=== PATIENT | female | born 1950 | race Caucasian/White ===

== ENCOUNTER → 2024-11-06 | Outpatient (CLI) | payer MEDICARE, SELFPAY ==
[2024-11-06 13:06] LABS: Hematocrit 39.1 % (37-47); Hemoglobin 13.2 g/dL (12.0-15.0); Immature Granulocytes Count 0.030 X10^3/uL (0.0-0.0); Mean Corp Hgb Conc 33.8 g/dL (32-36); Mean Corpuscular Volume 93.5 fL (81-99); Mean Platelet Vol. 9.0 fl (6.2-12.0); NRBC Flagged by Analyzer 0 % (0-5); Platelet Count 241 K/mm3 (150-450); RBC Distribution Width CV 12.4 % (11.6-14.6); RBC Distribution Width SD 42.9 fl (35.1-43.9); Red Blood Count 4.18 M/mm3 (4.2-5.4); White Blood Count 7.5 K/mm3 (4.4-11.0)
--- NOTE | 2024-11-06 13:15 | CT_ITS ---
PROCEDURE: EXTREMITY LOWER WITHOUT CONTRA 11/06/2024 REASON FOR EXAM: KNEE PAIN TECHNIQUE: EXTREMITY LOWER WITHOUT CONTRA Coronal and Sagittal reconstruction series were provided. CONTRAST: None One or more dose reduction techniques were used (e.g., Automated exposure control, adjustment of the mA and/or kV according to patient size, use of iterative reconstruction technique). 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 There is subcortical cyst formation in the medial and lateral femoral condyle and medial tibial plateau. Marginal osteophytes are present at all articular surfaces. There is a moderate joint effusion. There is no acute fracture or dislocation. Muscular structures appear intact. There is no soft tissue mass or cyst. There is a 2.4 x 1.3 cm enlarged left inguinal lymph node, image 55/89. There is no visible atherosclerosis. Radiopaque sutures are noted in the rectum. CT/Extremity Lower without Contra IMPRESSION: There is moderate to severe tricompartment osteoarthritis, most severe in the m edial compartment. There is a 2.4 x 1.3 cm enlarged left inguinal lymph node, image 55/89. Reading Location: [facility]
[2024-11-06 13:24] LABS: Prothrombin Time (Protime)PT. 13.5 SECONDS (11.7-14.9)
[2024-11-06 13:25] LABS: Partial Thromboplast Time 25.9 Seconds (24.1-36.2)
[2024-11-06 13:59] LABS: AST(SGOT) 29 U/L (<=31); Alanine Aminotransfer ALT/SGPT 35 U/L (<=34); Albumin, Serum 4.4 g/dL (3.4-4.8); Alkaline Phosphatase 64 U/L (35-104); Bilirubin, Direct 0.12 mg/dL (0.00-0.30); Globulin 2.7 g/dL (2.2-4.2); Magnesium 2.1 mg/dL (1.5-2.2)
[2024-11-06 14:04] LABS: Anion Gap 10 (5-15); BUN 14 mg/dL (4-19); BUN/Creat Ratio 19.0 RATIO (10-20); Calcium,Total 9.9 mg/dL (7.6-11.0); Carbon Dioxide 26.2 mmol/L (21.0-32.0); Chloride 104 mmol/L (98-108); Glucose 98 mg/dL (70-99); Potassium 4.1 mmol/L (3.3-5.1)
== END | disposition home or self-care (01) ==
PROVIDERS: Anesthesiology; PCP Internal Medicine; Referring Provider Student in an Organized Health Care Education/Training Program; Visit Provider Student in an Organized Health Care Education/Training Program
DX: Z01.818 Encounter for other preprocedural examination (principal); M17.12 Unilateral primary osteoarthritis, left knee
CPT/HCPCS: 36415; 73700; 80048; 80076; 83735; 85025; 85610; 85730; 87081

== ENCOUNTER 2024-11-27 07:08 | Day surgery (SDC) | payer MEDICARE, SELFPAY ==
--- NOTE | 2024-11-23 14:19 | PAT.ANE_ITS ---
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 When Was Last Pacemaker Check QUESTION #4 FULL TEXT: You/Your Family Experience fever (hyperthermia) with Anesthesia Last Oral Intake Last Oral intake: Last Oral Intake NPO since Meds taken in AM with sips of water? Meds patient instructed to take am of surgery PONV PONV - environmental engineering manager: PONV - environmental engineering manager Female Yes 11/01/24 14:50 HX of Motion Sickness No 11/01/24 14:50 HX of N/V After Surgery No 11/01/24 14:50 Non-Smoker Yes 11/01/24 14:50 Duration of Surgery greater Yes 11/01/24 14:50 than 60 minutes Number of Risk Factors 3 11/01/24 14:50 PONV Score Moderate Risk 11/01/24 14:50 Respiratory Assessment Respiratory Assessment - environmental engineering manager: Respiratory Tract Infection Hx - environmental engineering manager Hx Respiratory Tract Infection No 11/01/24 14:50 STOP Sleep Apnea STOP Sleep Apnea - environmental engineering manager: STOP Sleep Apnea - environmental engineering manager Hx Hypertension Yes: CONTROLLED WITH MED 11/01/24 14:50 Hx Sleep Apnea No 11/01/24 14:50 CPAP BIPAP Do you snore loudly (louder No 11/01/24 14:50 than talking or can be heard Do you often feel tired/ Yes 11/01/24 14:50 fatigued/ sleepy during daytime? Has anyone observed you stop No 11/01/24 14:50 breathing during sleep? STOP Results Positive 11/01/24 14:50 QUESTION #5 FULL TEXT : Do you snore loudly (louder than talking or can be heard through closed doors)? 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 Specify any problems Hx of Preganancy in last 3 No 11/01/24 14:50 Months Nurse Filling Out Transfusion DSCHRIBER 11/01/24 14:50 & Questions: Date: 11/01/24 11/01/24 14:50 Time: 14:55 11/01/24 14:50 Patient unable to answer at this time (ie. confused, unrespo /Reproduction History /Reproductive History - environmental engineering manager: /Reproductive Hx- environmental engineering manager Hx Now No 11/01/24 14:50 Gestational Age (in weeks): EDC: Hx Hx Para Hx Section SAB No 11/01/24 14:50 PFSH Medical History (Updated 11/01/24 @ 15:05 by Megha Samuel) Wears glasses Cancer Depression Anxiety Alcohol use Arthritis Fatty liver Easy bruising Injury of back Back pain History of diverticulitis Former smoker Asthma History of pain when walking History of edema History of echocardiogram History of stress test Hypertension Home Medications ?Medication ?Instructions ?Recorded ?Last Taken ?Type albuterol sulfate 90 mcg/actuation 1 inh inhalation Q6 H PRN shortness 11/01/24 Unknown History breath activated powder inhaler of breath or wheezing ascorbic acid (vitamin C) 500 mg 500 mg PO QDAY Unknown History chewable tablet (C-500) bupropion HCl 150 mg 24 hr tablet, 150 mg PO DAILY Unknown History extended release fluticasone 100 mcg-salmeterol 50 1 inh inhalation BID 11/01/24 Unknown History mcg/dose blistr powdr for inhalation (Advair Diskus) fluticasone propionate 50 2 spray intranasal DAILY Unknown History mcg/actuation nasal spray,suspension folic acid 1 mg tablet 1 mg PO DAILY 11/01/24 Unkno wn History ipratropium 0.5 mg-albuterol 3 mg 3 ml inhalation 4X/D AY PRN 11/01/24 Unknown History (2.5 mg base)/3 mL nebulization shortness of breath or wheezing soln lisinopril 10 mg tablet 10 mg PO DAILY 11/01/24 Unkn own History mecobalamin (vitamin B12) 1,000 1,000 mcg PO DAILY Unknown History mcg chewable tablet multivitamin (One-A-Day Essential 1 tab PO DAILY 11/01 Unknown History tablet) pyridoxine (vitamin B6) 100 mg 100 mg PO DAILY 5 Unknown History tablet Allergy/AdvReac Type Severity Reaction Status Date / Time No Known Allergies Allergy Verified 11/01/24 14:41 Surgical History (Updated 11/01/24 @ 15:05 by Megha Samuel) History of esophagogastroduodenoscopy (EGD) Hx of colonoscopy Hx of right knee surgery Hx of umbilical hernia repair Hx of right cataract extraction Hx of left cataract extraction History of partial colectomy Hx of hysterectomy Hx of cholecystectomy Hx of appendectomy Social History Smoking Status: Former smoker Audit: Pertinent Findings Pertinent Findings EKG Perinent findings: 2024. Normal sinus rhythm. Anterior septal infarct, age undetermined. Stress test pertinent findings: November 22, 2024. EKG portion of Lexiscan stress test is negative for inducible ischemia. EF of 53%. SPECT perfusion images during rest and stress show homogenous radiotracer uptake. No defects to suggest ischemia or infarction. Consult pertinent findings: November 14, 2024. Dr. Hernandez. Patient is cleared for scheduled procedure. Recommendation Anesthesia Recommendation Anesthesia recommendation: OPTIMIZED for anesthesia
--- NOTE | 2024-11-23 16:44 | HP.PCM_ITS ---
History and Physical History and Physical Patient Name: Sandra BurlesonB: 1950 From: DATE OF PRE-OPERATIVE EXAM: 11/22/2024 DATE OF SURGERY: 11/27/2024 SCHEDULED PROCEDURE: Robotic assisted left total knee arthroplasty HISTORY OF PRESENT ILLNESS: Patient has had left knee for the past 3 years. Patient states that her pain is constant. Patient states that walking makes her pain worse. Patient states that sitting, resting, elevating the leg helps to alleviate her pain. Patient states that she is no longer able to do leisurely activities such as golf due to her pain. Patient states that she has tried rest, ice, elevation, compression, home exercises, oral medications with help. Patient states oral medications she has tried include Tylenol. Patient states that she has had 2 cortisone injections. Patient denies any history of surgery on the affected joint. Patient states that she has had to walk with a walker due to her left knee. Pain is interfering with her ability to arm activities of daily living as well as golf which she enjoys. She is to be ready for golf season next year. REVIEW OF SYSTEMS: Review Of Systems: Constitutional: Denies change in appetite, fever and weight change. Cardiovasular: Denies chest pain, heart murmur and irregular heartbeat. Respiratory: Denies cough, pneumonia, shortness of breath, tuberculosis and wheezing. Gastrointestinal: Denies constipation, diarrhea, heartburn, nausea, rectal itching, bloody stools and vomiting. Genitourinary: . (F Genital Sx) Denies incontinence. Musculoskeletal: Denies leg swelling, pain, trouble walking and weakness. Skin: Denies Raynaud's, history of shingles and tattoo. Neurological: Denies ambulatory dysfunction, dizziness, numbness/tingling and tremor. Psychiatric: Denies anxiety, insomnia and stress. Hematologic/Lymphatic: Denies anemia, bleeding/bruising tendency and past transfusion. Reviewed, no changes. PAST MEDICAL HISTORY: Advance Care Plan: Power Of Electrolysis Operator Effective Date: 11/08/2023 Living Will Effective Date: 11/08/2023 Past Medical History: Medical Problems: Asthma Cancer - SKIN Depression, Psoriasis, Arthritis, High Blood Pressure Accidents: Sports Related Injury - (08/2019) GOLFING- FELL Surgical Hx: Appendectomy - (1975) Gallbladder - (1994) [place] Hysterectomy - (1975) [facility] Colon Resection - (2013) Cataracts - (2014) DR. HERNANDEZ Hernia Repair - (2021) RT Knee- Arthro Medial Meniscectomy and Chondroplasty - (07/28/2024) [email or web address] Anesthesia Complications: None Assistive Devices: Glasses Reviewed, no changes. SOCIAL HISTORY: Social History: Marital: .Occupation: Retired.Work Status: Retired.Hand Dominance: Right- handed. Personal Habits: Cigarette Use: Former.Smokeless Tobacco: Never Used Smokeless Tobacco.E-Cigarette Use: Never used.Alcohol: Daily.Drug Use: Denies Use.Enjoy Exercising: Daily. Reviewed, no changes. VITALS: Ht: 64 Wt: 175lb Wt k.380 BMI: 30.0 BP: 142/90 Pulse: 84 Resp: 16 T: 97.7 T: 36.5C Pain Level: 0/10 O2SatR: 94 ALLERGIES: No Known Drug Allergy MEDICATIONS: Oxycodone HCL 5 mg 1-2 tab by mouth every 4-6 hours as needed for pain, Meloxicam 7.5 mg 1 by mouth twice a day for 4 weeks, Famotidine 20 mg 1 by mouth every day, Ondansetron HCL 4 mg 1-2 tablets by mouth every 8 hours as needed for nausea/vomiting, Multi Vitamin take one(1) tablet daily., Lisinopril 10 mg once a day, Wixela Inhub 250-50 mcg/Act twice a day, Effexor XR 150 mg daily, Allergy Relief 50 mcg/Act 1 by mouth every day, Cetirizine HCL 10 mg 1 by mouth every day, One-A-Day Essential 1po qday, Vitamin B6 100 mg 1 by mouth everyday, Vitamin B12 1000 mcg 1 by mouth every day, Folic Acid 1po qday, Garcinia Cambogia-Chromium 500-200 MG-mcg 1po qday, Turmeric 500 mg take per directions on bottle PRE-OP EXAM: General appearance:NORMAL Other: Eyes: Conjunctivae and lids: NORMAL Pupils: ERR Ears, Nose, Mouth, and Throat: NORMAL Other: Inspection of lips, teeth and gums: NORMAL Other: Neck: Examination of neck: no masses noted. Respiratory: Assessment of respiratory effort: NORMAL Other: Auscultation of lungs: clear to auscultation no wheezes, rhonchi or rales. Cardiovascular: Auscultation of heart: regular rate and rhythm, no murmurs, gallops or rubs. Exam of carotid arteries: NORMAL Other: Gastrointestinal: Exam of abdomen: soft, nontender, nondistended bowel sounds present. Lymphatic: Palpation of nodes in neck: NORMAL Other: Palpation of nodes in Axillae: NORMAL Other: Neurological: see below Psychiatric: Orientation to time, place and person: NORMAL Other: Mood and affect: NORMAL Other: PHYSICAL EXAMINATION: Knee Physical Exam General Appearance: well-nourished, well developed in no acute distress Orientation: oriented to person, place and time. Mood / Affect: calm Gait: normal Coordination: normal Knee Exam Bilateral Inspection / Palpation LE (R/L): Medial joint line tenderness bilaterally. 1+ right knee effusion Knee ROM (R/L): 0-130 bilaterally Knee A/P Stability (R/L): Héctor IA/IA; Posterior Drawer Neg B/L Knee M/L Stability (R/L): Varus / Valgus - Firm endpoints and stable B/L Strength LE: 5/5 EHL, Ankle Dorsiflexion, Ankle Plantar flexion bilaterally Sensation: Subjective normal distal sensation bilaterally Vasculature: <2 second capillary bilaterally LE Skin: no rashes or lesions bilaterally Special Tests: Carlos's positive medial right, Steinmann's positive right IMAGING STUDIES: XRAY Report Date of Study: 06/05/24 X-rays ordered and reviewed by myself personally in the office today reveal 4 views skeletally mature left knee weightbearing AP, tunnel view, lateral left knee, merchant view left knee demonstrates grade 4 medial compartment osteoarthritic changes with large periarticular osteophytes and complete loss of joint space and deformity the bone ends. Lateral compartment demonstrates moderate pericecal osteophytes with minimal joint space narrowing consistent with grade 2-3 osteoarthritis. The left knee demonstrates mild lateral tilt of the patella with lateral joint space narrowing and minimal osteophyte formation. IMPRESSION: Asthma Skin cancer Depression Psoriasis High blood pressure Hyperlipidemia Hepatic steatosis Primary osteoarthritis left knee Obesity PLAN: The surgeon did discuss and review all treatment options with the patient including surgical versus nonsurgical. At this time the patient does wish to proceed with the above-stated procedure. Potential risks benefits and complications of the procedure were discussed and reviewed with the patient including but not limited to , infection, nerve and blood vessel damage, persistent pain, numbness, tingling, paresthesias, blood clot, pulmonary em bolism, in the requirement for possible further surgery. Patient expressed full understanding. Has no further questions for the doctor. Does agree to proceed with the above-stated procedure, and has signed the appropriate surgery consent form. DVT prophylaxis: Aspirin 81 mg twice daily for 4 weeks postoperatively, LEATHA hose for 2 weeks postoperatively. Pain medications: Patient will be taking Tylenol 1000 mg every 8 hours, meloxicam for 30 days postoperatively, oxycodone as needed for pain control. Famotidine for 30 days postoperatively. Zofran as needed for nausea and vomiting Senna as needed for postoperative constipation. ___ I have re-examined the patient. There are no clinical changes since date of exam. ___ See progress notes for changes. ___ Dictated on admission Date: Time: Signature:
[2024-11-27] VITALS (10 sets, daily range): BP systolic 105–149; BP diastolic 64–91; PULSE 70–94; RESP 12–18; TEMP 36.1–36.9; O2SAT 93–100; BMI 28.4
--- OUTSIDE RECORDS SUMMARY | 2024-11-27 07:21 | XMS RPT_ITS | CCD ---
Author Organization [facility] Care Team Providers Care Astrophysics Professor Name Role Phone Christy Rodriguez Primary Care Provider MICHAEL GARCIA, DR MC Primary Care Physician Christy Rodriguez Primary Care Provider MICHAEL GARCIA, DR MC Attending Unavailable MICHAEL GARCIA, DR MC Primary Care Unavailable MICHAEL GARCIA, DR MC Attending Unavailable MICHAEL GARCIA, DR MC Primary Care Unavailable MICHAEL GARCIA, DR MC Primary Care Unavailable MICHAEL GARCIA, DR MC Attending Unavailable MICHAEL GARCIA, DR MC Primary Care Unavailable RICK COOPER Attending Unavaila ble Michael GARCIA, Dr. Mc Primary Care Provider Guera GARCIA, Dr. Muñoz Attending Provider [phone] Guera GARCIA, Dr. Muñoz Referring Provider [phone] MICHAEL GARCIA, DR MC Attending Unavailable MICHAEL GARCIA, DR MC Primary Care Unavailable MICHAEL GARCIA, DR MC Attending Unavailable MICHAEL GARCIA, DR MC Primary Care Unavailable TONI CEBALLOS DO Attending Unavailable MICHAEL GARCIA, DR MC Primary Care Unavailable MICHAEL GARCIA, DR MC Primary Care Unavailable TONI CEBALLOS DO Attending Unavailable TONI CEBALLOS DO Attending Unavailable MICHAEL GARCIA, DR MC Primary Care Unavailable Christy Rodriguez Primary Care Unavailable Toni Ceballos Attending Unavailable Christy Rodriguez Primary Care Unavailable Toni Ceballos Referring Unavailable Toni Ceballos Attending Unavailable Medications Current Medications Medication Drug Class(es) Dates Sig (Normalized) Sig (Original) 200 actuat albuterol 0.09 mg/actuat dry powder inhaler (3 sources) beta2-Adrenergic Agonist Start: 08-13-2025 Albuterol Sulfate 90 mcg/actuation aerosol powdr breath activated Active 1 NMA INHALATION EVERY 6 HOURS as needed for shortness of breath or wheezing November 01, 2024 12:00am take 2 puff(s) by in halation every six hours as needed for wheezing albuterol sulfate HFA 108 (90 Base) MCG/ACT inhaler Inhale 2 puffs into the lungs every 6 hours as needed for Wheezing 0 Active take 2 puff(s) by in halation every six hours as needed for wheezing albuterol sulfate HFA 108 (90 Base) MCG/ACT inhaler Inhale 2 puffs into the lungs every 6 hours as needed for Wheezing 0 Active Albuterol (Eqv-ProAir HFA) 90 mcg/inh inhalation aerosol (7 sources) Start: 2022 take 2 puff(s) by mouth every four to six hours Albuterol (Eqv-ProAir HFA) 90 mcg/inh inhalation aerosol inhale 2 puffs by mouth every 4 to 6 hours if needed Start Date: 06/20/22 Status: Ordered Medication Dispense Status: Completed Total Allowed Fills: 1 Fills Dispensed: 0 Start: 2022 take 2 puff(s) by mo uth every four to six hours Albuterol (Eqv-ProAir HFA) 90 mcg/inh inhalation aerosol inhale 2 puffs by mouth every 4 to 6 hours if needed Start Date: 06/20/22 Status: Ordered albuterol 0.833 mg/ml / ipratropium bromide 0.167 mg/ml inhalation solution (8 sources) Anticholinergic, beta2-Adrenergic Agonist Start: 11-01-2024 take 1 mL by inhalation four times daily as needed for wheezing Ipratropium-Albuterol 0.5 mg-3 mg(2.5 mg base)/3 mL solution for nebulization Active 3 mL INHALATION 4 TIMES DAILY as needed for shortness of breath or wheezing November 01, 2024 12:00am Start: 06-24-2022 End: 08-23-2022 albuterol-ipratropium 2.5 mg -0.5 mg/3 mL inhalation solution Dose = 3 mL, Inhalation, QID, and q4h prn., # 720 mL, 0 Refill(s), Pharmacy: [facility] #[id number], 167.7, cm, 04/01/23 23:28:00 EDT, Height Start Date: 06/24/22 Stop Date: 08/23/22 Status: Ordered Medication Dispense Status: Completed Quantity: 720.0 Unit: mL Total Allowed Fills: 1 Fills Dispensed: 0 albuterol sulfate HFA 108 (90 Base) MCG/ACT inhaler (2 sources) take 2 puff(s) by inhalation every six hours as needed for wheezing albuterol sulfate HFA 108 (90 Base) MCG/ACT inhaler Inhale 2 puffs into the lungs every 6 hours as needed for Wheezing 0 Active ascorbic acid 500 mg oral tablet (1 source) Vitamin C Start: take 1 tablet by mouth once daily Ascorbic Acid (Vitamin C) (C-500) 500 mg tablet,chewable Active 500 mg PO daily November 01, 2024 12:00am aspirin 81 mg delayed release oral tablet (7 sources) Platelet Aggregation Inhibitor, Nonsteroidal Anti-inflammatory Drug Start: aspirin 81 mg oral delayed release tablet Dose : 81 mg = 1 tab(s), Oral, Daily, 0 Refill(s) Start Date: 06/20/22 Status: Ordered Medication Dispense Status: Completed Total Allowed Fills: 1 Fills Dispensed: 0 24 hr buPROPion hydrochloride 150 mg extended release oral tablet (1 source) Aminoketone Start: take 1 tablet by mouth once daily Bupropion Hcl 150 mg tablet extended release 24 hr Active 150 mg PO DAILY November 01, 2024 12:00am cefuroxime 500 mg oral tablet (1 source) Cephalosporin Antibacterial Start: End: cefuroxime 500 mg oral tablet Dose : 500 mg = 1 tab(s), Oral, BID, X 7 day(s), # 14 tab(s), 0 Refill(s), 07/01/22 14:59:00 EDT, Pharmacy: [facility] #[id number], 167.7, cm, 06/20/22 23:28:00 EDT, Height, 79.4 Start Date: 06/24/22 Stop Date: 07/01/22 Status: Ordered cetirizine hydrochloride 10 mg oral tablet (4 sources) Histamine-1 Receptor Antagonist take 1 tablet by mouth once daily cetirizine (ZYRTEC) 10 MG tablet Take 10 mg by mouth daily 0 Active citalopram 20 mg oral tablet (4 sources) Serotonin Reuptake Inhibitor take 1 tablet by mouth once daily citalopram (CELEXA) 20 MG tablet Take 20 mg by mouth daily 0 Active fluticasone propionate 0.05 mg/actuat metered dose nasal spray (1 source) Corticosteroid Start: 025 Fluticasone Propionate 50 mcg/actuation spray,suspension Active 2 NMA INTRANASAL DAILY November 01, 2024 12:00am Fluticasone Propion-Salmeterol (19 sources) Corticosteroid, beta2-Adrenergic Agonist Start: 025 Fluticasone Propion-Salmeterol (Advair Diskus) 100-50 mcg/dose blister with device Active 1 NMA INHALATION TWICE A DAY November 01, 2024 12:00am Start: 2022 take 1 dose by inhal ation twice daily Advair Diskus 100 mcg-50 mcg inhalation powder Dose = 1 puff(s), Inhalation, BID, # 60 EA, 0 Refill(s) Start Date: 06/20/22 Status: Ordered Medication Dispense Status: Completed Quantity: 60.0 Unit: EA Total Allowed Fills: 1 Fills Dispensed: 0 Start: 2022 take 1 dose by inhal ation twice daily Advair Diskus 100 mcg-50 mcg inhalation powder Dose = 1 puff(s), Inhalation, BID, # 60 EA, 0 Refill(s) Start Date: 06/20/22 Status: Ordered Start: 2022 take 1 dose by inhal ation twice daily Wixela Inhub 100 mcg-50 mcg inhalation powder Dose = 1 puff(s), Inhalation, BID, # 60 EA, 0 Refill(s) Start Date: 06/20/22 Status: Ordered Medication Dispense Status: Completed Quantity: 60.0 Unit: EA Total Allowed Fills: 1 Fills Dispensed: 0 take 1 puff(s) by in halation every twelve hours fluticasone-salmeterol (ADVAIR) 100-50 MCG/DOSE diskus inhaler Inhale 1 puff into the lungs every 12 hours 0 Active folic acid 1 mg oral tablet (1 source) Start: 11-01-2024 take 1 tablet by mouth once daily Folic Acid 1 mg tablet Active 1 mg PO DAILY November 01, 2024 12:00am lisinopril 10 mg oral tablet (1 source) Angiotensin Converting Enzyme Inhibitor Start: 11-01-2024 take 1 tablet by mouth once daily Lisinopril 10 mg tablet Active 10 mg PO DAILY November 01, 2024 12:00am mecobalamin 1 mg chewable tablet (1 source) Start: 11-01-2024 take 1 tablet by mouth once daily Mecobalamin (Vitamin B12) 1,000 mcg tablet,chewable Active 1000 ug PO DAILY November 01, 2024 12:00am Multivitamin (One-A-Day Essential) tablet (1 source) Start: 11-01-2024 Multivitamin (One-A-Day Essential) tablet Active 1 {tbl} PO DAILY November 01, 2024 12:00am nebivolol 5 mg oral tablet (7 sources) Start: 2022 Bystolic 5 mg oral tablet Dose : 5 mg = 1 tab(s), Oral, qDay, # 30 tab(s), 0 Refill(s) Start Date: 06/20/22 Status: Ordered Medication Dispense Status: Completed Quantity: 30.0 Unit: tab(s) Total Allowed Fills: 1 Fills Dispensed: 0 24 hr venlafaxine 150 mg extended release oral capsule (7 sources) Serotonin and Norepinephrine Reuptake Inhibitor Start: 2022 venlafaxine 150 mg oral capsule, extended release Dose : 150 mg = 1 cap(s), Oral, qDayM, 0 Refill(s) Start Date: 06/20/22 Status: Ordered Medication Dispense Status: Completed Total Allowed Fills: 1 Fills Dispensed: 0 vitamin b6 100 mg oral tablet (1 source) Start: 11-01-2024 take 1 tablet by mouth once daily Pyridoxine (Vitamin B6) 100 mg tablet Active 100 mg PO DAILY November 01, 2024 12:00am Completed/Discontinued Medications Medication Drug Class(es) Dates Sig (Normalized) Sig (Original) 12 hr guaiFENesin 600 mg extended release oral tablet (8 sources) Start: 2022 End: 07-01-2022 Mucinex 600 mg oral tablet, extended release Dose : 600 mg = 1 tab(s), Oral, q12h, # 14 tab(s), 0 Refill(s) Start Date: 06/20/22 Stop Date: 06/27/22 Status: Ordered Medication Dispense Status: Completed Quantity: 14.0 Unit: tab(s) Total Allowed Fills: 1 Fills Dispensed: 0 predniSONE 10 mg oral tablet (7 sources) Start: 06-24-2022 End: 07-08-2022 take 1 tablet by mouth once daily prednisone 10mg tab (TAPER) 84-69-77-30-20-10- 5mg x 2days/dose, Oral, qDay, 3T9ppio,5Z7ezbf,4X 2days,6M2yplk,2X2d ays,6X6qymh, X2 days., # 43 tab(s), 0 Refill(s), Pharmacy: [facility] #[id number], 167.7, cm, 06/20/22 23:28:00 EDT, Height Start Date: 06/24/22 Stop Date: 07/08/22 Status: Ordered Medication Dispense Status: Completed Quantity: 43.0 Unit: tab(s) Total Allowed Fills: 1 Fills Dispensed: 0 Problems Active Problems Problem Classification Problem Date Documented Da te Episodic/Chronic Asthma (1 source) Asthma; Translations: [Unspecified asthma, uncomplicated] Onset: 06-22-2022 Chronic Essential hypertension (1 source) Essential hypertension; Translations: [Essential (primary) hypertension] Onset: 06-21-2022 Chronic Fever of unknown origin (1 source) Fever; Translations: [Fever, unspecified] Onset: 06-21-2022 Episodic Nonspecific chest pain (1 source) Precordial pain; Translations: [Precordial pain] Onset: 11-15-2024 Episodic Other screening for suspected conditions (not mental disorders or infectious disease) (1 source) Patient encounter status; Translations: [Encounter for screening mammogram for malignant neoplasm of breast] Episodic Pneumonia (except that caused by tuberculosis or sexually transmitted disease) (16 sources) Pneumonia; Translations: [Pneumonia, unspecified organism] Onset: 06-22-2022 Episodic Residual codes; unclassified (1 source) Menopause present; Translations: [Asymptomatic menopausal state] Episodic Past or Other Problems Problem Classification Problem Date Documented Da te Episodic/Chronic Cataract (8 sources) Combined forms of age-related cataract, right eye; Translations: [Combined forms of age-related cataract, left eye] Onset: 08-25-2018 Resolved: 10-17-2018 08-29-2018 Chronic Joint disorders and dislocations; trauma-related (1 source) Complex tear of medial meniscus, current injury, right knee, subsequent encounter; Translations: [Complex tear of medial meniscus, current injury, right knee, subsequent encounter] Onset: 08-04-2024 Episodic Results Test Name Value Interpretation Reference Range Facility MR/PATGovind 11-23-2024 MR/PAT.[facility] Medical Records Department [address] [place] [address] PAT - Anesthesia 11/23/24 1419 MR#: [id number] Acct: [id number] Name: SANDRA SRIVASTAVA Rep #: [id number] : 1950 74 From: Massimo Billings MD PCP: Dr. Christy Rodriguez, DO Status:PRE ALC Y Race: C [place] [facility] [place]Assessment Diagnosis/Proposed Procedure Planned Operative Procedure(s): LEFT TOTAL KNEE ARTHROPLASTY Anesthesia History Anesthesia History - patent agent: Anesthesia History - patent agent Hx Hospitalization No 11/01/24 14:50 Any Problems With Anesthesia No 11/01/24 14:50 Cholinesterase deficiency No 11/01/24 14:50 You/Your Family Experience No 11/01/24 14:50 fever (hyperthermia) with Relationship Recent Exposure to Contagious Disease Does patient have nerve No 11/01/24 14:50 stimulator Patient instructed to have device shut off --Does patient have Pacemaker or ICD? When Was Last Pacemaker Check QUESTION #4 FULL TEXT: You/Your Family Experience fever (hyperthermia) with Anesthesia Last Oral Intake Last Oral intake: Last Oral Intake NPO since Meds taken in AM with sips of water? Meds patient instructed to take am of surgery PONV PONV - patent agent: PONV - patent agent Female Yes 11/01/24 14:50 HX of Motion Sickness No 11/01/24 14:50 HX of N/V After Surgery No 11/01/24 14:50 Non-Smoker Yes 11/01/24 14:50 Duration of Surgery greater Yes 11/01/24 14:50 than 60 minutes Number of Risk Factors 3 11/01/24 14:50 PONV Score Moderate Risk 11/01/24 14:50 Respiratory Assessment Respiratory Assessment - patent agent: Respiratory Tract Infection Hx - patent agent Hx Respiratory Tract Infection No 11/01/24 14:50 STOP Sleep Apnea STOP Sleep Apnea - patent agent: STOP Sleep Apnea - patent agent Hx Hypertension Yes: CONTROLLED WITH MED 11/01/24 14:50 Hx Sleep Apnea No 11/01/24 14:50 CPAP BIPAP Do you snore loudly (louder No 11/01/24 14:50 than talking or can be heard Do you often feel tired/ Yes 11/01/24 14:50 fatigued/ sleepy during daytime? Has anyone observed you stop No 11/01/24 14:50 breathing during sleep? STOP Results Positive 11/01/24 14:50 QUESTION #5 FULL TEXT : Do you snore loudly (louder than talking or can be heard through closed doors)? Tobacco Use History Tobacco Use History - patent agent: Tobacco Use History - patent agent Tobacco Use Smoking Status Former smoker 11/01/24 14:50 Hx Tobacco Use Yes 11/01/24 14:50 Years Smoking Packs Smoked per Day Smoking Cessation Date was No - quit smoking greater 11/01/24 14:50 within the last 15 years than 15 years ago Hx Smoking Cessation Date Hx Smoking Cessation Counseling Hematologic Medial History Hematologic Hx - patent agent: Hematologic Medical Hx - manganese heater Hx of Blood Transfusion No 11/01/24 14:50 Hx of Transfusion in last 3 No 11/01/24 14:50 Months Date of Last Transfusion (if within last 3 months) Ever experience any problems No 11/01/24 14:50 with transfusion(s)? Specify any problems Hx of Preganancy in last 3 No 11/01/24 14:50 Months Nurse Filling Out Transfusion DSCHRIBER 11/01/24 14:50 Questions: Date: 11/01/24 11/01/24 14:50 Time: 14:55 11/01/24 14:50 Patient unable to answer at this time (ie. confused, unrespo /Reproduction History /Reproductive History - patent agent: /Reproductive Hx- patent agent Hx Now No 11/01/24 14:50 Gestational Age (in weeks): EDC: Hx Hx Para Hx Section SAB No 11/01/24 14:50 PFSH Medical History (Updated 11/01/24 @ 15:05 by Megha Samuel) Wears glasses Cancer Depression Anxiety Alcohol use Arthritis Fatty liver Easy bruising Injury of back Back pain History of diverticulitis Former smoker Asthma History of pain when walking History of edema History of echocardiogram History of stress test Hypertension Home Medications ???Medication ???Instructions ???Recorded ???Last Taken ???Type albuterol sulfate 90 mcg/actuation 1 inh inhalation Q6H PRN shortne ss 11/01/24 Unknown History breath activated powder inhaler of breath or wheezing ascorbic acid (vitamin C) 500 mg 500 mg PO QDAY 11/01/24 Unknown Hi story chewable tablet (C-500) bupropion HCl 150 mg 24 hr tablet, 150 mg PO DAILY 11/01/24 Unknown History extended release fluticasone 100 mcg-salmeterol 50 1 inh inhalation BID 11/01/24 Unk nown History mcg/dose blistr powdr for inhalation (Advair Diskus) fluticasone propionate 50 2 spray intranasal DAILY 11/01/24 (more content not included)... Normal [facility] MYOCARDIAL SPECT STRESS/R ESTon 11-23-2024 PR MYOCARDIAL SPECT STRESS/REST ORIGINAL PR MYOCARDIAL SPECT STRESS/REST CLINICAL STATEMENT: PRECORDIAL PAIN TECHNIQUE: Lexiscan dose:0.4 mg Radiopharmaceutical (stress): Tc-99m Sestamibi Dose:25.4 mCi Radiopharmaceutical (rest): Tc-99m Sestamibi Dose:9.9 mCi SPECT acquisition and processing Reconstruction and reorientation of SPECT images into short axis, vertical and horizontal long axis planes Quantitative LVEF assessment COMPARISON:None REPORT:Overall, image quality is good. Rotating planar images show no significant patient motion. SPECT perfusion images during rest and stress show homogenous radiotracer uptake. No defects to suggest ischemia or infarction. GATED SPECT images show normal LV size and function. LVEF calculated at 53% IMPRESSION: 1. No evidence for ischemia. 2. No evidence of infarction. 3. Normal LV size and function. 4. No previous for comparison. Interpreted By: Bebo Lindsay Preliminary Report By: Bebo Lindsay Electronically Signed By: Bebo Lindsay Dictated Date: 11/23/2024 8:14:15 AM Prelim Date: 11/23/2024 8:14:15 AM Sign Date: 11/23/2024 8:17:50 AM Ordering Provider:Christy Rodriguez Normal [facility] MRSA/SAID NASAL SCREENon MRSA+SAID SCRN Reason for Exam: PRE OP MRSA MRSA Negative S. AUREUS S. aureus Negative Normal [facility] Comment on above: Performed By: #### L 500.2500, L100.0100, M100.651 #### [facility] [address] [place], [place], [id number] Absolute lymphocyte countOrd ered By: Toni Ceballos on 11-06-2024 Lymphocytes Auto (Unsp spec) [#/Vol] 1.74 10*3/uL 0.83-4.51 [facility] Absolute neutrophil countOrd ered By: Toni Ceballos on 11-06-2024 Neutrophils (Bld) [#/Vol] 4.3 10*3/uL 2.0-7.7 [facility] Activated partial thrombopla stin time (aPTT) in platelet poor plasma by coagulation aOrdered By: Norman Acosta on 11-06-2024 aPTT Coag (PPP) [Time] 25.9 s 24.1-36.2 [facility] Anion gap in Serum or Plasma Ordered By: Toni Ceballos on 11-06-2024 Anion gap [Moles/Vol] 10 mmol/L 5-15 [facility] Automated lymphocyte count a s percentage of total leukocytesOrdered By: Toni Ceballos on 11-06-2024 Lymphocytes/100 WBC Auto (Unsp spec) 23.4 % - [facility] BUN/creatinine ratioOrdered By: Toni Ceballos on 11-06-2024 Urea nitrogen/Creatinine [Mass ratio] 19.0 mg/mg 10- [facility] Basic Metabolic Profile (BMP )on 11-06-2024 BUN/CRE 19.0 RATIO Normal - [facility] Comment on above: Performed By: #### L 500.2500, L100.0100, M100.651 #### [facility] [address] [place], [address] Calcium [Mass/Vol] 9.9 mg/dL Normal 7.6-11.0 [facility] Comment on above: Performed By: #### L 500.2500, L100.0100, M100.651 #### [facility] [address] [place], [address] Chloride [Moles/Vol] 104 mmol/L Normal 98-108 [facility] Comment on above: Performed By: #### L 500.2500, L100.0100, M100.651 #### [facility] [address] [place], [address] CO2 [Moles/Vol] 26.2 mmol/L Normal 21.0-32.0 [facility] Comment on above: Performed By: #### L 500.2500, L100.0100, M100.651 #### [facility] [address] [place], [address] Creatinine [Mass/Vol] 0.76 mg/dL Normal 0.70-1.20 [facility] Comment on above: Performed By: #### L 500.2500, L100.0100, M100.651 #### [facility] [address] [place], [address] GAP 10 Normal 5-15 [facility] Comment on above: Performed By: #### L 500.2500, L100.0100, M100.651 #### [facility] [address] [place], [address] GFR/1.73 sq M.predicted among non-blacks MDRD (S/P/Bld) [Vol rate/Area] 83 mL/min/{1.73_m2} Normal >60 [facility] Comment on above: Result Comment: mL/m in/1.73m2 CKD-EPI Creatinine Equation (2020) Performed By: #### L 500.2500, L100.0100, M100.651 #### [facility] [address] [place], [address] Glucose [Mass/Vol] 98 mg/dL Normal 70-99 [facility] Comment on above: Performed By: #### L 500.2500, L100.0100, M100.651 #### [facility] [address] [place], [address] Potassium [Moles/Vol] 4.1 mmol/L Normal 3.3-5.1 [facility] Comment on above: Performed By: #### L 500.2500, L100.0100, M100.651 #### [facility] [address] [place], [address] Sodium [Moles/Vol] 140 mmol/L Normal 133-145 [facility] Comment on above: Performed By: #### L 500.2500, L100.0100, M100.651 #### [facility] [address] [place], [address] Urea nitrogen [Mass/Vol] 14 mg/dL Normal 4-19 [facility] Comment on above: Performed By: #### L 500.2500, L100.0100, M100.651 #### [facility] [address] [place], [address] Basophil percentageOrdered B y: Toni Ceballos on 11-06-2024 Basophils/100 WBC (Bld) 0.5 % 0-1 [facility] Bilirubin directOrdered By: Norman Acosta on 11-06-2024 Bilirubin.direct [Mass/Vol] 0.12 mg/dL 0.00-0.30 [facility] Bilirubin, totalOrdered By: Norman Acosta on 11-06-2024 Bilirubin [Mass/Vol] 0.32 mg/dL 0.00-1.30 [facility] CBC W/Diff, Automatedon 10-20 Absolute Lymph 1.74 X10 3/uL Normal 0.83-4.51 [facility] Comment on above: Performed By: #### L 500.2500, L100.0100, M100.651 #### [facility] [address] [place], [address] Absolute Neut 4.3 X10 3/uL Normal 2.0-7.7 [facility] Comment on above: Performed By: #### L 500.2500, L100.0100, M100.651 #### [facility] [address] [place], [address] Basophils/100 WBC (Bld) 0.5 % Normal 0-1 [facility] Comment on above: Performed By: #### L 500.2500, L100.0100, M100.651 #### [facility] [address] [place], [address] Eosinophils/100 WBC (Bld) 6.0 % High 0-5 [facility] Comment on above: Performed By: #### L 500.2500, L100.0100, M100.651 #### [facility] [address] [place], [address] Erythrocyte distribution width (RBC) [Ratio] 12.4 % Normal 11.6-14.6 [facility] Comment on above: Performed By: #### L 500.2500, L100.0100, M100.651 #### [facility] [address] [place], [address] Hematocrit (Bld) [Volume fraction] 39.1 % Normal 37-47 [facility] Comment on above: Performed By: #### L 500.2500, L100.0100, M100.651 #### [facility] [address] [place], [address] Hemoglobin (Bld) [Mass/Vol] 13.2 g/dL Normal 12.0-15.0 [facility] Comment on above: Performed By: #### L 500.2500, L100.0100, M100.651 #### [facility] [address] [place], [address] IG% 0.400 Normal 0.0-0.9 [facility] Comment on above: Result Comment: IG% - Immature Granulocytes (promyelocytes, myelocytes and metamyelocytes) > 1% indicates that a LEFT SHIFT is Present. Performed By: #### L 500.2500, L100.0100, M100.651 #### [facility] [address] [place], [address] Lymphocytes/100 WBC (Bld) 23.4 % Normal 19-41 [facility] Comment on above: Performed By: #### L 500.2500, L100.0100, M100.651 #### [facility] [address] [place], [address] MCH (RBC) [Entitic mass] 31.6 pg Normal 27.0-32.0 [facility] Comment on above: Performed By: #### L 500.2500, L100.0100, M100.651 #### [facility] [address] [place], [address] MCHC (RBC) [Mass/Vol] 33.8 g/dL Normal 32-36 [facility] Comment on above: Performed By: #### L 500.2500, L100.0100, M100.651 #### [facility] [address] [place], [address] MCV (RBC) [Entitic vol] 93.5 fL Normal 81-99 [facility] Comment on above: Performed By: #### L 500.2500, L100.0100, M100.651 #### [facility] [address] [place], [address] Monocytes/100 WBC (Bld) 11.8 % High 0-10 [facility] Comment on above: Performed By: #### L 500.2500, L100.0100, M100.651 #### [facility] [address] [place], [address] Neutrophils/100 WBC (Bld) 57.9 % Normal 47-70 [facility] Comment on above: Performed By: #### L 500.2500, L100.0100, M100.651 #### [facility] [address] [place], [address] Nucleated RBC (Bld) [#/Vol] 0 10*3/uL Normal 0-5 [facility] Comment on above: Performed By: #### L 500.2500, L100.0100, M100.651 #### [facility] [address] [place], [address] Platelet mean volume (Bld) [Entitic vol] 9.0 fL Normal 6.2-12.0 [facility] Comment on above: Performed By: #### L 500.2500, L100.0100, M100.651 #### [facility] [address] [place], [address] Platelets (Bld) [#/Vol] 241 10*3/uL Normal 150-450 [facility] Comment on above: Performed By: #### L 500.2500, L100.0100, M100.65 #### [facility] [address] [place], [address] RBC (Bld) [#/Vol] 4.18 10*6/uL Low 4.2-5.4 [facility] Comment on above: Performed By: #### L 500.2500, L100.0100, M100.651 #### [facility] [address] [place], [address] RDW SD 42.9 fl Normal 35.1-43.9 [facility] Comment on above: Performed By: #### L 500.2500, L100.0100, M100.651 #### [facility] [address] [place], [address] WBC (Bld) [#/Vol] 7.5 10*3/uL Normal 4.4-11.0 [facility] Comment on above: Performed By: #### L 500.2500, L100.0100, M100.651 #### [facility] [address] [place], [address] Carbon dioxide, total [Moles /volume] in Central venous bloodOrdered By: Toni Ceballos on 11-06-2024 CO2 [Moles/Vol] 26.2 mmol/L 21.0-32.0 [facility] Chloride assayOrdered By: Ruby cholas Guera on 11-06-2024 Chloride [Moles/Vol] 104 mmol/L 98-108 [facility] Eosinophil percentageOrdered By: Toni Ceballos on 11-06-2024 Eosinophils/100 WBC (Bld) 6.0 % High 0-5 [facility] Erythrocyte distribution wid th ratioOrdered By: Toni Ceballos on 11-06-2024 Erythrocyte distribution width (RBC) [Ratio] 12.4 % 11.6-14.6 [facility] Erythrocyte distribution wid th standard deviationOrdered By: Toni Ceballos on 11-06-2024 Erythrocyte distribution width (RBC) [Ratio] 42.9 fl 35.1-43.9 [facility] Extremity Lower without Cont raon 11-06-2024 Extremity Lower without Contra [facility] [address] [place] [address] Extremity Lower without Contra MR#: [id number] Acct: [id number] Name: SANDRA SRIVASTAVA Rep #: [id number] : 1950 F 74 From: Adalberto Negrete MD PCP: Dr. Christy Rodriguez, DO Status: REG CLI Study: Extremity Lower without Contra Date of Exam: 0 11/06/24 Exam# [id number] Ordering Dr: Toni Ceballos DO PROCEDURE: EXTREMITY LOWER WITHOUT CONTRA 11/06/2024 REASON FOR EXAM: KNEE PAIN TECHNIQUE: EXTREMITY LOWER WITHOUT CONTRA Coronal and Sagittal reconstruction series were provided. CONTRAST: None One or more dose reduction techniques were used (e.g., Automated exposure control, adjustment of the mA and/or kV according to patient size, use of iterative reconstruction technique). 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 There is subcortical cyst formation in the medial and lateral femoral condyle and medial tibial plateau. Marginal osteophytes are present at all articular surfaces. There is a moderate joint effusion. There is no acute fracture or dislocation. Muscular structures appear intact. There is no soft tissue mass or cyst. There is a 2.4 x 1.3 cm enlarged left inguinal lymph node, image 55/89. There is no visible atherosclerosis. Radiopaque sutures are noted in the rectum. 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 There is a 2.4 x 1.3 cm enlarged left inguinal lymph node, image 55/89. Reading Location: [facility] CC: Dr. Christy Rodriguez DO; Dr. Toni Ceballos DO Passenger Brakeman: Signed Normal [facility] Glomerular filtration rate ( GFR) estimation/1.73 sq m using serum, plasma, or whole bOrdered By: Toni Ceballos on 11-06-2024 GFR/1.73 sq M.predicted among non-blacks MDRD (S/P/Bld) [Vol rate/Area] 83 mL/min/{1.73_m2} >60 [facility] Comment on above: mL/min/1.73m2 CKD-EP I Creatinine Equation (2020) Hematocrit Auto (Bld) [Volum e fraction]Ordered By: Toni Ceballos on 11-06-2024 Hematocrit (Bld) [Volume fraction] 39.1 % 37-47 [facility] Hemoglobin measurementOrdere d By: Toni Ceballos on 11-06-2024 Hemoglobin (Bld) [Mass/Vol] 13.2 g/dL 12.0-15.0 [facility] Immature granulocytes/100 WB C Auto (Bld)Ordered By: Toni Ceballos on 11-06-2024 Immature granulocytes/100 WBC (Bld) 0.400 % 0.0-0.9 [facility] Comment on above: IG% - Immature Granu locytes (promyelocytes, myelocytes and metamyelocytes) > 1% indicates that a LEFT SHIFT is Present. International normalized rat io (INR) calculationOrdered By: Norman Acosta on 11-06-2024 INR Coag (Bld) [Relative time] 1.0 {INR} [facility] - Chemistry and C hemistry - challengeOrdered By: Norman Acosta on 11-06-2024 AST [Catalytic activity/Vol] 29 U/L <32 [facility] Liver Profileon 11-06-2024 Albumin [Mass/Vol] 4.4 g/dL Normal 3.4-4.8 [facility] Comment on above: Performed By: #### L 300.4310, L501.5200, L300.3900, L500.3400 #### [facility] [address] [place], [address] ALK PHOS 64 U/L Normal 35-104 [facility] Comment on above: Performed By: #### L 300.4310, L501.5200, L300.3900, L500.3400 #### [facility] [address] [place], [address] ALT [Catalytic activity/Vol] 35 U/L Normal <=34 [facility] Comment on above: Performed By: #### L 300.4310, L501.5200, L300.3900, L500.3400 #### [facility] [address] [place], [address] AST [Catalytic activity/Vol] 29 U/L Normal <=31 [facility] Comment on above: Performed By: #### L 300.4310, L501.5200, L300.3900, L500.3400 #### [facility] [address] [place], [address] Bilirubin [Mass/Vol] 0.32 mg/dL Normal 0.00-1.30 [facility] Comment on above: Performed By: #### L 300.4310, L501.5200, L300.3900, L500.3400 #### [facility] [address] [place], [address] Bilirubin.direct [Mass/Vol] 0.12 mg/dL Normal 0.00-0.30 [facility] Comment on above: Performed By: #### L 300.4310, L501.5200, L300.3900, L500.3400 #### [facility] [address] [place], [address] Globulin (S) [Mass/Vol] 2.7 g/dL Normal 2.2-4.2 [facility] Comment on above: Performed By: #### L 300.4310, L501.5200, L300.3900, L500.3400 #### [facility] [address] [place], [address] T PROT 7.1 g/dL Normal 5.9-8.4 [facility] Comment on above: Performed By: #### L 300.4310, L501.5200, L300.3900, L500.3400 #### [facility] [address] [place], [address] MCV (mean corpuscular volume ) determinationOrdered By: Toni Ceballos on 11-06-2024 MCV (RBC) [Entitic vol] 93.5 fL 81-99 [facility] MRSA screenOrdered By: Win Ceballos on 11-06-2024 MRSA DNA GRACE+probe Ql (Unsp spec) [facility] Magnesiumon 11-06-2024 Magnesium [Mass/Vol] 2.1 mg/dL Normal 1.5-2.2 [facility] Comment on above: Performed By: #### L 300.4310, L501.5200, L300.3900, L500.3400 #### [facility] [address] [place], [address] Magnesium measurement (mass/ volume)Ordered By: Norman Acosta on 11-06-2024 Magnesium (Unsp spec) [Mass/Vol] 2.1 mg/dL 1.5-2.2 [facility] Mean corpuscular hemoglobin (MCH) determinationOrdered By: Toni Ceballos on 11-06-2024 MCH (RBC) [Entitic mass] 31.6 pg 27.0-32.0 [facility] Mean corpuscular hemoglobin concentration (MCHC) determinationOrdered By: Toni Ceballos on 11-06-2024 MCHC (RBC) [Mass/Vol] 33.8 g/dL 32-36 [facility] Mean platelet volume determi nationOrdered By: Toni Ceballos on 11-06-2024 Platelet mean volume (Bld) [Entitic vol] 9.0 fL 6.2-12.0 [facility] Monocyte percentageOrdered B y: Toni Ceballos on 11-06-2024 Monocytes/100 WBC (Bld) 11.8 % High 0-10 [facility] Neutrophil percentageOrdered By: Toni Ceballos on 11-06-2024 Neutrophils/100 WBC (Bld) 57.9 % 47-70 [facility] Nucleated red blood cell per centageOrdered By: Toni Ceballos on 11-06-2024 Nucleated RBC/100 WBC (Bld) [Ratio] 0 % 0-5 [facility] Partial Thromboplast Timeon 11-06-2024 aPTT Coag (Bld) [Time] 25.9 s Normal 24.1-36.2 [facility] Comment on above: Performed By: #### L 300.4310, L501.5200, L300.3900, L500.3400 #### [facility] [address] [place], [address] Platelet countOrdered By: Ruby Ceballos on 11-06-2024 Platelets (Bld) [#/Vol] 241 10*3/uL 150-450 [facility] Potassium measurement (mass/ volume)Ordered By: Toni Ceballos on 11-06-2024 Potassium (Unsp spec) [Mass/Vol] 4.1 mmol/L 3.3-5.1 [facility] Prothrombin Time w/INRon INR Coag (PPP) [Relative time] 1.0 {INR} Normal [facility] Comment on above: Performed By: #### L 300.4310, L501.5200, L300.3900, L500.3400 #### [facility] [address] [place], [address] PT Coag (PPP) [Time] 13.5 s Normal 11.7-14.9 [facility] Comment on above: Performed By: #### L 300.4310, L501.5200, L300.3900, L500.3400 #### [facility] [address] [place], [address] Prothrombin timeOrdered By: Norman Acosta on 11-06-2024 PT Coag (PPP) [Time] 13.5 s 11.7-14.9 [facility] RBC Auto (Bld) [#/Vol]Ordere d By: Toni Ceballos on 11-06-2024 RBC (Bld) [#/Vol] 4.18 10*6/uL Low 4.2-5.4 [facility] Serum creatinine measurement (mass/volume)Ordered By: Toni Ceballos on 11-06-2024 Creatinine [Mass/Vol] 0.76 mg/dL 0.70-1.20 [facility] Serum globulin measurementOr dered By: Norman Acosta on 11-06-2024 Globulin (S) [Mass/Vol] 2.7 g/dL 2.2-4.2 [facility] Serum glucose measurement (m ass/volume)Ordered By: Toni Ceballos on 11-06-2024 Glucose [Mass/Vol] 98 mg/dL 70-99 [facility] Serum or plasma alanine hernandez otransferase (ALT) measurementOrdered By: Norman Acosta on 11-06-2024 ALT [Catalytic activity/Vol] 35 U/L <35 [facility] Serum or plasma albumin erum urement (mass/volume)Ordered By: Norman Acosta on 11-06-2024 Albumin [Mass/Vol] 4.4 g/dL 3.4-4.8 [facility] Serum or plasma alkaline michelle sphatase measurementOrdered By: Norman Acosta on 11-06-2024 ALP [Catalytic activity/Vol] 64 U/L 35-104 [facility] Serum or plasma calcium erum urement (mass/volume)Ordered By: Toni Ceballos on 11-06-2024 Calcium [Mass/Vol] 9.9 mg/dL 7.6-11.0 [facility] Serum or plasma urea nitroge n measurement (mass/volume)Ordered By: Toni Ceballos on 11-06-2024 Urea nitrogen [Mass/Vol] 14 mg/dL 4-19 [facility] Sodium levelOrdered By: Sergio Ceballos on 11-06-2024 Sodium [Moles/Vol] 140 mmol/L 133-145 [facility] Total proteinOrdered By: Reese Acosta on 11-06-2024 Protein [Mass/Vol] 7.1 g/dL 5.9-8.4 [facility] White blood cell (WBC) count Ordered By: Toni Ceballos on 11-06-2024 WBC (Bld) [#/Vol] 7.5 10*3/uL 4.4-11.0 [facility] MRI KNEE W/O CONTRAST RIGHTo n 06-15-2024 MRI KNEE W/O CONTRAST RIGHT ORIGINAL EXAMINATION: MRI OF THE RIGHT KNEE WITHOUT CONTRAST, 06/14/2024 1:12 pm TECHNIQUE: Multiplanar multisequence MRI of the right knee was performed without the administration of intravenous contrast. COMPARISON: None. HISTORY: ORDERING SYSTEM PROVIDED HISTORY: Reason for Exam: PAIN IN RT KNEE, no known injury FINDINGS: MENISCI: Intact lateral meniscus. Complex tear involving posterior body and posterior horn of medial meniscus with mild extrusion. CRUCIATE LIGAMENTS: Increased signal intensity of anterior cruciate ligament suggesting degeneration with maintained continuity. Intact posterior cruciate ligament. EXTENSOR MECHANISM: Intact quadriceps and patellar tendons. Intact patellar retinacula. Mild lateral subluxation of patella with reactive bone marrow edema within lateral aspect of patella. LATERAL COLLATERAL LIGAMENT COMPLEX: Intact IT band, lateral collateral ligament proper, biceps femoris tendon and popliteus tendon. MEDIAL COLLATERAL LIGAMENT COMPLEX: The superficial and deep components of the medial collateral ligament are intact. KNEE JOINT: High-grade articular cartilage loss in patellofemoral joint. High-grade medial tibiofemoral cartilage loss noted. There are focal areas of moderate cards irregularity in the lateral tibiofemoral compartment.. Degenerative changes with marginal osteophytes. Moderate to large knee joint effusion with intra-articular loose bodies. BONE MARROW: No evidence of acute fracture or aggressive marrow replacing lesion. Small Hernández's cyst. IMPRESSION: 1. Complex tear of posterior body and posterior horn of medial meniscus with mild extrusion. 2. Significant multifocal cartilage loss 3. Moderate to large knee joint effusion with intra-articular loose bodies. I have personally reviewed the images of this examination and agree with the resident's findings and interpretation. Interpreted by: Homer Zurita MD Preliminary Report By: Duglas Felder Electronically signed By Homer Zurita MD Dictated Date: 06/15/2024 8:21:17 AM Prelim Date: 06/15/2024 9:32:04 AM Sign Date: 06/15/2024 9:32:04 AM Ordering Provider: TONI Gaston [facility] MAMMOGRAM SCREENING BILAT ERAL W/TOMOon 09-15-2023 [place] MAMMOGRAM SCREENING BILATERAL W/AYAH ORIGINAL FROM: [facility] [address] [place], [place] [address] PROCEDURE FOR: SANDRA SRIVASTAVA [address] [place] [address] Home: PID#: [id number] Exam#: [id number] : 1950 Age: 73 TO: CHRISTY RODRIGUEZ DO [address] [place] [address] EXAMINATION: SCREENING DIGITAL BILATERAL MAMMOGRAM WITH TOMOSYNTHESIS, 09/15/2023 9:42 am TECHNIQUE: Screening mammography of the bilateral breasts was performed with tomosynthesis. 2D standard and 3D tomosynthesis combination imaging performed through both breasts in the MLO and CC projection. Computer aided detection was utilized in the interpretation of this exam. COMPARISON: 06/01/2022 HISTORY: Breast cancer screening. FINDINGS: BREAST DENSITY: Heterogeneously dense There are benign-appearing calcifications in both breasts. No significant masses or calcifications. IMPRESSION: No mammographic evidence of malignancy. Continued screening with annual mammograms is recommended. Jeffrey Rashidck risk calculations, generated with the history provided, report this patient's 10 year risk and lifetime risk for developing breast cancer at 2.4% and 2.9%, respectively. Based on this assessment tool, if the patient's calculated lifetime risk is below 20%, then the patient is considered at average risk for developing breast cancer. If the patient's calculated lifetime risk is at or above 20%, then the patient is considered high risk for developing breast cancer and may be a candidate for supplemental breast MRI screening in addition to annual mammographic screening per the [employer]. I have personally reviewed the images of this examination and agree with the resident's findings and interpretation. BIRADS: MAMMOGRAM BI-RADS: 2: Benign finding RECALL: 1 year screening RECALL TYPE: mammo LETTER SENT: Normal BI-RADS 1 and 2 Interpreted by: Anni Sparks Preliminary Report By: Klaus Lobo Electronically signed By Anni Sparks Dictated Date: 09/15/2023 10:06:07 AM Prelim Date: 09/15/2023 4:29:15 PM Sign Date: 09/15/2023 4:29:15 PM Ordering Provider: CHRISTY RODRIGUEZ Community Engagement Manager: CINTHIA MONIQUE RT(R)(M)(CT) letter sent: Normal BI-RADS 1 and 2 Mammogram BI-RADS: 2 Benign Normal [facility] ([place]) CVFLURVon 06-22-2023 FLU A PCR Negative Normal Negative [facility] ([place] Comment on above: Result [place]: [place] [id number] Performed By: #### C VFLURV #### [facility] [address] [place] [address] FLU B PCR Negative Normal Negative [facility] ([place]) Comment on above: [place]: [place] [id number] Performed By: #### C VFLURV #### [facility] [address] [place] [address] RSV PCR Negative Normal Negative [facility] ([place]) Comment on above: Result [place]: [place] [id number] Performed By: #### C VFLURV #### [facility] [address] [place] [address] SARS-CoV-2 (COVID-19) RNA GRACE+probe Ql (Unsp spec) Negative Normal Negative [facility] ([place]) Comment on above: Result Comment: Note s [id number] This test has been authorized by FDA under an EUA for use by authorized laboratories and has not been FDA cleared or approved. Results from the Xpert Xpress SARS-CoV-2/Flu/RSV or Xpert Xpress SARS-CoV-2 only test should be correlated with the clinical history, epidemiological data, and other data available to the clinician evaluating the patient. Performance of the Xpert Xpress SARS-CoV-2/Flu/RSV or Xpert Xpress SARS-CoV-2 only test has only been established in nasopharyngeal swab specimens. Erroneous test results might occur from improper specimen collection; failure to follow the recommended sample collection, handling, and storage procedures; technical error; or sample mix-up.False negative results may occur if virus is present at levels below the analytical limit of detection. Viral nucleic acid may persist in vivo, independent of virus viability. Detection of analyte target(s) does not imply that the corresponding virus(es) are infectious or are the causative agents for clinical symptoms.Recent patient exposure to FluMist or other live attenuated influenza vaccines may cause inaccurate positive results. Performed By: #### C VFLURV #### [address] [address] XR CHEST 2 VIEWSon 4 XR CHEST 2 VIEWS ORIGINAL EXAMINATION: TWO XRAY VIEWS OF THE CHEST 06/07/2023 11:42 am COMPARISON: 06/24/2022. HISTORY: ORDERING SYSTEM PROVIDED HISTORY: Reason for Exam: exacerbation Asthma, former smoker 35 years ago, hx of skin CA FINDINGS: The lungs are without acute focal process. There is no effusion or pneumothorax. The cardiomediastinal silhouette is without acute process. The osseous structures are without acute process. IMPRESSION: No acute process. Interpreted by: Homer Manuel DO Preliminary Report By: Homer Manuel DO Electronically signed By Homer Manuel DO Dictated Date: 06/07/2023 11:59:23 AM Prelim Date: 06/07/2023 11:59:58 AM Sign Date: 06/07/2023 11:59:58 AM Ordering Provider: CHRISTY RODRIGUEZ [facility] ([place]) XR SPINE LUMBAR AP/LATon XR SPINE LUMBAR AP/LAT ORIGINAL EXAMINATION: XRAY VIEWS OF THE LUMBAR SPINE 06/07/2023 11:44 am COMPARISON: 02/22/2023. HISTORY: ORDERING SYSTEM PROVIDED HISTORY: Reason for Exam: chronic low back pain Fell down steps 3 to 4 months ago. Lower back sensitive to the touch. Hx of skin CA FINDINGS: 5 lumbar type vertebral bodies. Mild levocurvature. Mild grade 1 anterolisthesis of L4 on L5 and retrolisthesis to a mild degree of L2 on L3 and L3 on L4, unchanged from prior. Preserved vertebral body heights. No visible displaced fracture, compression deformity, or destructive osseous lesion. Hwhg-te-tkbvwlzb multilevel disc space narrowing with small endplate osteophytes. However, there is severe L5-S1 disc space narrowing. Advanced lower lumbar facet arthrosis. The included pelvic ring and evaluable sacrum are intact. No significant sacroiliac joint arthrosis. Right upper abdominal quadrant surgical clips. IMPRESSION: 1. No compression deformity. 2. Similar lumbar alignment to prior exam. 3. Similar spondyloarthropathy to prior. Interpreted by: Homer Pandya DO Preliminary Report By: Homer Pandya DO Electronically signed By Homer Pandya DO Dictated Date: 06/07/2023 11:50:23 AM Prelim Date: 06/07/2023 11:52:38 AM Sign Date: 06/07/2023 11:52:38 AM Ordering Provider: CHRISTY Gaston [facility] ([place]) XR SPINE LUMBAR W/OBLIQUES 4 VIEWSon 02-23-2023 XR SPINE LUMBAR W/OBLIQUES 4 VIEWS ORIGINAL EXAMINATION: AP lateral obliques 5 XRAY VIEWS OF THE LUMBAR SPINE02/22/2023 10:11 am COMPARISON: None HISTORY: ORDERING SYSTEM PROVIDED HISTORY: Reason for Exam: Acute right flank pain FINDINGS: There is moderate lumbar levoscoliosis. 5 lumbar-type vertebral bodies show normal height with no acute fracture or compression deformity. There is minimal listhesis at a couple of levels and multilevel gzjo-xx-tmbcyaro disc space narrowing, endplate spurring and severe lower lumbar facet arthropathy. No spondylolysis on the oblique views. Symmetric normal SI joints. No sacral lesion. IMPRESSION: Levoscoliosis and degenerative changes. No acute findings. Interpreted by: Baltazar Cee MD Preliminary Report By: Baltazar Cee MD Electronically signed By Baltazar Cee MD Dictated Date: 02/22/2023 11:59:11 PM Prelim Date: 02/23/2023 12:04:57 AM Sign Date: 02/23/2023 12:04:57 AM Ordering Provider: CHRISTY Gaston [facility] ([place]) .Auto Diffon 02-22-2023 Basophil, Absolute 0.1 10 3/mcL Normal 0.0-0.2 [facility] ([place]) Comment on above: Performed By: #### P RO, CBC, ANEU, ADIFF #### [address] [address] Basophils/100 WBC (Bld) 0.9 % Normal 0.0-2.5 [facility] ([place] Comment on above: Performed By: #### P RO, CBC, ANEU, ADIFF #### [address] [address] Eosinophil, Absolute 0.4 10 3/mcL Normal 0.0-0.4 [facility] ([place]) Comment on above: Performed By: #### P RO, CBC, ANEU, ADIFF #### [address] [address] Eosinophils/100 WBC (Bld) 6.3 % Normal 0.0-7.0 [facility] ([place]) Comment on above: Performed By: #### P RO, CBC, ANEU, ADIFF #### [address] [address] Lymphocyte, Absolute 1.8 10 3/mcL Normal 0.8-3.9 [facility] ([place] Comment on above: Performed By: #### P RO, CBC, ANEU, ADIFF #### [address] [address] Lymphocytes/100 WBC (Bld) 27.5 % Normal 10.0-50.0 [facility] ([place] Comment on above: Performed By: #### P RO, CBC, ANEU, ADIFF #### [address] [address] Monocyte, Absolute 0.7 10 3/mcL Normal 0.2-1.0 [facility] ([place] Comment on above: Performed By: #### P RO, CBC, ANEU, ADIFF #### [address] [address] Monocytes/100 WBC (Bld) 10.8 % Normal 1.7-13.0 [facility] ([place]) Comment on above: Performed By: #### P RO, CBC, ANEU, ADIFF #### [address] [address] Neutrophils/100 WBC (Bld) 54.5 % Normal 37.0-80.0 [facility] ([place]) Comment on above: Performed By: #### P RO, CBC, ANEU, ADIFF #### [address] [address] .NEUABSon 02-22-2023 Neutrophil, Absolute 3.6 10 3/mcL Normal 2.9-6.2 [facility] ([place] Comment on above: Performed By: #### P RO, CBC, ANEU, ADIFF #### [address] [address] APTTon 02-22-2023 aPTT Coag (Bld) [Time] 32.0 s Normal 25.0-35.0 [facility] ([place] Comment on above: Result Comment: For Heparin anticoagulation therapy, the recommended therapeutic range is: 50.6-87.4 seconds. Patients on heparin therapy may have an extreme result. Performed By: #### P RO, CBC, ANEU, ADIFF #### [address] [address] Heparin dose (APTT) Unknown Normal [facility] ([place] Comment on above: Performed By: #### P RO, CBC, ANEU, ADIFF #### [address] [address] CBCon 02-22-2023 Erythrocyte distribution width (RBC) [Ratio] 12.3 % Normal 11.5-14.5 [facility] ([place]) Comment on above: Performed By: #### P RO, CBC, ANEU, ADIFF #### [place] [id number] Hematocrit (Bld) [Volume fraction] 40.8 % Normal 37.0-47.0 [facility] ([place] Comment on above: Performed By: #### P RO, CBC, ANEU, ADIFF #### [place] [id number] Hgb 13.6 G/dL Normal 12.0-16.0 [facility] ([place] Comment on above: Performed By: #### P RO, CBC, ANEU, ADIFF #### [place] [id number] MCH (RBC) [Entitic mass] 32.0 pg High 27.0-31.2 [facility] ([place] Comment on above: Performed By: #### P RO, CBC, ANEU, ADIFF #### [place] [id number] MCHC 33.4 G/dL Normal 33.0-37.0 [facility] ([place] Comment on above: Performed By: #### P RO, CBC, ANEU, ADIFF #### [place] [id number] MCV (RBC) [Entitic vol] 95.7 fL High 80.0-94.0 [facility] [place] Comment on above: Performed By: #### P RO, CBC, ANEU, ADIFF #### [address] [place], [place] [address] Platelet 273 10 3/mcL Normal 130-400 [facility] ([place]) Comment on above: Performed By: #### P RO, CBC, ANEU, ADIFF #### [place] [address] [place], [place] [address] Platelet mean volume (Bld) [Entitic vol] 7.3 fL Low 7.4-10.4 [facility] ([place]) Comment on above: Performed By: #### P RO, CBC, ANEU, ADIFF #### [address] [address] RBC 4.27 10 6/mcL Normal 4.20-5.40 [facility] ([place]) Comment on above: Performed By: #### P RO, CBC, ANEU, ADIFF #### [address] [address] WBC 6.7 10 3/mcL Normal 4.6-10.8 [facility] ([place]) Comment on above: Performed By: #### P RO, CBC, ANEU, ADIFF #### [address] [address] LABORATORYOrdered By: My Veliz on 02-22-2023 aPTT Coag (PPP) [Time] 32.0 s Normal 25.0 - 35.0 seconds AO HemoHub SS Comment on above: Interpretive Data: F or Heparin anticoagulation therapy, the recommended therapeutic range is: 50.6-87.4 seconds. Patients on heparin therapy may have an extreme result. Heparin dose (APTT) Unknown (02/22/23 10:20 AM) Normal AO Coagulation S INR Coag (PPP) [Relative time] 1.0 {INR} Invalid Interpretation Code AO HemoHub SS Comment on above: Interpretive Data: Myriam llamas [employer] (CHEST, 1992, 102:[id number]) recommended therapeutic range for oral anticoagulant therapy is: LOW RISK: Prophylaxis of venous thrombosis INR: 2.0-3.0 Treatment of pulmonary embolism 2.0-3.0 Prevention of systemic embolism 2.0-3.0 HIGH RISK: Mechanical prosthetic valves 2.5-3.5 PT Coag (PPP) [Time] 11.6 s Normal 9.0 - 1 4.2 seconds AO HemoHub SS LABORATORYOrdered By: SYSTEM SYSTEM on 02-22-2023 Basophil, Absolute 0.1 103/mcL Normal 0.0 - 0.2 10^3/mcL AO Workflow SS Basophils/100 WBC (Bld) 0.9 % Normal 0.0 - 2.5 % AO Workflow SS Eosinophil, Absolute 0.4 103/mcL Normal 0.0 - 0 .4 10^3/mcL AO Workflow SS Eosinophils/100 WBC (Bld) 6.3 % Normal 0.0 - 7.0 % AO Workflow SS Erythrocyte distribution width (RBC) [Ratio] 12.3 % Normal 11.5 - 14.5 % AO Workflow SS Hematocrit (Bld) [Volume fraction] 40.8 % Normal 37.0 - 47.0 % AO Workflow SS Hemoglobin (Bld) [Mass/Vol] 13.6 G/dL Normal 12.0 - 16.0 G/dL AO Workflow SS Lymphocyte, Absolute 1.8 103/mcL Normal 0.8 - 3 .9 10^3/mcL AO Workflow SS Lymphocytes/100 WBC (Bld) 27.5 % Normal 10.0 - 50.0 % AO Workflow SS MCH (RBC) [Entitic mass] 32.0 pg High 27.0 - 31.2 pg AO Workflow SS MCHC 33.4 G/dL Normal 33.0 - 37.0 G/dL AO Workflow SS MCV (RBC) [Entitic vol] 95.7 fL High 80.0 - 94.0 fL AO Workflow SS Monocyte, Absolute 0.7 103/mcL Normal 0.2 - 1.0 10^3/mcL AO Workflow SS Monocytes/100 WBC (Bld) 10.8 % Normal 1.7 - 13.0 % AO Workflow SS Neutrophil, Absolute 3.6 103/mcL Normal 2.9 - 6 .2 10^3/mcL AO Workflow SS Neutrophils/100 WBC (Bld) 54.5 % Normal 37.0 - 80.0 % AO Workflow SS Platelet mean volume (Bld) [Entitic vol] 7.3 fL Low 7.4 - 10.4 fL AO Workflow SS Platelets (Bld) [#/Vol] 273 103/mcL Normal 130 - 400 10^3/mcL AO Workflow SS RBC (Bld) [#/Vol] 4.27 106/mcL Normal 4.20 - 5.4 0 10^6/mcL AO Workflow SS WBC (Bld) [#/Vol] 6.7 103/mcL Normal 4.6 - 10.8 10^3/mcL AO Workflow SS PROon 02-22-2023 PT Coag (PPP) [Time] 11.6 s Normal 9.0-14.2 [facility] ([place]) Comment on above: Performed By: #### P RO, CBC, ANEU, ADIFF #### [facility] [address], [place] [address] PT International Ratio 1.0 Normal [facility] ([place]) Comment on above: Result Comment: [employer] (CHEST, 1992, 102:[id number]) recommended therapeutic range for oral anticoagulant therapy is: LOW RISK: Prophylaxis of venous thrombosis INR: 2.0-3.0 Treatment of pulmonary embolism 2.0-3.0 Prevention of systemic embolism 2.0-3.0 HIGH RISK: Mechanical prosthetic valves 2.5-3.5 Performed By: #### P RO, CBC, ANEU, ADIFF #### [address] [place], [place] [address] US ABDOMEN COMPLETEon 2022 US ABDOMEN COMPLETE ORIGINAL HISTORY: Right flank pain COMPARISON: 11 November 2019 TECHNIQUE: The following organs are evaluated: Liver, pancreas, spleen, gallbladder, biliary system and kidneys. FINDINGS: The liver is mildly hyperechoic and heterogeneous in echogenicity. There is a 12 mm hepatic cyst. There is cholelithiasis. There is no sonographic Garcia's sign. The common bile duct is within normal limits at 9 mm in diameter. There are a few small echogenic foci in the spleen, up to 15 mm in maximum diameter; the spleen is otherwise unremarkable in appearance. Other than a 3.8 cm right renal cysts, the kidneys are unremarkable in appearance. The pancreas is unremarkable as well. Bladder is normal in appearance. The aorta and inferior vena cava are unremarkable in appearance. There is no free fluid. IMPRESSION: Hepatocellular disease, most likely fatty infiltration. Post cholecystectomy. Other than a right renal cyst, unremarkable examination of the kidneys. Echogenic foci in the spleen, of unlikely significance. Interpreted by: Seema Corbin MD Preliminary Report By: Seema Corbin MD Electronically signed By Seema Corbin MD Dictated Date: 02/22/2023 10:54:27 AM Prelim Date: 02/22/2023 10:58:57 AM Sign Date: 02/22/2023 10:58:57 AM Ordering Provider: CHRISTY RODRIGUEZ [facility] ([place]) XR SPINE THORACIC 2 VIEWSon 02-22-2023 XR SPINE THORACIC 2 VIEWS ORIGINAL EXAMINATION: TWO XRAY VIEWS OF THE THORACIC SPINE02/22/2023 10:09 am COMPARISON: None HISTORY: ORDERING SYSTEM PROVIDED HISTORY: Reason for Exam: Acute right flank pain FINDINGS: Thoracic vertebral body height and alignment is within normal limits with no obvious acute fracture, compression deformity or aggressive bone lesion. Multilevel disc space narrowing and large endplate spurs. Normal paraspinal soft tissues. Cervical spine degenerative changes incompletely evaluated. IMPRESSION: Moderate degenerative changes. No acute findings. Interpreted by: Baltazar Cee MD Preliminary Report By: Baltazar Cee MD Electronically signed By Baltazar Cee MD Dictated Date: 02/22/2023 11:58:22 PM Prelim Date: 02/22/2023 11:59:07 PM Sign Date: 02/22/2023 11:59:07 PM Ordering Provider: CHRISTY RODRIGUEZ [facility] ([place]) LABORATORYOrdered By: Paul Crook on 06-24-2022 Basophil, Absolute 0.0 103/mcL Invalid Interpretation Code 0.0 - 0.2 10^3/mcL AO Workflow SS Basophils/100 WBC (Bld) 0.5 % Invalid Interpretation Code 0.0 - 2.5 % AO Workflow SS Eosinophil, Absolute 0.0 103/mcL Invalid Interpretation Code 0.0 - 0.4 10^3/mcL AO Workflow SS Eosinophils/100 WBC (Bld) 0.6 % Invalid Interpretation Code 0.0 - 7.0 % AO Workflow SS Erythrocyte distribution width (RBC) [Ratio] 12.5 % Invalid Interpretation Code 11.5 - 14.5 % AO Workflow SS Hematocrit (Bld) [Volume fraction] 34.9 % Invalid Interpretation Code 37.0 - 47.0 % AO Workflow SS Hemoglobin (Bld) [Mass/Vol] 12.0 G/dL Invalid Interpretation Code 12.0 - 16.0 G/dL AO Workflow SS Lymphocyte, Absolute 1.6 103/mcL Invalid Interpretation Code 0.8 - 3.9 10^3/mcL AO Workflow SS Lymphocytes/100 WBC (Bld) 24.7 % Invalid Interpretation Code 10.0 - 50.0 % AO Workflow SS MCH (RBC) [Entitic mass] 32.2 pg Invalid Interpretation Code 27.0 - 31.2 pg AO Workflow SS MCHC 34.6 G/dL Invalid Interpretation Code 33.0 - 37.0 G/dL AO Workflow SS MCV (RBC) [Entitic vol] 93.0 fL Invalid Interpretation Code 80.0 - 94.0 fL AO Workflow SS Monocyte, Absolute 1.1 103/mcL Invalid Interpretation Code 0.2 - 1.0 10^3/mcL AO Workflow SS Monocytes/100 WBC (Bld) 17.8 % Invalid Interpretation Code 1.7 - 13.0 % AO Workflow SS Neutrophil, Absolute 3.7 103/mcL Invalid Interpretation Code 2.9 - 6.2 10^3/mcL AO Workflow SS Neutrophils/100 WBC (Bld) 56.1 % Invalid Interpretation Code 37.0 - 80.0 % AO Workflow SS Platelet mean volume (Bld) [Entitic vol] 7.4 fL Invalid Interpretation Code 7.4 - 10.4 fL AO Workflow SS Platelets (Bld) [#/Vol] 239 103/mcL Invalid Interpretation Code 130 - 400 10^3/mcL AO Workflow SS RBC (Bld) [#/Vol] 3.75 106/mcL Invalid Interpretation Code 4.20 - 5.40 10^6/mcL AO Workflow SS WBC (Bld) [#/Vol] 6.6 103/mcL Invalid Interpretation Code 4.6 - 10.8 10^3/mcL AO Workflow SS LABORATORYOrdered By: SYSTEM SYSTEM on 06-24-2022 Calcium [Mass/Vol] 8.9 mg/dL Invalid Interpretation Code 8.4 - 10.2 mg/dL AO ADM SS Chloride [Moles/Vol] 103 mmol/L Invalid Interpretation Code 98 - 107 mmol/L AO ADM SS CO2 [Moles/Vol] 31 mmol/L Invalid Interpretation Code 23 - 31 mmol/L AO ADM SS Creatinine [Mass/Vol] 0.77 mg/dL Invalid Interpretation Code 0.55 - 1.02 mg/dL AO ADM SS Electrolyte Balance 7.0 mEq/L Invalid Interpretation Code 4.0 - 15.0 mEq/L AO ADM SS GFR 89 ml/min/1.73sqm Invalid Interpretation Code AO Chemistry S GFR Non- 74 ml/min/1.73sqm Invalid Interpretation Code AO Chemistry S Glucose [Mass/Vol] 96 mg/dL Invalid Interpretation Code 83 - 110 mg/dL AO ADM SS Magnesium [Mass/Vol] 2.3 mg/dL Invalid Interpretation Code 1.8 - 2.4 mg/dL AO ADM SS Potassium [Moles/Vol] 4.0 mmol/L Invalid Interpretation Code 3.5 - 5.1 mmol/L AO ADM SS Sodium [Moles/Vol] 141 mmol/L Invalid Interpretation Code 136 - 145 mmol/L AO ADM SS Urea nitrogen [Mass/Vol] 15 mg/dL Invalid Interpretation Code 7 - 18 mg/dL AO ADM SS Urea nitrogen/Creatinine [Mass ratio] 19 ratio Invalid Interpretation Code 7 - 27 ratio AO ADM SS LABORATORYOrdered By: Funmilayo Tran on 06-23-2022 Basophil, Absolute 0.0 103/mcL Invalid Interpretation Code 0.0 - 0.2 10^3/mcL AO Workflow SS Basophils/100 WBC (Bld) 0.2 % Invalid Interpretation Code 0.0 - 2.5 % AO Workflow SS Eosinophil, Absolute 0.0 103/mcL Invalid Interpretation Code 0.0 - 0.4 10^3/mcL AO Workflow SS Eosinophils/100 WBC (Bld) 0.5 % Invalid Interpretation Code 0.0 - 7.0 % AO Workflow SS Erythrocyte distribution width (RBC) [Ratio] 12.7 % Invalid Interpretation Code 11.5 - 14.5 % AO Workflow SS Hematocrit (Bld) [Volume fraction] 33.6 % Invalid Interpretation Code 37.0 - 47.0 % AO Workflow SS Hemoglobin (Bld) [Mass/Vol] 11.5 G/dL Invalid Interpretation Code 12.0 - 16.0 G/dL AO Workflow SS Lymphocyte, Absolute 0.9 103/mcL Invalid Interpretation Code 0.8 - 3.9 10^3/mcL AO Workflow SS Lymphocytes/100 WBC (Bld) 13.3 % Invalid Interpretation Code 10.0 - 50.0 % AO Workflow SS MCH (RBC) [Entitic mass] 31.5 pg Invalid Interpretation Code 27.0 - 31.2 pg AO Workflow SS MCHC 34.3 G/dL Invalid Interpretation Code 33.0 - 37.0 G/dL AO Workflow SS MCV (RBC) [Entitic vol] 91.9 fL Invalid Interpretation Code 80.0 - 94.0 fL AO Workflow SS Monocyte, Absolute 0.8 103/mcL Invalid Interpretation Code 0.2 - 1.0 10^3/mcL AO Workflow SS Monocytes/100 WBC (Bld) 11.8 % Invalid Interpretation Code 1.7 - 13.0 % AO Workflow SS Neutrophil, Absolute 5.2 103/mcL Invalid Interpretation Code 2.9 - 6.2 10^3/mcL AO Workflow SS Neutrophils/100 WBC (Bld) 74.2 % Invalid Interpretation Code 37.0 - 80.0 % AO Workflow SS Platelet mean volume (Bld) [Entitic vol] 7.1 fL Invalid Interpretation Code 7.4 - 10.4 fL AO Workflow SS Platelets (Bld) [#/Vol] 213 103/mcL Invalid Interpretation Code 130 - 400 10^3/mcL AO Workflow SS RBC (Bld) [#/Vol] 3.66 106/mcL Invalid Interpretation Code 4.20 - 5.40 10^6/mcL AO Workflow SS WBC (Bld) [#/Vol] 7.0 103/mcL Invalid Interpretation Code 4.6 - 10.8 10^3/mcL AO Workflow SS LABORATORYOrdered By: SYSTEM SYSTEM on 06-23-2022 Calcium [Mass/Vol] 9.2 mg/dL Invalid Interpretation Code 8.4 - 10.2 mg/dL AO ADM SS Chloride [Moles/Vol] 102 mmol/L Invalid Interpretation Code 98 - 107 mmol/L AO ADM SS CO2 [Moles/Vol] 31 mmol/L Invalid Interpretation Code 23 - 31 mmol/L AO ADM SS Creatinine [Mass/Vol] 0.70 mg/dL Invalid Interpretation Code 0.55 - 1.02 mg/dL AO ADM SS Electrolyte Balance 8.0 mEq/L Invalid Interpretation Code 4.0 - 15.0 mEq/L AO ADM SS GFR 100 ml/min/1.73sqm Invalid Interpretation Code AO Chemistry S GFR Non- 82 ml/min/1.73sqm Invalid Interpretation Code AO Chemistry S Glucose [Mass/Vol] 124 mg/dL Invalid Interpretation Code 83 - 110 mg/dL AO ADM SS Magnesium [Mass/Vol] 2.4 mg/dL Invalid Interpretation Code 1.8 - 2.4 mg/dL AO ADM SS Potassium [Moles/Vol] 4.4 mmol/L Invalid Interpretation Code 3.5 - 5.1 mmol/L AO ADM SS Sodium [Moles/Vol] 141 mmol/L Invalid Interpretation Code 136 - 145 mmol/L AO ADM SS Urea nitrogen [Mass/Vol] 15 mg/dL Invalid Interpretation Code 7 - 18 mg/dL AO ADM SS Urea nitrogen/Creatinine [Mass ratio] 21 ratio Invalid Interpretation Code 7 - 27 ratio AO ADM SS LABORATORYOrdered By: SYSTEM SYSTEM on 06-22-2022 Albumin BCP dye [Mass/Vol] 2.9 G/dL Invalid Interpretation Code 3.4 - 4.8 G/dL AO ADM SS Albumin/Globulin [Mass ratio] 0.8 {ratio} Invalid Interpretation Code 1.1 - 2.5 ratio AO ADM SS ALP [Catalytic activity/Vol] 56 U/L Invalid Interpretation Code 40 - 135 U/L AO ADM SS ALT With P-5'-P [Catalytic activity/Vol] 30 U/L Invalid Interpretation Code 14 - 59 U/L AO ADM SS AST With P-5'-P [Catalytic activity/Vol] 27 U/L Invalid Interpretation Code 10 - 40 U/L AO ADM SS Bilirubin [Mass/Vol] 0.4 mg/dL Invalid Interpretation Code 0.2 - 1.0 mg/dL AO ADM SS Calcium [Mass/Vol] 8.2 mg/dL Invalid Interpretation Code 8.4 - 10.2 mg/dL AO ADM SS Chloride [Moles/Vol] 98 mmol/L Invalid Interpretation Code 98 - 107 mmol/L AO ADM SS CO2 [Moles/Vol] 26 mmol/L Invalid Interpretation Code 23 - 31 mmol/L AO ADM SS Creatinine [Mass/Vol] 0.72 mg/dL Invalid Interpretation Code 0.55 - 1.02 mg/dL AO ADM SS Electrolyte Balance 8.0 mEq/L Invalid Interpretation Code 4.0 - 15.0 mEq/L AO ADM SS GFR 96 ml/min/1.73sqm Invalid Interpretation Code AO Chemistry S GFR Non- 80 ml/min/1.73sqm Invalid Interpretation Code AO Chemistry S Globulin 3.5 G/dL Invalid Interpretation Code AO ADM SS Glucose [Mass/Vol] 122 mg/dL Invalid Interpretation Code 83 - 110 mg/dL AO ADM SS Lactate [Moles/Vol] 0.8 mmol/L Invalid Interpretation Code 0.4 - 2.0 mmol/L AO ADM SS Magnesium [Mass/Vol] 2.2 mg/dL Invalid Interpretation Code 1.8 - 2.4 mg/dL AO ADM SS Potassium [Moles/Vol] 3.4 mmol/L Invalid Interpretation Code 3.5 - 5.1 mmol/L AO ADM SS Protein [Mass/Vol] 6.4 G/dL Invalid Interpretation Code 6.4 - 8.2 G/dL AO ADM SS Sodium [Moles/Vol] 132 mmol/L Invalid Interpretation Code 136 - 145 mmol/L AO ADM SS Troponin I.cardiac DL <= 0.01 ng/mL [Mass/Vol] 33.1 ng/L Invalid Interpretation Code 0.0 - 51.4 ng/L AO ADM SS Urea nitrogen [Mass/Vol] 8 mg/dL Invalid Interpretation Code 7 - 18 mg/dL AO ADM SS Urea nitrogen/Creatinine [Mass ratio] 11 ratio Invalid Interpretation Code 7 - 27 ratio AO ADM SS LABORATORYOrdered By: Paul Crook on 06-22-2022 Basophil, Absolute 0.0 103/mcL Invalid Interpretation Code 0.0 - 0.2 10^3/mcL AO Workflow SS Basophils/100 WBC (Bld) 0.3 % Invalid Interpretation Code 0.0 - 2.5 % AO Workflow SS Eosinophil, Absolute 0.0 103/mcL Invalid Interpretation Code 0.0 - 0.4 10^3/mcL AO Workflow SS Eosinophils/100 WBC (Bld) 0.2 % Invalid Interpretation Code 0.0 - 7.0 % AO Workflow SS Erythrocyte distribution width (RBC) [Ratio] 12.4 % Invalid Interpretation Code 11.5 - 14.5 % AO Workflow SS Fibrin D-dimer DDU (PPP) [Mass/Vol] 2019 ng/mL D-DU Invalid Interpretation Code 0 - 230 ng/mL D-DU AO [facility] SS Hematocrit (Bld) [Volume fraction] 35.1 % Invalid Interpretation Code 37.0 - 47.0 % AO Workflow SS Hemoglobin (Bld) [Mass/Vol] 11.9 G/dL Invalid Interpretation Code 12.0 - 16.0 G/dL AO Workflow SS Lymphocyte, Absolute 0.4 103/mcL Invalid Interpretation Code 0.8 - 3.9 10^3/mcL AO Workflow SS Lymphocytes/100 WBC (Bld) 5.2 % Invalid Interpretation Code 10.0 - 50.0 % AO Workflow SS MCH (RBC) [Entitic mass] 31.0 pg Invalid Interpretation Code 27.0 - 31.2 pg AO Workflow SS MCHC 34.0 G/dL Invalid Interpretation Code 33.0 - 37.0 G/dL AO Workflow SS MCV (RBC) [Entitic vol] 91.1 fL Invalid Interpretation Code 80.0 - 94.0 fL AO Workflow SS Monocyte, Absolute 1.0 103/mcL Invalid Interpretation Code 0.2 - 1.0 10^3/mcL AO Workflow SS Monocytes/100 WBC (Bld) 11.2 % Invalid Interpretation Code 1.7 - 13.0 % AO Workflow SS Neutrophil, Absolute 7.2 103/mcL Invalid Interpretation Code 2.9 - 6.2 10^3/mcL AO Workflow SS Neutrophils/100 WBC (Bld) 83.1 % Invalid Interpretation Code 37.0 - 80.0 % AO Workflow SS Platelet mean volume (Bld) [Entitic vol] 6.9 fL Invalid Interpretation Code 7.4 - 10.4 fL AO Workflow SS Platelets (Bld) [#/Vol] 197 103/mcL Invalid Interpretation Code 130 - 400 10^3/mcL AO Workflow SS RBC (Bld) [#/Vol] 3.85 106/mcL Invalid Interpretation Code 4.20 - 5.40 10^6/mcL AO Workflow SS WBC (Bld) [#/Vol] 8.6 103/mcL Invalid Interpretation Code 4.6 - 10.8 10^3/mcL AO Workflow SS No Panel Informationon 06-22 Legionella Urine Ag Presumptive negative for L. pneumophila serogroup 1 antigen in urine, suggesting no recent or current infection. Legionnaire's disease cannot be ruled out since other serogroups and species may also cause disease. [facility] Streptococcus Pneumoniae Urine Antig Presumptive negative for pneumococcal pneumonia, suggesting no current or recent pneumococcal infection. Infection due to Strep pneumoniae cannot be ruled out since the antigen present in the sample may be below the detection limit of the test. [facility] Comment on above: This test has not be en evaluated on patients taking antibiotics for greater than 24 hours or on patients who have recently completed an antibiotic regimen. The accuracy of this test has not been proven in young children. LABORATORYOrdered By: Ynes Olea on 06-21-2022 Base excess Calc (Bld) [Moles/Vol] 0.0 mmol/L Invalid Interpretation Code -2.4 - 2.3 mmol/L AO Blood Gas SS CO2 (Bld) [Partial pressure] 35.7 mm[Hg] Invalid Interpretation Code 35.0 - 45.0 mm Hg AO Blood Gas SS CO2 [Moles/Vol] 25 mmol/L Invalid Interpretation Code 19 - 24 mmol/L AO Blood Gas SS HCO3 (Bld) [Moles/Vol] 23.9 mmol/L Invalid Interpretation Code 22.0 - 26.0 mmol/L AO Blood Gas SS Oxygen (Bld) [Partial pressure] 69.0 mm[Hg] Invalid Interpretation Code 80.0 - 100.0 mm Hg AO Blood Gas SS pH (Bld) 7.43 [pH] Invalid Interpretation Code 7.35 - 7.45 AO Blood Gas SS LABORATORYOrdered By: Ayesha collins on 06-21-2022 Adenovirus DNA GRACE+non-probe Ql (Nph) Not Detected *NA* (06/21/22 2:45 AM) Invalid Interpretation Code Not Detected AH Auto Viro/Sero SS B. parapertussis [id number] DNA GRACE+non-probe Ql (Nph) Not Detected *NA* (06/21/22 2:45 AM) Invalid Interpretation Code Not Detected AH Auto Viro/Sero SS B. pertussis toxin promoter region GRACE+non-probe Ql (Nph) Not Detected *NA* (06/21/22 2:45 AM) Invalid Interpretation Code Not Detected AH Auto Viro/Sero SS C. pneumoniae DNA GRACE+non-probe Ql (Nph) Not Detected *NA* (06/21/22 2:45 AM) Invalid Interpretation Code Not Detected AH Auto Viro/Sero SS FLUAV RNA GRACE+non-probe Ql (Nph) Not Detected *NA* (06/21/22 2:45 AM) Invalid Interpretation Code Not Detected AH Auto Viro/Sero SS FLUBV RNA GRACE+non-probe Ql (Nph) Not Detected *NA* (06/21/22 2:45 AM) Invalid Interpretation Code Not Detected AH Auto Viro/Sero SS hMPV RNA GRACE+non-probe Ql (Nph) Detected *ABN* (06/21/22 2:45 AM) Invalid Interpretation Code Not Detected AH Auto Viro/Sero SS M. pneumoniae DNA GRACE+non-probe Ql (Nph) Not Detected *NA* (06/21/22 2:45 AM) Invalid Interpretation Code Not Detected AH Auto Viro/Sero SS Parainfluenza virus 1 RNA GRACE+non-probe Ql (Nph) Not Detected *NA* (06/21/22 2:45 AM) Invalid Interpretation Code Not Detected AH Auto Viro/Sero SS Parainfluenza virus 2 RNA GRACE+non-probe Ql (Nph) Not Detected *NA* (06/21/22 2:45 AM) Invalid Interpretation Code Not Detected AH Auto Viro/Sero SS Parainfluenza virus 3 RNA GRACE+non-probe Ql (Nph) Not Detected *NA* (06/21/22 2:45 AM) Invalid Interpretation Code Not Detected AH Auto Viro/Sero SS Parainfluenza virus 4 RNA GRACE+non-probe Ql (Nph) Not Detected *NA* (06/21/22 2:45 AM) Invalid Interpretation Code Not Detected AH Auto Viro/Sero SS Rhinovirus+Enterovirus RNA GRACE+non-probe Ql (Nph) Not Detected *NA* (06/21/22 2:45 AM) Invalid Interpretation Code Not Detected AH Auto Viro/Sero SS RSV RNA GRACE+non-probe Ql (Nph) Not Detected *NA* (06/21/22 2:45 AM) Invalid Interpretation Code Not Detected AH Auto Viro/Sero SS SARS-CoV-2 (COVID-19) RNA GRACE+probe Ql (Resp) Not Detected *NA* (06/21/22 2:45 AM) Invalid Interpretation Code Not Detected AH Auto Viro/Sero SS LABORATORYOrdered By: SYSTEM SYSTEM on 2022 Troponin I.cardiac DL <= 0.01 ng/mL [Mass/Vol] 8.9 ng/L Invalid Interpretation Code 0.0 - 51.4 ng/L AO ADM SS Albumin BCP dye [Mass/Vol] 3.7 G/dL Invalid Interpretation Code 3.4 - 4.8 G/dL AO ADM SS Albumin/Globulin [Mass ratio] 1.0 {ratio} Invalid Interpretation Code 1.1 - 2.5 ratio AO ADM SS ALP [Catalytic activity/Vol] 68 U/L Invalid Interpretation Code 40 - 135 U/L AO ADM SS ALT With P-5'-P [Catalytic activity/Vol] 31 U/L Invalid Interpretation Code 14 - 59 U/L AO ADM SS AST With P-5'-P [Catalytic activity/Vol] 21 U/L Invalid Interpretation Code 10 - 40 U/L AO ADM SS Bilirubin [Mass/Vol] 0.6 mg/dL Invalid Interpretation Code 0.2 - 1.0 mg/dL AO ADM SS Globulin 3.8 G/dL Invalid Interpretation Code AO ADM SS Lactate [Moles/Vol] 1.3 mmol/L Invalid Interpretation Code 0.4 - 2.0 mmol/L AO ADM SS Protein [Mass/Vol] 7.5 G/dL Invalid Interpretation Code 6.4 - 8.2 G/dL AO ADM SS LABORATORYOrdered By: Funmilayo Tran on 2022 Appearance (U) Clear (06/20/22 5:42 PM) Invalid Interpretation Code Clear AO Auto Urine SS Bilirubin Ql (U) Negative (06/20/22 5:42 PM) Invalid Interpretation Code Negative AO Auto Urine SS Color (U) Yellow (06/20/22 5:42 PM) Invalid Interpretation Code AO Auto Urine SS Glucose Test strip (U) [Mass/Vol] Negative Invalid Interpretation Code Negativemg/ dL AO Auto Urine SS Hemoglobin Auto test strip (U) [Mass/Vol] Large *ABN* (06/20/22 5:42 PM) Invalid Interpretation Code Negative AO Auto Urine SS INR Coag (PPP) [Relative time] 1.4 {INR} Invalid Interpretation Code AO HemoHub SS Ketones Ql (U) Negative Invalid Interpretation Code Negativemg/ dL AO Auto Urine SS Monocyte distribution width Auto (Bld) [Entitic vol] 24.80 Invalid Interpretation Code 0.00 - 20.00 AO Workflow SS Comment on above: Result Comment: For adults in ED, MDW>20.0 may be associated with a higher risk of sepsis during the first 12hrs of hospital admission PT Coag (PPP) [Time] 15.8 s Invalid Interpretation Code 9.1 - 14.2 seconds AO HemoHub SS UA Leuk Est Negative (06/20/22 5:42 PM) Invalid Interpretation Code Negative AO Auto Urine SS UA Mucous Trace /HPF Invalid Interpretation Code AO Auto Urine SS UA Nitrite Negative (06/20/22 5:42 PM) Invalid Interpretation Code Negative AO Auto Urine SS UA pH 5.5 (06/20/22 5:42 PM) Invalid Interpretation Code 5.0 - 8.0 AO Auto Urine SS UA Protein 100 mg/dL Invalid Interpretation Code Negativemg/ dL AO Auto Urine SS UA RBC 0-5 /HPF Invalid Interpretation Code None Seen/HPF AO Auto Urine SS UA Spec Grav >=1.030 *ABN* (06/20/22 5:42 PM) Invalid Interpretation Code 1.015-1.025 AO Auto Urine SS UA Specimen Type Clean Catch (06/20/22 5:42 PM) Invalid Interpretation Code AO Auto Urine SS UA Squam Epithelial 0-5 /HPF Invalid Interpretation Code None Seen/HPF AO Auto Urine SS UA Urobilinogen 0.2 E.U./dL Invalid Interpretation Code 0.2-1.0E.U. /dL AO Auto Urine SS WBC LM.HPF (Urine sed) [#/Area] 0-5 /HPF Invalid Interpretation Code None Seen/HPF AO Auto Urine SS LABORATORYOrdered By: Ynes Olea on 2022 FLUAV RNA GRCAE+probe Ql (Upper resp) Negative (06/20/22 5:42 PM) Invalid Interpretation Code Negative AO Auto Urine SS FLUBV RNA GRACE+probe Ql (Upper resp) Negative (06/20/22 5:42 PM) Invalid Interpretation Code Negative AO Auto Urine SS RSV RNA GRACE+probe Ql (Upper resp) Negative (06/20/22 5:42 PM) Invalid Interpretation Code Negative AO Auto Urine SS SARS-CoV-2 (COVID-19) RNA GRACE+probe Ql (Resp) Negative results do not preclude SARS-CoV-2 infection and should not be used as the sole basis for patient management decisions. Negative results must be combined with clinical observations, patient history, and epidemiological information.There is a risk of false negative values resulting from improperly collected, transported, or handled specimens.There is a risk of false negative values due to the presence of sequence variants in the pathogen targets of the assay, procedural errors, amplification inhibitors in specimens, or inadequate numbers of organisms for amplification.[facility]ANENE SARS-CoV-2 Assay is a Real-Time reverse-transcriptase polymerase chain reaction (RT-PCR) based qualitative in vitro diagnostic test intended for the qualitative detection of nucleic acid from the SARS-CoV-2 in nasopharyngeal swab specimens collected from individuals suspected of COVID-19 by their healthcare provider. Testing is limited to laboratories certified under the Clinical Laboratory Improvement Amendments of 1988 (CLIA), 42 U.S.C. 263a, to perform moderate and high complexity tests. Invalid Interpretation Code AO Auto Urine SS No Panel Informationon 06-20 Culture Urine No growth at 48 hours. [facility] Microscopic examination of blood, culture Culture has been received in lab and is no growth to date. Routine cultures are held for 5 days. [facility] MG Breast Tomosynthesis Scr Blon 05-23-2021 MG Breast Tomosynthesis Scr Bl Patient Name: SANDRA SRIVASTAVA Mammography ACCESSION EXAM DATE/TIME PROCEDURE ORDERING PROVIDER [id number] 05/23/2021 14:36 EST MG Breast Tomosynthesis DO RODRIGUEZ KERRIE LYNN BI Scr CPT code 69438 [id number] Reason For Exam (MG Breast Tomosynthesis BI Scr) routine Report TIME SINCE LAST MAMMOGRAM: Last mammogram was performed 1 year and 2 months ago. REASON FOR EXAM: screening, asymptomatic. PROCEDURE: MG BREAST TOMOSYNTHESIS BL SCR: MAY 23, 2021 - 2D/3D Procedure 3D Bilateral CC and MLO view(s) were taken. 2D Bilateral CC and MLO view(s) were taken. Prior study comparison: March 29, 2020, bilateral MG breast tomosynthesis bl scr performed at [facility]. January 16, 2019, bilateral MG breast tomosynthesis bl scr performed at [facility]. January 03, 2018, bilateral MG breast tomosynthesis bl scr performed at [facility]. TISSUE DENSITY: BIRADS C - The breast tissue is heterogeneously dense, which could obscure underlying abnormalities. . PATIENT CANCER HISTORY: Self Skin Cancer (Non-Melanoma) age 63 FAMILY CANCER HISTORY: Sister Breast Cancer age 52 Brother Prostate Cancer age 68 FINDINGS: No suspicious masses, architectural distortions or suspiciously clustered microcalcifications are identified. There is no evidence of skin thickening or nipple retraction. Benign bilateral breast calcifications are seen. There are no significant changes when compared with prior studies. No mammographic evidence of malignancy. Markings on images: BB's = Nipples; skin lesions Open nunam iqua = Palpable Mammography Report Line = Scar 2D digital mammography and tomosynthesis imaging were performed and reviewed with CAD. ASSESSMENT: Category 2 Benign RECOMMENDATION: Routine screening mammogram of both breasts in 1 year. . Report Dictated on Cancer Risk Assessment: This risk assessment is based on patient provided information collected in a risk survey taken at the time of this examination. Lifetime breast cancer risk: Average Risk - If greater than or equal to 20%, consider annual mammogram and annual screening Breast MRI or follow up in high risk clinic. A score of Average Risk indicates a score of less than 20%. Is the patient at elevated risk based on the HBOC criteria? No (Hereditary Breast and Ovarian Cancer) - If yes, consider genetic counseling and testing with high risk follow up. Is the patient at elevated risk based on the Solares Syndrome criteria? No - If yes, consider genetic counseling and testing with high risk follow up. Final Signed Date and Time: 05/26/2021 9:49 am Signed by: MD CALDERON [facility] DISCH.SUMon 10-11-2020 DISCH.[facility] Date of : [address] [address] Unit Number: [id number] Discharge Summary Patient Status: ADM IN Attending Doctor: Clif Borjas DO Service Date: 10/11/20 1058 Discharge Summary Admit Date Admission Date Time: 10/10/20 1618 Anticipated Discharge Date 10/11/20 Final Dx/Problem List 1. Hernia Patient Problems Reviewed: Yes Chief Complaint/HPI Postop status Reason for Admission Postop pain management Operations/Procedures Laparoscopic converted to open mesh repair of incarcerated incisional hernia. Extensive lysis of adhesions. Hospital Course Patient presents for elective repair of hernia. She underwent laparoscopic converted to open mesh repair of incarcerated incisional hernia. Surgery also required extensive lysis of adhesions. She was admitted postoperatively for pain control. Postop course unremarkable and discharged postop day 1. Vital Signs Vital Signs (Last) Result Date Time Pulse Ox 93 10/11 0800 O2 Delivery NASAL CANNULA 10/11 0800 O2 Flow Rate 1 10/11 0800 B/P 148/79 10/11 0710 Temp 98.3 10/11 0710 Pulse 79 10/11 0710 Resp 23 10/11 0710 Pertinent Physical Findings Abdomen soft, expected incisional tenderness, no rebound or guarding. Incision clean/dry/ intact. Prescriptions Continue taking these medications: Albuterol Sulfate (Proair Hfa Inhaler) 8.5 GM HFA.AER.AD 2 PUFFS INHALATION* EVERY 4 HOURS NEEDED as needed for SHORTNESS OF BREATH Citalopram Hydrobromide* (celeXA 10MG TAB*) 10 MG TABLET 40 MILLIGRAM ORAL EVERY DAY Melatonin* (Melatonin Tab*) 5 MG TABLET 5 MILLIGRAM ORAL AT BEDTIME Fluticasone/Salmeterol (Advair 100-50 Diskus) 1 EACH DISK.W.DEV 1 PUFFS INHALATION* 2 TIMES DAILY Instructions: ASTHMA Start taking the following new medications: HYDROcodone BIT/APAP* (Thomson 5-325 Tab*) 1 EACH TABLET 1 EACH ORAL EVERY 4 HOURS NEEDED as needed for pain Days = 7 Qty = 30 No Refills Referrals Ordered Referrals Surgery In Two Weeks For Providers: Clif Borjas DO [address] [id number] Condition: Good Disposition Home Disclaimer This dictation was created using voice recognition software. Phonetic and/or minor grammatical errors may exist. eSign Date and Time Clif Borjas DO Verified/Reviewed by 10/11/20 1100 [facility] OR.OPRPTon 10-10-2020 Operative Report Normal [facility] OR.OPRPT Patient Name: SANDRA SRIVASTAVA [address] [facility] Date of : [address] [address] Unit Number: [id number] Operative Report Patient Status: DIS IN Attending Doctor: Clif Borjas DO Service Date: 10/10/20 1243 Operative Report Procedure Date: 10/10/20 Attending Physician: Clif Borjas DO Procedure: Preoperative Diagnosis: Multiple incisional hernias with incarcerated fat and incarcerated small bowel Postoperative Diagnosis: Same Procedure Type: 1: Laparoscopic converted to open mesh repair of incarcerated incisoinal hernia 2: Extensive lysis of adhesions requiring over 50% of the case Anesthesia: General Estimated Blood Loss: 20 cc Complications: None Findings/Specimens: Extensive adhesions requiring converting to open procedure. No specimens Procedure Details: Indication: Multiple midline incisional hernias containing fat as well as incarcerated small bowel. Patient taken the OR on that basis. Procedure: Patient was taken to the OR and laid in supine position on the OR table. After induction of general endotracheal anesthesia she was prepped and draped in usual sterile fashion. In the right mid abdomen a small transverse incision was created with a 15 blade scalpel. The abdomen was entered with a cutdown approach however there were numerous dense adhesions intra-abdominally and I was unable to proceed with additional port placement. A second small incision was created at Mcguire's point. Again there were dense adhesions preventing proceeding with a laparoscopic approach. Therefore procedure was converted to open procedure. Upper midline incision was created with a 10 blade scalpel. Dissection was carried down to linea alba with electrocautery. The abdomen was entered taking care to avoid injury to intra-abdominal structures. There were numerous defects along the midline containing fat as well as a loop of incarcerated small bowel. There were dense adhesions over the entire anterior abdominal wall. After a significant extensive lysis of adhesions I was able to clear enough space anteriorly to be able to place mesh. I was able to clear on both sides to the area of port placement and the port sites were closed from the inside with interrupted PDS sutures. These were also closed from the outside on both sides. Next the posterior rectus sheath on both sides were divided from linea alba along the medial aspect. Using a running #1 PDS the posterior rectus sheaths were approximated along the midline. On the right side a small defect in the posterior rectus sheath was closed with bridging a small section of omentum over the defect. next the mesh was placed in the retrorectus space and tacked on 4 corners to the posterior rectus sheath. Next the midline was closed with a running looped PDS suture from each side. Next the wound was irrigated and the skin along midline as well as the port sites bilaterally were closed with daljit. A sterile dressing was placed. The patient tolerated the procedure well, without complication, and at end of case was transported to recovery area in stable condition. Greater than 50% of time of case was spent on lysis of adhesions. Disclaimer This dictation was created using voice recognition software. Phonetic and/or minor grammatical errors may exist. eSign Date and Time Clif Borjas DO Verified/Reviewed by 10/16/20 1209 [facility] AYAH DIGITAL SCREEN JORGE Cervantes 03-29-2020 Patient Name: SANDRA SRIVASTAVA Mammography ACCESSION EXAM DATE/TIME PROCEDURE ORDERING PROVIDER [id number] 03/29/2020 14:26 EST MG Breast Tomosynthesis DO RODRIGUEZ KERRIMayur LYNN BI Scr CPT code [id number] Reason For Exam (MG Breast Tomosynthesis BI Scr) routine Report TIME SINCE LAST MAMMOGRAM: Last mammogram was performed 1 year and 2 months ago. REASON FOR EXAM: screening, asymptomatic. PROCEDURE: MG BREAST TOMOSYNTHESIS BL SCR: MARCH 29, 2020 - 2D/3D Procedure 3D Bilateral CC and MLO view(s) were taken. 2D Bilateral CC and MLO view(s) were taken. Prior study comparison: January 16, 2019, bilateral MG breast tomosynthesis bl scr performed at [facility]. January 03, 2018, bilateral MG breast tomosynthesis bl scr performed at [facility]. July 03, 2016, bilateral MG breast tomosynthesis bl scr performed at [facility]. TISSUE DENSITY: BIRADS C - The breast tissue is heterogeneously dense, which could obscure underlying abnormalities. . FINDINGS: No suspicious masses, architectural distortions or suspiciously clustered microcalcifications are identified. There is no evidence of skin thickening or nipple retraction. There are no significant changes when compared with prior studies. No mammographic evidence of malignancy. Markings on images: BB's = Nipples; skin lesions Open nunam iqua = Palpable Line = Scar 2D digital mammography and tomosynthesis imaging were performed and reviewed with CAD. ASSESSMENT: Category 1 Negative RECOMMENDATION: Routine screening mammogram of both breasts in 1 year. . Report Dictated on Mammography Report Cancer Risk Assessment: This risk assessment is based on patient provided information collected in a risk survey taken at the time of this examination. Lifetime breast cancer risk: 7.65% - If greater than or equal to 20%, consider annual mammogram and annual screening Breast MRI or follow up in high risk clinic. Is the patient at elevated risk based on the HBO criteria? No (Hereditary Breast and Ovarian Cancer) - If yes, consider genetic counseling and testing with high risk follow up. HNPCC mutation risk (Solares Syndrome): 1% - if greater than or equal to 5%, consider genetic counseling, testing and screening colonoscopy. --- Final --- Signed Date and Time: 03/29/2020 4:47 pm Signed by: MD JUAN CARLOS, JEANNE Saucedo [facility] Incoming Radiology Results From [employer] - 03/29/2020 6:00 PM EST Patient Name: SANDRA SRIVASTAVA Mammography ACCESSION EXAM DATE/TIME PROCEDURE ORDERING PROVIDER [id number] 03/29/2020 14:26 EST MG Breast Tomosynthesis DO MICHAEL CHRISTY OROSCON BI Scr CPT code [id number] Reason For Exam (MG Breast Tomosynthesis BI Scr) routine Report TIME SINCE LAST MAMMOGRAM: Last mammogram was performed 1 year and 2 months ago. REASON FOR EXAM: screening, asymptomatic. PROCEDURE: MG BREAST TOMOSYNTHESIS BL SCR: MARCH 29, 2020 - 2D/3D Procedure 3D Bilateral CC and MLO view(s) were taken. 2D Bilateral CC and MLO view(s) were taken. Prior study comparison: January 16, 2019, bilateral MG breast tomosynthesis bl scr performed at [facility]. January 03, 2018, bilateral MG breast tomosynthesis bl scr performed at [facility]. July 03, 2016, bilateral MG breast tomosynthesis bl scr performed at [facility]. TISSUE DENSITY: BIRADS C - The breast tissue is heterogeneously dense, which could obscure underlying abnormalities. . FINDINGS: No suspicious masses, architectural distortions or suspiciously clustered microcalcifications are identified. There is no evidence of skin thickening or nipple retraction. There are no significant changes when compared with prior studies. No mammographic evidence of malignancy. Markings on images: BB's = Nipples; skin lesions Open nunam iqua = Palpable Line = Scar 2D digital mammography and tomosynthesis imaging were performed and reviewed with CAD. ASSESSMENT: Category 1 Negative RECOMMENDATION: Routine screening mammogram of both breasts in 1 year. . Report Dictated on Mammography Report Cancer Risk Assessment: This risk assessment is based on patient provided information collected in a risk survey taken at the time of this examination. Lifetime breast cancer risk: 7.65% - If greater than or equal to 20%, consider annual mammogram and annual screening Breast MRI or follow up in high risk clinic. Is the patient at elevated risk based on the HBOC criteria? No (Hereditary Breast and Ovarian Cancer) - If yes, consider genetic counseling and testing with high risk follow up. HNPCC mutation risk (Solares Syndrome): 1% - if greater than or equal to 5%, consider genetic counseling, testing and screening colonoscopy. --- Final --- Signed Date and Time: 03/29/2020 4:47 pm Signed by: MD JUAN CARLOS, [place], [place] Surgical Pathologyon [facility] Surgical Pathology [id number] [facility] PATHOLOGY AND LABORATORY MEDICINE [address] [place] [address] [phone] FINAL SURGICAL PATHOLOGY REPORT NAME: SRIVASTAVA SANDRA Sue : 1950 69 Y F BILLING NO.: [id number] LOCATION: [id number] PROCEDURE 12/26/2019 DATE: SURGEON: ROBERT SRIVASTAVA M.D. RECEIVED 12/26/2019 DATE: ATTENDING: ROBERT SRIVASTAVA M.D. REPORT DATE: 12/27/2019 COPIES TO: DIAGNOSIS: SPLENIC FLEXURE POLYP, BIOPSY - POLYPOID FRAGMENT OF COLONIC MUCOSA WITH LYMPHOID AGGREGATE SMT/SMT Signature> S KLAUS SAMUEL M.D. CLINICAL INFORMATION: Screening SPECIMEN: COLON POLYP, BIOPSY GROSS DESCRIPTION: Received in formalin labeled colon - splenic flexure polyp is a segment of dowling tissue 0.4 cm. Specimen is entirely submitted in a single cassette. JCK/JAF Disclaimer: The following statement applies to all immunohistochemistry, in situ hybridization, molecular studies, and immunofluorescence testing. The use of one or more reagents in the above tests is regulated as an analyte specific reagent (ASR). These tests were developed and their performance characteristics determined by the clinical laboratories of [facility]. They have not been cleared by the US Food and Drug Administration (FDA). The FDA has determined that such clearance or approval is not necessary. All the above immunostains were performed on paraffin embedded tissue. Appropriate positive and negative controls (where applicable) were run in parallel with the patient's specimen; these controls showed expected staining pattern, with acceptable intensity of staining. Immunohistochemical assays have not been validated on decalcified tissues. Results should be interpreted with caution given the raised possibility of false negativity on decalcified specimens. Professional Performing Location: [address] [address]. DEPARTMENT OF PATHOLOGY AND LABORATORY MEDICINE [place], [place] [id number] Normal [facility] Vital Signs Date Time Vital Sign Value Performing Clinician Facility 06-24-2022 16:11-0400 Blood Pressure Cuff [facility]IS [facility] 06-24-2022 16:11-0400 Blood Pressure Location [facility] CAP INSPECTOR-DATA ANALYSIS ASSISTANT [facility] 06-24-2022 16:11-0400 Blood Pressure Method [place] [place] CAP INSPECTOR-DATA ANALYSIS ASSISTANT [facility] 06-24-2022 16:11-0400 Diastolic Blood Pressure Non-Invasive 97 1 [place] CAP INSPECTOR-DATA ANALYSIS ASSISTANT [facility] 06-24-2022 16:11-0400 Heart rate 85 /min [place] CAP INSPECTOR-DATA ANALYSIS ASSISTANT [facility] 06-24-2022 16:11-0400 Reason For Taking VItal Signs [place] CAP INSPECTOR-DATA ANALYSIS ASSISTANT [facility] 06-24-2022 16:11-0400 Respiratory rate 20 /min [facility] CAP INSPECTOR-DATA ANALYSIS ASSISTANT [facility] 06-24-2022 16:11-0400 Systolic Blood Pressure Non-Invasive 149 1 [place] CAP INSPECTOR-DATA ANALYSIS ASSISTANT [facility] 06-24-2022 15:25-0400 Heart rate 80 /min [place] CAP INSPECTOR-DATA ANALYSIS ASSISTANT [facility] 06-24-2022 15:25-0400 Respiratory rate 20 /min [place] CAP INSPECTOR-DATA ANALYSIS ASSISTANT [facility] 06-24-2022 14:45-0400 Heart rate 80 /min [place] CAP INSPECTOR-DATA ANALYSIS ASSISTANT [facility] 06-24-2022 11:00-0400 Body temperature 97.88 [degF] [place] CAP INSPECTOR-DATA ANALYSIS ASSISTANT [facility] 06-24-2022 10:26-0400 Diastolic Blood Pressure Non-Invasive 91 1 [place] CAP INSPECTOR-DATA ANALYSIS ASSISTANT [facility] 04-05-2023 10:26-0400 Heart rate 75 /min [place] [facility] INSPECTORZibby [facility] 06-24-2022 10:26-0400 Systolic Blood Pressure Non-Invasive 166 1 [place] [facility] INSPECTORZibby [facility] 06-24-2022 10:22-0400 Heart rate 72 /min [place] [facility] INS[facility] 06-24-2022 06:34-0400 Body temperature 98.06 [degF] [place] [facility] INS[facility] 06-24-2022 06:34-0400 Diastolic Blood Pressure Non-Invasive 56 1 [place] [facility] INSPECTORZ[facility]by [facility] 06-24-2022 06:34-0400 Reason For Taking VItal Signs [place] [facility] INSPECTORZibby [facility] 06-24-2022 06:34-0400 Systolic Blood Pressure Non-Invasive 154 1 [place] [facility] INSPECTORZibby [facility] 06-24-2022 06:22-0400 Heart rate 69 /min [place] CAP INSPECTORZibby [facility] 06-24-2022 04:12-0400 Body temperature 97.52 [degF] [place] [facility] INSPECTORZibby [facility] 06-21-2022 04:29-0400 SaO2% (BldA) [Mass fraction] 94 % [place] [employer] [facility] 2022 23:28-0400 Body height 167.7 cm [place] CAP INSPECTORZibby [facility] 2022 23:28-0400 Body weight 79.4 kg [facility] CAP INSPECTOR-DATA ANALYSIS ASSISTANT [facility] 2022 23:28-0400 Body weight 28.23 kg/m2 [facility] CAP INSPECTORZibby [facility] 2022 17:46-0400 Body temperature 103.46 [degF] [facility] CAP INSPECTORZibby [facility] Comment on above: Result Comment: dr. mujica notified. 12-26-2019 10:47-0400 BP Diastolic 73 mm[Hg] [place], [place] 12-26-2019 10:47-0400 BP Systolic 100 mm[Hg] [place] 12-26-2019 10:47-0400 Pulse (Heart Rate) 78 /min [place] 12-26-2019 10:47-0400 Pulse Oximetry 97 % [place] 12-26-2019 10:47-0400 Respiratory Rate 16 /min [place] 12-26-2019 09:13-0400 BMI (Body Mass Index) 27.44 kg/m2 [place] 12-26-2019 09:13-0400 Body Temperature 98.2 [degF] [place] 12-26-2019 09:13-0400 Body weight 77.11 kg [place] 12-26-2019 09:13-0400 Height 167.6 cm [place] Encounters Encounter Date Encounter Type Care Provider Facility Start: 11-27-2024 ambulatory Christy Rodriguez Facility:[facility] Start: 11-24-2024 Encounter for other preprocedural examination Toni Ceballos [facility] Start: 11-22-2024 ambulatory TONI CEBALLOS DO Fac ility:A Start: 11-15-2024 End: 11-15-[address] CHRISTY RODRIGUEZ DO Facility:[facility] Start: 11-15-2024 End: 11-15-[address] CHRISTY RODRIGUEZ DO [facility] Start: 11-10-2024 Encounter for other preprocedural examination Toni Ceballos [facility] Start: 11-06-2024 End: 11-06-[address] Christy Rodriguez DO Work Phone: -[facility] Start: 11-06-2024 End: 11-06-[address] Toni Ceballos DO -[facility] Work Phone: Start: 11-06-2024 End: 11-06-2024 ambulatory Christy Rodriguez Facility:[facility] Start: 08-04-2024 End: 08-25-[address] CHRISTY RODRIGUEZ DO Facility:A Start: 06-14-2024 End: 06-14-2024 ambulatory TONI CEBALLOS DO Facility[facility] Start: 02-21-2024 End: 02-21-[address] CHRISTY RODRIGUEZ DO [facility] Start: 02-21-2024 End: 02-21-[address] CHRISTY RODRIGUEZ DO [facility] Start: 09-15-2023 End: 09-15-[address] CHRISTY RODRIGUEZ DO Facility:B Start: 09-15-2023 End: 09-15-[address] CHRISTY RODRIGUEZ DO [facility] Start: 06-22-2023 End: 06-22-[address] CHRISTY RODRIGUEZ DO Facility:A Start: 06-07-2023 End: 06-07-[address] CHRISTY RODRIGUEZ DO Facility:[facility] Start: 06-07-2023 End: 06-07-[address] CHRISTY RODRIGUEZ DO [facility] Start: 02-22-2023 End: 02-22-[address] CHRISTY RODRIGUEZ DO Facility:B Start: 02-22-2023 End: 02-22-[address] CHRISTY RODRIGUEZ DO [facility] Start: 07-27-2022 End: 07-27-[address] CHRISTY RODRIGUEZ DO [facility] Start: 2022 End: 06-24-2022 Evaluation and management of inpatient VIRAJ ENAMORADO CAP INSPECTOR-DATA ANALYSIS ASSISTANT [facility] Start: 06-01-2022 End: 06-01-[address] CHRISTY RODRIGUEZ DO [facility] Start: 05-25-2022 Transcribe Orders Christy sands Work Phone: [facility] Central Scheduling Comment on above: Asymptomatic [place] (Primary Dx); Encounter for screening mammogram for malignant neoplasm of breast Start: 05-20-2022 End: 05-20-[address] CHRISTY RODRIGUEZ DO [facility] Start: 05-23-2021 End: 05-23-2021 Subsequent hospital visit by physician Christy Rodriguez Work Phone: [facility] Comment on above: Arrived Start: 03-29-2020 End: 03-29-2020 Subsequent hospital visit by physician Christy Rodriguez Work Phone: [facility] Comment on above: Arrived Start: 12-26-2019 End: 12-26-2019 Subsequent hospital visit by physician Robert Srivastava Work Phone: [id number] Comment on above: Arrived Start: 01-16-2019 End: 01-16-2019 Subsequent hospital visit by physician Christy Rodriguez Work Phone: [facility] Comment on above: Arrived Procedures Date Procedure Procedure Detail Performing Clinician Start: 11-06-2024 Methicillin resistan t Staphylococcus aureus screening test Dr. Christy Rodriguez DO Work Phone: Start: 11-06-2024 MRI of lower extremity Dr. Christy Rodriguez DO Work Phone: Start: 05-23-2021 Mammography Christy sands Work Phone: Start: 03-29-2020 Screening digital br east tomosynthesis bi Christy Rodriguez Work Phone: Start: 12-26-2019 End: 12-26-2019 Colonoscopy 3m Scanning Plan of Treatment Date Care Activity Detail Author Start: 12-25-2029 Screening for malign ant neoplasm of colon [employer] Start: 12-25-2024 Screening for malign ant neoplasm of colon [facility] Start: 11-20-2022 Influenza vaccination Influenz a Vaccine (Season Ended) [employer] Start: 05-25-2022 End: 07-26-2023 DBT Breast - bilateral screening Bilateral screening mammogram with tomosynthesis Imaging Routine Encounter for screening mammogram for malignant neoplasm of breast Expected: 05/25/2022, Expires: 07/26/2023 [employer] Comment on above: Expected: 05/25/2022 , Expires: 07/26/2023 Start: 05-25-2022 End: 05-26-2023 DXA Skeletal system.axial Views for bone density DEXA bone density axial skeleton Imaging Routine Asymptomatic menopausal state Expected: 05/25/2022, Expires: 05/26/2023 [employer] [facility] Work Phone: Comment on above: Expected: 05/25/2022 , Expires: 05/26/2023 Start: 05-23-2022 Screening for malign ant neoplasm of breast Mammogram [employer] Start: 05-20-2022 Pneumococcal 65+ yea rs Vaccine (2 of 2 - PPSV23) Pneumococcal 65+ years Vaccine (2 of 2 - PPSV23) [facility] Start: 03-29-2022 Screening for malign ant neoplasm of breast Breast cancer screen [facility] Start: 01-16-2021 Screening for malign ant neoplasm of breast Breast cancer screen [place], [place] Start: 11-20-2020 Influenza vaccination Flu vaccine (# 1) [facility] Start: 03-29-2020 End: 03-29-2020 Appointment 03/29/2020 Appointment Radiology [facility] Start: 01-04-2020 Breast cancer screen Breast cancer s creen [place], [place] Start: 11-21-2019 Influenza vaccination Flu vaccine (# 1) [place] Start: 11-19-2019 Annual Wellness Visi t (AWV) Annual Wellness Visit (AWV) [facility] Start: 11-20-2018 Influenza vaccination Flu vaccine (# 1) [place] Start: 06-21-2015 DEXA (modify frequen cy per FRAX score) DEXA (modify frequency per FRAX score) [place] Start: 06-21-2015 Pneumococcal 65+ yea rs Vaccine (1 of 1 - PPSV23) Pneumococcal 65+ years Vaccine (1 of 1 - PPSV23) [place] Start: 06-21-2015 Pneumococcal Vaccine : 65+ Years (1 - PCV) Pneumococcal Vaccine: 65+ Years (1 - PCV) [facility] Start: 2005 Screening for osteoporosis DEXA (modify frequency per FRAX score) [facility] Start: 2000 Colon cancer screen colonoscopy Colon cancer screen colonoscopy [place], [place] Start: 2000 Screening for malign ant neoplasm of colon Colon cancer screen colonoscopy [place] Start: 2000 Shingles Vaccine (1 of 2) Shingles Vaccine (1 of 2) [facility] Start: 2000 Zoster Vaccines (1 o f 2) Zoster Vaccines (1 of 2) [facility] Start: 06-21-1995 Screening for malign ant neoplasm of colon [facility] Start: 1990 Diabetes screen Diabetes screen [place], [place] Start: 1990 Lipid panel Lipid screen [facility] Start: 1990 Lipid screen Lipid screen [place], [place] Start: 1969 DTaP/Tdap/Td vaccine (1 - Tdap) DTaP/Tdap/Td vaccine (1 - Tdap) [facility] Start: 1969 DTaP/Tdap/Td Vaccine s (1 - Tdap) DTaP/Tdap/Td Vaccines (1 - Tdap) [facility] Start: 1968 Diabetes mellitus screening Diabetes Screening [facility] Start: 1968 Hepatitis C screening Hepatitis C Sc reening [facility] Start: 1962 Depression Screen Depression Screen [facility] Start: 1962 Depression Screening Depression Scre ening [facility] Start: 06-21-1955 COVID-19 Vaccine (1) COVID-19 Vaccin e (1) [facility] Start: 1950 COVID-19 Vaccine (#1) COVID-19 Vacci ne (#1) [facility] Start: 1950 Hepatitis B Vaccines (1 of 3 - 3-dose series) Hepatitis B Vaccines (1 of 3 - 3-dose series) [facility] Start: 1950 Hepatitis C screen Hepatitis C scree n [place], [place] Start: 1950 Hepatitis C screening Hepatitis C sc reen [facility] Start: 1950 Screening for malign ant neoplasm of colon [facility] Start: 1950 Screening for osteoporosis Bone Density Scan [facility] End: 01-16-2019 Screening digital breast tomosynthesis bi DLE AYAH DIGITAL SCREEN BILATERAL Imaging Routine Once for 1 Occurrences starting 01/16/2019 until 01/16/2019 [place] Comment on above: Once for 1 Occurrenc es starting 01/16/2019 until 01/16/2019 Screening digital breast tomosynthesis bi DEL AYAH DIGITAL SCREEN BILATERAL Imaging Routine 01/16/2019 2:24 PM EDT [place] End: 05-23-2021 Screening digital breast tomosynthesis bi [facility] Work Phone: Comment on above: Once for 1 Occurrenc es starting 05/23/2021 until 05/23/2021 Payers Date Payer Category Payer Self-pay 2024 Private Health Insurance [id number] 2019 Medicare [id number] 1950 Unknown [id number] 2.16.8 [id number] 1950 Unknown [id number] 2.16.8 [id number] 1950 Unknown [id number] 2.16.8 [id number] 1950 Unknown [id number] 2.16.8 [id number] 1950 Unknown [id number] 2.16. [id number] 1950 Unknown [id number] 2.16.8 [id number] 1950 Unknown [id number] 2.16.8 [id number] 1950 Unknown [id number] 2.16. [id number] 1950 Unknown [id number] 2.16. [id number] Unknown [id number] 2.16.8 [id number] Unknown [id number] 2.16.8 [id number] Social History Date Type Detail Facility Start: 12-26-2019 End: 11-01-2024 Tobacco smoking status FLIS Former smoker [facility] End: 03-22-1983 History of tobacco use Current smoker [place], [place] End: 03-22-1983 History of tobacco use Cigarette Smoker [place] Start: 08-29-2018 End: 12-26-2019 Tobacco use and exposure Never used [place], [place] Start: 08-29-2018 Alcohol Comment occasional alae . [place] Start: 1950 Sex Assigned At Not on file M [facility] [place], [place] Tobacco smoking status [facility] Start: 1950 Sex Assigned At Female A [facility] Start: 02-14-2018 Sex Female (finding) [facility] Medical Equipment Procedure Code Equipment Code Equipment Origin al Text Equipment Identifier Dates Eye-08/29/2018 [id number] Start: 08-29-2018 Eye-10/17/2018 [id number] Start: 10-17-2018 Functional Status Date Assessment Result Facility 06-24-2022 Functional Status Room check performed [facility] 06-24-2022 Functional Status [facility] 06-24-2022 Functional Status Breakfast Percent 85 [facility] 06-22-2022 Functional Status Demonstrates C orrect Call Light Use No [facility] 06-22-2022 Functional Status [facility] 06-22-2022 Functional Status Activity Shayna tance Minimum assistance [facility] 06-21-2022 Functional Status Single level home [facility] 06-21-2022 Functional Status [facility] 2022 Functional Status [facility] Mental Status Date Assessment Result Facility 06-24-2022 Mental Status Oriented x 4 [facility] 06-24-2022 Mental Status [facility] 06-24-2022 Mental Status [facility] 06-23-2022 [facility] Status [facility] Clinical Notes 10-11-2020 to 11-23-2024 Radiology Note Date & Type Note Facility 11-23-2024 Note [facility] Medical Records Department [address] [place] [address] History Physical Exam 11/23/24 1644 MR#: [id number] Acct: [id number] Name: SANDRA SRIVASTAVA Rep #: [id number] : 1950 74 From: oNhemi MOSS PCP: Dr. Christy Rodriguez, DO Status:PRE [facility] [place] [facility] History and Physical History and Physical Patient Name: Sandra SrivastavaDOB: 1950 From: DATE OF PRE-OPERATIVE EXAM: 11/22/2024 DATE OF SURGERY: 11/27/2024 SCHEDULED PROCEDURE: Robotic assisted left total knee arthroplasty HISTORY OF PRESENT ILLNESS: Patient has had left knee for the past 3 years. Patient states that her pain is constant. Patient states that walking makes her pain worse. Patient states that sitting, resting, elevating the leg helps to alleviate her pain. Patient states that she is no longer able to do leisurely activities such as golf due to her pain. Patient states that she has tried rest, ice, elevation, compression, home exercises, oral medications with help. Patient states oral medications she has tried include Tylenol. Patient states that she has had 2 cortisone injections. Patient denies any history of surgery on the affected joint. Patient states that she has had to walk with a walker due to her left knee. Pain is interfering with her ability to arm activities of daily living as well as golf which she enjoys. She is to be ready for golf season next year. REVIEW OF SYSTEMS: Review Of Systems: Constitutional: Denies change in appetite, fever and weight change. Cardiovasular: Denies chest pain, heart murmur and irregular heartbeat. Respiratory: Denies cough, pneumonia, shortness of breath, tuberculosis and wheezing. Gastrointestinal: Denies constipation, diarrhea, heartburn, nausea, rectal itching, bloody stools and vomiting. Genitourinary: . (F Genital Sx) Denies incontinence. Musculoskeletal: Denies leg swelling, pain, trouble walking and weakness. Skin: Denies Raynaud's, history of shingles and tattoo. Neurological: Denies ambulatory dysfunction, dizziness, numbness/tingling and tremor. Psychiatric: Denies anxiety, insomnia and stress. Hematologic/Lymphatic: Denies anemia, bleeding/bruising tendency and past transfusion. Reviewed, no changes. 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 HERNANDEZ Hernia Repair - (2021) RT Knee- Arthro Medial Meniscectomy and Chondroplasty - (07/28/2024) [email or web address] Anesthesia Complications: None Assistive Devices: Glasses Reviewed, no changes. SOCIAL HISTORY: Social History: Marital: .Occupation: Retired.Work Status: Retired.Hand Dominance: Right-handed. Personal Habits: Cigarette Use: Former.Smokeless Tobacco: Never Used Smokeless Tobacco.E-Cigarette Use: Never used.Alcohol: Daily.Drug Use: Denies Use.Enjoy Exercising: Daily. Reviewed, no changes. VITALS: Ht: 64 Wt: 175lb Wt k.380 BMI: 30.0 BP: 142/90 Pulse: 84 Resp: 16 T: 97.7 T: 36.5C Pain Level: 0/10 O2SatR: 94 ALLERGIES: No Known Drug Allergy MEDICATIONS: Oxycodone HCL 5 mg 1-2 tab by mouth every 4-6 hours as needed for pain, Meloxicam 7.5 mg 1 by mouth twice a day for 4 weeks, Famotidine 20 mg 1 by mouth every day, Ondansetron HCL 4 mg 1-2 tablets by mouth every 8 hours as needed for nausea/vomiting, Multi Vitamin take one(1) tablet daily., Lisinopril 10 mg once a day, Wixela Inhub 250-50 mcg/Act twice a day, Effexor XR 150 mg daily, Allergy Relief 50 mcg/Act 1 by mouth every day, Cetirizine HCL 10 mg 1 by mouth every day, One-A-Day Essential 1po qday, Vitamin B6 100 mg 1 by mouth everyday, Vitamin B12 1000 mcg 1 by mouth every day, Folic Acid 1po qday, Garcinia Cambogia-Chromium 500-200 MG-mcg 1po qday, Turmeric 500 mg take per directions on bottle PRE-OP EXAM: General appearance:NORMAL Other: Eyes: Conjunctivae and lids: NORMAL Pupils: ERR Ears, Nose, Mouth, and Throat: NORMAL Other: Inspection of lips, teeth and gums: NORMAL Other: Neck: Examination of neck: no masses noted. Respiratory: Assessment of respiratory effort: NORMAL Other: Auscultation of lungs: clear to auscultation no wheezes, rhonchi or rales. Cardiovascular: Auscultation of heart: regular rate and rhythm, no murmurs, gallops or rubs. Exam of carotid arteries: NORMAL Other: Gastrointestinal: Exam of abdomen: soft, nontender, nondistended bowel sounds present. Lymphatic: Palpation of nodes in neck: NORMAL Other: Palpation of nodes in Axillae: NORMAL Other: Neurological: see below Psychiatric: Orie (more content not included)... [facility] 11-07-2024 Radiology Diagnostic study note [facility] [address] [place] [address] Extremity Lower without Contra MR#: [id number] Acct: [id number] Name: SANDRA SRIVASTAVA Rep #: [id number] : 1950 F 74 From: Alexandria Negrete MD PCP: Dr. Christy Rodriguez, Status: REG C LI Study:Extremity Lower without Contra Date of Exam: 11/06/24 Exam# [id number] Ordering Dr: Toni Ceballos DO PROCEDURE: EXTREMITY LOWER WITHOUT CONTRA 11/06/2024 REASON FOR EXAM: KNEE PAIN TECHNIQUE: EXTREMITY LOWER WITHOUT CONTRA Coronal and Sagittal reconstruction series were provided. CONTRAST: None One or more dose reduction techniques were used (e.g., Automated exposure control, adjustment of the mA and/or kV according to patient size, use of iterative reconstruction technique). 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 There is subcortical cyst formation in the medial and lateral femoral condyle and medial tibial plateau. Marginal osteophytes are present at all articular surfaces. There is a moderate joint effusion. There is no acute fracture or dislocation. Muscular structures appear intact. There is no soft tissue mass or cyst. There is a 2.4 x 1.3 cm enlarged left inguinal lymph node, image 55/89. There is no visible atherosclerosis. Radiopaque sutures are noted in the rectum. 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 There is a 2.4 x 1.3 cm enlarged left inguinal lymph node, image 55/89. [facility] CC: Dr. Christy Rodriguez DO; Dr. 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 HISTORY: ORDERING SYSTEM PROVIDED HISTORY: Reason for Exam: chronic low back pain Fell down steps 3 to 4 months ago. Lower back sensitive to the touch. Hx of skin CA FINDINGS: 5 lumbar type vertebral bodies. Mild levocurvature. Mild grade 1 anterolisthesis of L4 on L5 and retrolisthesis to a mild degree of L2 on L3 and L3 on L4, unchanged from prior. Preserved vertebral body heights. No visible displaced fracture, compression deformity, or destructive osseous lesion. [id number]-[id number] multilevel disc space narrowing with small endplate osteophytes. However, there is severe L5-S1 disc space narrowing. Advanced lower lumbar facet arthrosis. The included pelvic ring and evaluable sacrum are intact. No significant sacroiliac joint arthrosis. Right upper abdominal quadrant surgical clips. IMPRESSION: 1. No compression deformity. 2. Similar lumbar alignment to prior exam. 3. Similar spondyloarthropathy to prior. Interpreted by: Homer Pandya DO Preliminary Report By: Homer Pandya DO Electronically signed By Homer Pandya DO Dictated Date: 06/07/2023 11:50:23 AM Prelim Date: 06/07/2023 11:52:38 AM Sign Date: 06/07/2023 11:52:38 AM Ordering Provider: CHRISTY RODRIGUEZ [facility] 06-07-2023 Note ORIGINAL EXAMINATION: TWO XRAY VIEWS OF THE CHEST 06/07/2023 11:42 am COMPARISON: 06/24/2022. HISTORY: ORDERING SYSTEM PROVIDED HISTORY: Reason for Exam: exacerbation Asthma, former smoker 35 years ago, hx of skin CA FINDINGS: The lungs are without acute focal process. There is no effusion or pneumothorax. The cardiomediastinal silhouette is without acute process. The osseous structures are without acute process. IMPRESSION: No acute process. Interpreted by: Homer Manuel DO Preliminary Report By: Homer Manuel DO Electronically signed By Homer Manuel DO Dictated Date: 06/07/2023 11:59:23 AM Prelim Date: 06/07/2023 11:59:58 AM Sign Date: 06/07/2023 11:59:58 AM Ordering Provider: [facility] 02-22-2023 Note ORIGINAL EXAMINATION: AP lateral obliques 5 XRAY VIEWS OF THE LUMBAR SPINE02/22/2023 10:11 am COMPARISON: None HISTORY: ORDERING SYSTEM PROVIDED HISTORY: Reason for Exam: Acute right flank pain FINDINGS: There is moderate lumbar levoscoliosis. 5 lumbar-type vertebral bodies show normal height with no acute fracture or compression deformity. There is minimal listhesis at a couple of levels and multilevel wmsk-mc-djsvdnaw disc space narrowing, endplate spurring and severe lower lumbar facet arthropathy. No spondylolysis on the oblique views. Symmetric normal SI joints. No sacral lesion. IMPRESSION: Levoscoliosis and degenerative changes. No acute findings. Interpreted by: Baltazar Cee MD Preliminary Report By: Baltazar Cee MD Electronically signed By Baltazar Cee MD Dictated Date: 02/22/2023 11:59:11 PM Prelim Date: 02/23/2023 12:04:57 AM Sign Date: 02/23/2023 12:04:57 AM Ordering Provider: [facility] 02-22-2023 Note ORIGINAL EXAMINATION: TWO XRAY VIEWS OF THE THORACIC SPINE02/22/2023 10:09 am COMPARISON: None HISTORY: ORDERING SYSTEM PROVIDED HISTORY: Reason for Exam: Acute right flank pain FINDINGS: Thoracic vertebral body height and alignment is within normal limits with no obvious acute fracture, compression deformity or aggressive bone lesion. Multilevel disc space narrowing and large endplate spurs. Normal paraspinal soft tissues. Cervical spine degenerative changes incompletely evaluated. IMPRESSION: Moderate degenerative changes. No acute findings. Interpreted by: Baltazar Cee MD Preliminary Report By: Baltazar Cee MD Electronically signed By Baltazar Cee MD Dictated Date: 02/22/2023 11:58:22 PM Prelim Date: 02/22/2023 11:59:07 PM Sign Date: 02/22/2023 11:59:07 PM Ordering Provider: [facility] 02-22-2023 Note ORIGINAL HISTORY: Right flank pain COMPARISON: 11 November 2019 TECHNIQUE: The following organs are evaluated: Liver, pancreas, spleen, gallbladder, biliary system and kidneys. FINDINGS: The liver is mildly hyperechoic and heterogeneous in echogenicity. There is a 12 mm hepatic cyst. There is cholelithiasis. There is no sonographic Garcia's sign. The common bile duct is within normal limits at 9 mm in diameter. There are a few small echogenic foci in the spleen, up to 15 mm in maximum diameter; the spleen is otherwise unremarkable in appearance. Other than a 3.8 cm right renal cysts, the kidneys are unremarkable in appearance. The pancreas is unremarkable as well. Bladder is normal in appearance. The aorta and inferior vena cava are unremarkable in appearance. There is no free fluid. IMPRESSION: Hepatocellular disease, most likely fatty infiltration. Post cholecystectomy. Other than a right renal cyst, unremarkable examination of the kidneys. Echogenic foci in the spleen, of unlikely significance. Interpreted by: Seema Corbin MD Preliminary Report By: Seema Corbin MD Electronically signed By Seema Corbin MD Dictated Date: 02/22/2023 10:54:27 AM Prelim Date: 02/22/2023 10:58:57 AM Sign Date: 02/22/2023 10:58:57 AM Ordering Provider: [facility] 06-24-2022 Hospital Discharge instructions Patient Education 06/24/2022 15:45:40 Pneumonia, Adult, [id number]-[id number] Pneumonia, Adult Pneumonia is an infection of the lungs. It may be caused by a germ (virus or bacteria). Some types of pneumonia can spread easily from person to person. This can happen when you cough or sneeze. HOME CARE Only take medicine as told by your doctor. Take your medicine (antibiotics) as told. Finish it even if you start to feel better. Do not smoke. You may use a vaporizer or humidifier in your room. This can help loosen thick spit (mucus). Sleep so you are almost sitting up (semi-upright). This helps reduce coughing. Rest. A shot (vaccine) can help prevent pneumonia. Shots are often advised for: People over 65 years old. Patients on chemotherapy. People with long-term (chronic) lung problems. People with immune system problems. GET HELP RIGHT AWAY IF: You are getting worse. You cannot control your cough, and you are losing sleep. You cough up blood. Your pain gets worse, even with medicine. You have a fever. Any of your problems are getting worse, not better. You have shortness of breath or chest pain. MAKE SURE YOU: Understand these instructions. Will watch your condition. Will get help right away if you are not doing well or get worse. Document Released: 08/24/2008 Document Revised: 05/30/2012 Document Reviewed: 05/29/2011 ExitCare Patient Information 2015 [employer]. This information is not intended to replace advice given to you by your health care provider. Make sure you discuss any questions you have with your health care provider. Follow Up Care 2022 17:04:44 With:CHRISTY RODRIGUEZ DO, Internal Medicine, [facility] / Address: [address] [place] [address] [place] [address]- [phone] When:5 to 7 days Comments:Please schedule follow up appt with PCP after d/c. [facility] 06-24-2022 Note Discharge Instructions Thank you for allowing [facility] to assist you with your healthcare needs. The following is important discharge information regarding your hospital visit. Your Care Team [facility] Your Diagnosis Pneumonia Fever HTN (hypertension) Altered mental status Asthma Chest pain Human metapneumovirus pneumonia Shortness of breath What to do next Instructions From Your Doctor You were admitted for multifocal pneumonia that was viral with superimposed bacterial pneumonia. You are being discharged with a prescription for cefuroxime 500 mg twice daily for 7 days. Additionally you are being given a steroid taper. Please take this to completion. A prescription for breathing treatments have been sent to your pharmacy. Additionally a nebulizer machine has been ordered for you. You will use this 4 times per day. You may also use it as needed for increased shortness of breath or wheezing. You will be unable to return to work until cleared by your PCP and off of supplemental oxygen. As we discussed, please be sure to use your oxygen when you are walking anywhere. Goal oxygen saturation should be 92% or higher. There was an abnormal finding on your CT scan that could be related to infection/inflammation or other causes. Radiology recommendation for follow-up in 1 to 2 weeks. You are being discharged with an order for this. Follow Up Appointments Follow Up with CHRISTY RODRIGUEZ DO, Internal Medicine, [facility] / IM When Within 5 to 7 days Why: Please schedule follow up appt with PCP after d/c. Where: [address] [facility] [place] [address]- [phone] The Following Activity and Diet Have Been Ordered for You Discharge Activity - Ordered -- Resume your pre-hospitalization activity, 06/24/22 15:14:00 EDT Discharge Return to Work, School, or Sports - Ordered -- May return to: work, Return to work after eval by PCP and off supplemental O2., 06/24/22 15:14:00 EDT Discharge Diet - Ordered -- No changes were made to your diet during your hospital stay. Please resume your pre hospitalization diet on discharge., 06/24/22 15:14:00 EDT The Following Equipment Has Been Ordered for You No qualifying data available. The Following Treatments Have Been Ordered for You Discharge Labs No qualifying data available. Discharge Radiology Discharge Outpatient Radiology - Ordered -- CTA Chest, f/u adebopathy, follow-up within: 1-2 weeks, Results Notify to: CHRISTY RODRIGUEZ DO, 06/24/22 15:14:00 EDT Other Therapies No qualifying data available. Post Acute Orders No qualifying data available. Someone Will Contact You Regarding These Home Health Referrals No home referrals have been ordered for you. No one will call you. Allergies NKA Medications Please ask your primary doctor or pharmacist before taking any other medication not listed, including over the counter drugs, herbal medications, vitamins and or supplements as they may interact with your home medications. What How Much When Instructions Last Dose New albuterol-ipratropium (albuterol-ipratropium 2.5 mg-0.5 mg/ 3 mL inhalation solution) 3 Milliliter by inhalation Four (4) times a day Duration: 60 Days and q4h prn. Pickup at [facility] #[id number] New cefuroxime (cefuroxime 500 mg oral tablet) 1 tab(s) by mouth Two (2) times a day Duration: 7 Days Pickup at [facility] #[id number] New predniSONE (prednisone 10mg tab (TAPER)) 93-82-46-56-57-81-5mg x 2days/dose by mouth Once a day Duration: 14 Days 9P8kypa,5F1wsdx,1I7rxxi,0O4tire,2X 2days,6Z3cfpy, X2 days. Pickup at [facility] #[id number] Changed guaiFENesin (Mucinex 600 mg oral tablet, extended release) 2 tab(s) by mouth Two (2) times a day Duration: 7 Days Pickup at [facility] #[id number] Changed guaiFENesin (Mucinex 600 mg oral tablet, extended release) 1 tab(s) by mouth Every 12 hours Duration: 7 Days Unchanged albuterol (Albuterol (Eqv-ProAir HFA) 90 mcg/ inh inhalation aerosol) inhale 2 puffs by mouth every 4 to 6 hours if needed Unchanged aspirin (aspirin 81 mg oral delayed release tablet) 1 tab(s) by mouth Every day Unchanged fluticasone-salmeterol (Advair Diskus 100 mcg-50 mcg inhalation powder) 1 puff(s) by inhalation Two (2) times a day Unchanged fluticasone-salmeterol (Wixela Inhub 100 mcg-50 mcg inhalation powder) 1 puff(s) by inhalation Two (2) times a day Unchanged nebivolol (Bystolic 5 mg oral tablet) 1 tab(s) by mouth Once a day Unchanged venlafaxine (venlafaxine 150 mg oral capsule, extended release) 1 cap by mouth Once a day with a meal Pharmacy Information [facility] #[id number]: [address], [place] [phone] What When Comments Stop Taking azithromycin (azithromycin 250 mg oral tablet) take 2 tablets by mouth on day 1 then take 1 tablet on days 2 through 5 Please take this list to your next doctor s visit. Bring all medications you take, including over the counter medications, herbals and other supplements with you to your doctor s visit. Patients and families are reminded to discard old lists and to update any records with all medication providers or retail pharmacies. Education Materials Pneumonia, Adult Pneumonia is an infection of the lungs. It may be caused by a germ (virus or bacteria). Some types of pneumonia can spread easily from person to person. This can happen when you cough or sneeze. HOME CARE Only take medicine as told by your doctor. Take your medicine (antibiotics) as told. Finish it even if you start to feel better. Do not smoke. You may use a vaporizer or humidifier in your room. This can help loosen thick spit (mucus). Sleep so you are almost sitting up (semi-upright). This helps reduce coughing. Rest. A shot (vaccine) can help prevent pneumonia. Shots are often advised for: People over 65 years old. Patients on chemotherapy. People with long-term (chronic) lung problems. People with immune system problems. GET HELP RIGHT AWAY IF: You are getting worse. You cannot control your cough, and you are losing sleep. You cough up blood. Your pain gets worse, even with medicine. You have a fever. Any of your problems are getting worse, not better. You have shortness of breath or chest pain. MAKE SURE YOU: Understand these instructions. Will watch your condition. Will get help right away if you are not doing well or get worse. Document Released: 08/24/2008 Document Revised: 05/30/2012 Document Reviewed: 05/29/2011 ExitCare Patient Information 2015 [employer] [employer] [facility]. This information is not intended to replace advice given to you by your health care provider. Make sure you discuss any questions you have with your health care provider. Additional Information VACCINATE! IT SAVES LIVES! Members of the community who have not yet received the COVID-19 vaccine and would like to receive it can visit one of [facility] vaccine clinics. There are many vaccine clinic locations within the [facility]. For locations and available times, please visit https://gettheshot.coronavirus.[place].gov/. It is important to note that some COVID mobile vaccine clinics are held outdoors and may be canceled in rainy or stormy conditions. To learn more about pediatric vaccinations (ages 5-11), we invite you to visit the [facility] webpage. https://www.Mercateos.org/pag es/2383-Cyelk-Rwxqlfobasz-Frequent aq-Xvvhk-Rjuiefuae.html To learn more about the COVID-19 vaccine, we invite you to visit the CDC website for a list of frequently asked questions. https://www.cdc.gov/coronavirus/-ncov/vaccines/faq.html [place] [facility] Patient Portal Access Instructions: Stay connected with your healthcare team and access your personal medical information anytime with the [facility] Patient Portal.If you would like a full copy of your medical records, please contact the [facility] Medical Records Department, Wednesday through Wednesday between 8a.m. and 4:30p.m. Please follow the directions below to access the portal: 1.Access the email account you provided upon registration to the [facility].2.Look for an invitation email from [facility].3.Open the email and access the invitation link: Accept Invitation to [place] [facility].Fill in the required bee to create your account. Sign into [email or web address] with your username and password that you created in the above steps to stay up to date. You can then view a summary of results, a summary of your visits, and the ability to download your summaries to your computer or send the information securely to a physician. Remember that your healthcare information is confidential, so carefully consider who you will allow to register on the [facility] Patient Portal for access to your information. You can also access the [facility] Patient Portal on the [employer] [place]. Simply click on Health Records under Health Data and then click on the [employer] logo. HOW TO SAFELY DISPOSE OF PRESCRIPTION MEDICATIONS Please use one of the following methods to safely dispose of your unused medications. 1.Use a drug disposal kit: the drug disposal pouch allows you to safely discard your old and unused drugs. Ask your nurse to give you one when you are discharged.2.Visit a local take-back location: Many local pharmacies and police departments have programs that collect old and unwanted prescription drugs. Call your local pharmacy or go to http://bit.Wordy/1D4Qh7v to find one close to you.3.Make use of household items: Use cat litter or old coffee grounds to dispose medications if other options are not available. Mix your drugs with these household products, seal them in an airtight container and throw it into the garbage. Call [facility]: [phone] to be sure your drugs can be disposed of in this way. Some medicines may require a different approach.4.Never flush your medications down the toilet. IF YOU HAVE BEEN PRESCRIBED AN OPIOID FOR PAIN If you have been prescribed an opioid (such as hydrocodone, oxycodone or morphine), it is critical to understand the possible side effects and risks of opioid pain medications. Even when taken as directed, opioids can have several side effects including: Tolerance, meaning you might need to take more of a medication for the same pain relief. Nausea, vomiting and/or constipation. Sleepiness, dizziness, dry mouth, confusion, depression or itching. Physical dependence, meaning you have withdrawal symptoms when a medication is stopped, can develop within a few days. KNOW YOUR RESPONSIBILITIES It is important to know exactly how much and how often to take the opioid pain medications you are prescribed. Never take opioids in higher amounts or more often than prescribed. Do not combine opioids with alcohol or other drugs that cause drowsiness, such as benzodiazepines, also known as benzos, including diazepam and alprazolam, muscle relaxants or sleep aids. Never sell or share prescription opioids. This is illegal. Store opioids in a secure place and out of reach of others (including children, family, friends and visitors). The last page of this document has been signed and retained as a CHART COPY. Signatures Patient Education Materials Pneumonia, Adult, Hguq-lc-Iiah Medication Leaflets My discharge plan and instructions have been reviewed and explained to me and ICAROLA ELLEN S understand my current condition and have read and understand these discharge instructions. I have received a written copy of the plan/instructions. If I have questions, I am aware that I should contact my doctor. Patient/Seam Hammerer Signature: Date/Time: Relationship to Patient: ___ Witness Name/Signature: Date/Time: [facility] 06-24-2022 Note ORIGINAL EXAMINATION: TWO XRAY VIEWS OF THE CHEST06/24/2022 11:13 am COMPARISON: Chest radiograph 2022. CT chest 06/22/2022. HISTORY: ORDERING SYSTEM PROVIDED HISTORY: Reason for Exam: wheezing, hypoxia. FINDINGS: Cardiomediastinal contours are within normal limits. Small left pleural effusion with adjacent small airspace opacity. No other areas of consolidation. No right pleural effusion. No pneumothorax. No acute osseous abnormalities. Spinal degenerative changes. IMPRESSION: Small left pleural effusion with adjacent compressive atelectasis or other airspace disease. Recommend follow-up to resolution. I have personally reviewed the images of this examination and agree with the resident's findings and interpretation. Interpreted by: Gonsalo Yoder MD Preliminary Report By: Rolando Mcmahan Electronically signed By Gonsalo Yoder MD Dictated Date: 06/24/2022 11:24:10 AM Prelim Date: 06/24/2022 11:36:42 AM Sign Date: 06/24/2022 11:36:42 AM Ordering Provider: [facility] 06-24-2022 Note ORIGINAL EXAMINATION: TWO XRAY VIEWS OF THE CHEST06/24/2022 11:13 am COMPARISON: Chest radiograph 2022. CT chest 06/22/2022. HISTORY: ORDERING SYSTEM PROVIDED HISTORY: Reason for Exam: wheezing, hypoxia. FINDINGS: Cardiomediastinal contours are within normal limits. Small left pleural effusion with adjacent small airspace opacity. No other areas of consolidation. No right pleural effusion. No pneumothorax. No acute osseous abnormalities. Spinal degenerative changes. IMPRESSION: Small left pleural effusion with adjacent compressive atelectasis or other airspace disease. Recommend follow-up to resolution. I have personally reviewed the images of this examination and agree with the resident's findings and interpretation. Interpreted by: Gonsalo Yoder MD Preliminary Report By: Rolando Mcmahan Electronically signed By Gonsalo Yoder MD Dictated Date: 06/24/2022 11:24:10 AM Prelim Date: 06/24/2022 11:36:42 AM Sign Date: 06/24/2022 11:36:42 AM Ordering Provider: [facility] 06-24-2022 Respiratory therapy Hospital Progress note PO @ RA @ rest 90%. PO @ RA w/ ambulation 84% reapplied @ 1 lpm per nasal cannula PO 94% Digitally Signed by HARLEY WALTER on 06/24/2022 09:32 AM [facility] 06-23-2022 Note Date of Service 06/23/22 Chief Complaint shortness of breath Subjective Patient states that grand-daughter was ill with respiratory illness and then patient's daughter also became ill. They recovered while patient became short of breath that started slightly on Wednesday. She states that with her history of asthma, everything moves into her chest. By Wednesday, she was starting to struggle with shortness of breath, cough and wheeze. She has been having chest pain with activity that goes away with rest. She was scheduled for stress test and echocardiogram to be done outpatient yesterday but had to cancel because of this recent exacerbation of asthma. Patient came to the emergency room due to shortness of breath. Chest CT done to rule out pulmonary emboli noted multi-focal pneumonia. She was started on Rocephin IV and Azithromycin IV, prednisone, oxygen support by n/c, and DuoNeb and budesonide treatments. Today she is sitting up at the side of the bed, eating breakfast. She is not dyspneic. No accessory muscles used in respiration. WBC normal. Room air with rest, saturation 90 but with any activity, SaO2 drops to high 80's. She was placed on 1L n/c and saturation improved. She also had an elevated D-dimer in the emergency room. ECG notes Q waves in V1 & V1 with no ST elevation. CT angiogram did not show PE. U/S lower extremities negative for DVT. Negative for Covid, influenza, or streptococcus/ legionella. Positive for human metapneumovirus. Objective Vitals and Measurements T: 36.4 C (Oral) TMIN: 36.4 C (Oral) TMAX: 36.9 C (Oral) HR: 68 RR: 18 BP: 162/94 SpO2: 92% Intake and Output 7AM Yesterday to 7AM Today Intake and Output (Last 24 hours) Intake Output Total Summary Total Intake 0.00 Total Output 0.00 Fluid Balance 0.00 Physical Exam GEN: 72 yr old female who is sitting on side of bed, no dyspnea noted. Speaking in full sentences. HEENT: trachea midline, no carotid bruit. CV; S1S2, no gallop, no lower ext. edema, dorsalis pedis pulses 2+ bilaterally PULM: slightly decreased air exchange, right basilar fine crackles that clear with cough and mild basilar rales that mostly clear with cough. 1L n/c ABD: soft, hypoactive CHRISTINA, non-tender, + constipation MUSCULO: moves all extremities without difficulty, good strength INTEG: skin warm and dry NEURO: appropriate, follows all commands Weight Dosing Weight: 79.4 kg (06/20/22) Medications Medications (15) Active Scheduled: (9) albuterol - ipratropium 2.5 mg-0.5 mg/3 mL Inhal Jasmyn UD 3 mL, Inhalation, q4hRT aspirin 81 mg EC 81 mg 1 tab(s), Oral, Daily budesonide 0.5 mg/2 mL Susp UD 0.5 mg 2 mL, Inhalation, BIDRT cefTRIAXone 1 gram(s), IV Piggyback, qDay docusate-senna (Senokot S) 50 mg-8.6 mg Tablet 2 tab(s), Oral, qHS enoxaparin 40 mg/ 0.4mL syringe 40 mg 0.4 mL, Subcutaneous, qDay nebivolol 10mg tablet 5 mg 0.5 tab(s), Oral, qDay predniSONE 20 mg tablet 60 mg 3 tab(s), Oral, qDay venlafaxine 75 mg ER capsule 150 mg 2 cap(s), Oral, qDayM Continuous: (0) PRN: (6) acetaminophen 325 mg Tablet 650 mg 2 tab(s), Oral, q4h acetaminophen 325 mg Tablet 650 mg 2 tab(s), Oral, q4h albuterol 0.083% Soln UD (2.5mg/3 mL) 2.5 mg 3 mL, Inhalation, q2hRT guaifenesin 100 mg/5 mL 120 mL liquid 200 mg 10 mL, Oral, q4h melatonin 3 mg tablet 3 mg 1 tab(s), Oral, qHS ondansetron 2 mg/ 1 mL 2 mL INJ 4 mg 2 mL, IV Push, q6h Lab Results 06/23 05:31 WBC: 7.0 Hgb: 11.5 L Hct: 33.6 L Platelet: 213 Neutrophil %: 74.2 Glucose Level: 124 H Sodium Level: 141 Potassium Level: 4.4 BUN: 15 Creatinine Lvl (s): 0.70 06/22 07:33 WBC: 8.6 Hgb: 11.9 L Hct: 35.1 L Platelet: 197 Neutrophil %: 83.1 H Glucose Level: 122 H Sodium Level: 132 L Potassium Level: 3.4 L BUN: 8 Creatinine Lvl (s): 0.72 pH: 7.43 (06/21/22 04:29:00) pCO2: 35.7 mm Hg (06/21/22 04:29:00) pO2: 69 mm Hg Low (06/21/22 04:29:00) HCO3: 23.9 mmol/L (06/21/22 04:29:00) CO2 Totl: 25 mmol/L High (06/21/22 04:29:00) Base Excess: 0 mmol/L (06/21/22 04:29:00) O2 Sat: 94 % Low (06/21/22 04:29:00) WBC: 7 10^3/mcL (06/23/22 05:31:32) RBC: 3.66 10^6/mcL Low (06/23/22 05:31:32) Hgb: 11.5 G/dL Low (06/23/22 05:31:32) Hct: 33.6 % Low (06/23/22 05:31:32) MCV: 91.9 fL (06/23/22 05:31:32) MCH: 31.5 pg High (06/23/22 05:31:32) MCHC: 34.3 G/dL (06/23/22 05:31:32) RDW: 12.7 % (06/23/22 05:31:32) Platelet: 213 10^3/mcL (06/23/22 05:31:32) MPV: 7.1 fL Low (06/23/22 05:31:32) Monocyte Distribution Width: 24.8 High (06/20/22 17:42:00) Neutrophil %: 74.2 % (06/23/22 05:31:32) Lymphocyte %: 13.3 % (06/23/22 05:31:32) Monocyte %: 11.8 % (06/23/22 05:31:32) Eosinophil %: 0.5 % (06/23/22 05:31:32) Basophil %: 0.2 % (06/23/22 05:31:32) Neutrophil, Absolute: 5.2 10^3/mcL (06/23/22 05:31:32) Lymphocyte, Absolute: 0.9 10^3/mcL (06/23/22 05:31:32) Monocyte, Absolute: 0.8 10^3/mcL (06/23/22 05:31:32) Eosinophil, Absolute: 0 10^3/mcL (06/23/22 05:31:32) Basophil, Absolute: 0 10^3/mcL (06/23/22 05:31:32) Protime: 15.8 seconds High (06/20/22 17:42:00) PT International Ratio: 1.4 (06/20/22 17:42:00) D-Dimer: 2019 ng/mL D-DU High (06/22/22 07:33:00) UA Specimen Type: Clean Catch (06/20/22 17:42:00) UA Color: Yellow (06/20/22 17:42:00) UA Appear: Clear (06/20/22 17:42:00) UA Spec Grav: >=1.030 Abnormal (06/20/22 17:42:00) UA Glucose: Negative. (06/20/22 17:42:00) UA Bili: Negative. (06/20/22 17:42:00) UA Ketones: Negative. (06/20/22 17:42:00) UA Blood: Large Abnormal (06/20/22 17:42:00) UA pH: 5.5 (06/20/22 17:42:00) UA Protein: 100 Abnormal (06/20/22 17:42:00) UA Urobilinogen: 0.2 (06/20/22 17:42:00) UA Nitrite: Negative. (06/20/22 17:42:00) UA Leuk Est: Negative. (06/20/22 17:42:00) UA RBC: 0-5 Abnormal (06/20/22 17:42:00) UA WBC: 0-5 Abnormal (06/20/22 17:42:00) UA Squam Epithelial: 0-5 Abnormal (06/20/22 17:42:00) UA Mucous: Trace (06/20/22 17:42:00) Glucose Level: 124 mg/dL High (06/23/22 05:31:32) Sodium Level: 141 mmol/L (06/23/22 05:31:32) Potassium Level: 4.4 mmol/L (06/23/22 05:31:32) Chloride: 102 mmol/L (06/23/22 05:31:32) CO2: 31 mmol/L (06/23/22 05:31:32) Electrolyte Balance: 8 mEq/L (06/23/22 05:31:32) BUN: 15 mg/dL (06/23/22 05:31:32) Creatinine Lvl (s): 0.7 mg/dL (06/23/22 05:31:32) BUN/Creatinine Ratio: 21 ratio (06/23/22 05:31:32) Calcium Lvl: 9.2 mg/dL (06/23/22 05:31:32) Magnesium Lvl: 2.4 mg/dL (06/23/22 05:31:32) Total Protein: 6.4 G/dL (06/22/22 07:33:00) Albumin Level: 2.9 G/dL Low (06/22/22 07:33:00) Globulin: 3.5 G/dL (06/22/22 07:33:00) A/G Ratio: 0.8 ratio Low (06/22/22 07:33:00) Bili Total: 0.4 mg/dL (06/22/22 07:33:00) Alk Phos: 56 U/L (06/22/22 07:33:00) AST/SGOT: 27 U/L (06/22/22 07:33:00) ALT/SGPT: 30 U/L (06/22/22 07:33:00) GFR Non-: 82 ml/min/1.73sqm (06/23/22 05:31:32) GFR : 100 ml/min/1.73sqm (06/23/22 05:31:32) Lactic Acid Lvl: 0.8 mmol/L (06/22/22 07:33:00) Troponin I High Sensitivity: 33.1 ng/L (06/22/22 07:33:00) Adenovirus: Not Detected TORCH (06/21/22 02:45:00) Coronavirus HKU1 (Not COVID-19): Not Detected TORCH (06/21/22 02:45:00) Coronavirus NL63 (Not COVID-19): Not Detected TORCH (06/21/22 02:45:00) Coronavirus 229E (Not COVID-19): Not Detected TORCH (06/21/22 02:45:00) Coronavirus OC43 (Not COVID-19): Not Detected TORCH (06/21/22 02:45:00) SARS-CoV-2: Not Detected TORCH (06/21/22 02:45:00) Human Metapneumovirus: Detected TORCH Abnormal (06/21/22 02:45:00) Influenza A: Not Detected TORCH (06/21/22 02:45:00) Influenza B: Not Detected TORCH (06/21/22 02:45:00) Parainfluenza 1: Not Detected TORCH (06/21/22 02:45:00) Parainfluenza 2: Not Detected TORCH (06/21/22 02:45:00) Parainfluenza 3: Not Detected TORCH (06/21/22 02:45:00) Parainfluenza 4: Not Detected TORCH (06/21/22 02:45:00) Rhinovirus/Enterovirus: Not Detected TORCH (06/21/22 02:45:00) Respiratory Syncytial Virus: Not Detected TORCH (06/21/22 02:45:00) Mycoplasma pneumoniae: Not Detected TORCH (06/21/22 02:45:00) Chlamydophila pneumoniae: Not Detected TORCH (06/21/22 02:45:00) Bordetella Pertussis: Not Detected TORCH (06/21/22 02:45:00) Bordetella Parapertussis: Not Detected TORCH (06/21/22 02:45:00) COVID-19 Result: Negative. (06/20/22 17:42:00) COVID-19 Int: COVID-19 Int (06/20/22 17:42:00) Flu A PCR (AO): Negative.1 (06/20/22 17:42:00) Flu B PCR (AO): Negative.1 (06/20/22 17:42:00) RSV PCR (AO): Negative.1 (06/20/22 17:42:00) Culture Urine: See Result (06/20/22 20:15:00) Legionella Urine Ag: See Result (06/22/22 14:27:00) Streptococcus Pneumoniae Urine Antig: See Result (06/22/22 14:27:00) Imaging Results and Diagnostics CT Angiography Chest w/ Contrast Result Date: June 22, 2022 Verified By: KLAUS ADAME MD CLINICAL STATEMENT: IMPRESSION: 1. No evidence for pulmonary embolism.2. Small left pleural effusion.3. Bilateral ill-defined and somewhat nodular infiltrates greatest on the left as described. This is probably multifocal pneumonia.4. Mediastinal and hilar adenopathy. The findings could be reactive or hyperplastic, although neoplasm is difficult to exclude.5. Short-term follow-up CT chest with IV contrast recommended to reassess the above findings for resolution, helping to exclude malignancy. CT Head or Brain w/o Contrast Result Date: 2022 Verified By: SEEMA CORBIN MD CLINICAL STATEMENT: IMPRESSION: Mild small vessel ischemic disease. XR Chest 1 View Result Date: 2022 Verified By: SEEMA CORBIN MD CLINICAL STATEMENT: IMPRESSION: Clear lungs. EKG EKG [[facility]] - Completed -- 06/22/22 7:09:00 EDT, 06/22/22 7:09:00 EDT Assessment/Plan 1. Pneumonia Clinical improvement. Fine crackles in right lower lobe that cleared with cough, bi-basilar slight rhonchi that mostly improved with cough. Started on Rocephin and Azithromycin IV, but since discontinued due to viral culture positive. She is supported with oxygen at 1L due to some hypoxia with ambulation. She remains on budesonide nebulized, Symbicort, and nebulizer treatments for support. She is on prednisone 20mg orally. Continue droplet isolation. 2. Fever Afebrile. Likely related to respiratory virus resulting in inflammatory response.. Antibiotics discontinued. 3. HTN (hypertension) Blood pressure remains elevated. Continue nebivolol. Monitor closely. Due to chest pain and Anterior Q- waves on ECG, stress test will be done outpatient but will obtain echocardiogram today. Time Spent 35 min spent with patient. She remains a full code. DVT prophylaxis- patient is ambulatory. Lovenox ordered.. Digitally Signed by Minerva Martinez Student on 06/23/2022 12:05 PM [facility] Note Date of Service 06/23/22 Chief Complaint shortness of breath Subjective Patient states that grand-daughter was ill with respiratory illness and then patient's daughter also became ill. They recovered while patient became short of breath that started slightly on Wednesday. She states that with her history of asthma, everything moves into her chest. By Wednesday, she was starting to struggle with shortness of breath, cough and wheeze. She has been having chest pain with activity that goes away with rest. She was scheduled for stress test and echocardiogram to be done outpatient yesterday but had to cancel because of this recent exacerbation of asthma. Patient came to the emergency room due to shortness of breath. Chest CT done to rule out pulmonary emboli noted multi-focal pneumonia. She was started on Rocephin IV and Azithromycin IV, prednisone, oxygen support by n/c, and DuoNeb and budesonide treatments. Today she is sitting up at the side of the bed, eating breakfast. She is not dyspneic. No accessory muscles used in respiration. WBC normal. Room air with rest, saturation 90 but with any activity, SaO2 drops to high 80's. She was placed on 1L n/c and saturation improved. She also had an elevated D-dimer in the emergency room. ECG notes Q waves in V1 & V1 with no ST elevation. CT angiogram did not show PE. U/S lower extremities negative for DVT. Negative for Covid, influenza, or streptococcus/ legionella. Positive for human metapneumovirus. Objective Vitals and Measurements T: 36.4 C (Oral) TMIN: 36.4 C (Oral) TMAX: 36.9 C (Oral) HR: 68 RR: 18 BP: 162/94 SpO2: 92% Intake and Output 7AM Yesterday to 7AM Today Intake and Output (Last 24 hours) Intake Output Total Summary Total Intake 0.00 Total Output 0.00 Fluid Balance 0.00 Physical Exam GEN: 72 yr old female who is sitting on side of bed, no dyspnea noted. Speaking in full sentences. HEENT: trachea midline, no carotid bruit. CV; S1S2, no gallop, no lower ext. edema, dorsalis pedis pulses 2+ bilaterally PULM: slightly decreased air exchange, right basilar fine crackles that clear with cough and mild basilar rales that mostly clear with cough. 1L n/c ABD: soft, hypoactive CHRISTINA, non-tender, + constipation MUSCULO: moves all extremities without difficulty, good strength INTEG: skin warm and dry NEURO: appropriate, follows all commands Weight Dosing Weight: 79.4 kg (06/20/22) Medications Medications (15) Active Scheduled: (9) albuterol - ipratropium 2.5 mg-0.5 mg/3 mL Inhal Jasmyn UD 3 mL, Inhalation, q4hRT aspirin 81 mg EC 81 mg 1 tab(s), Oral, Daily budesonide 0.5 mg/2 mL Susp UD 0.5 mg 2 mL, Inhalation, BIDRT cefTRIAXone 1 gram(s), IV Piggyback, qDay docusate-senna (Senokot S) 50 mg-8.6 mg Tablet 2 tab(s), Oral, qHS enoxaparin 40 mg/ 0.4mL syringe 40 mg 0.4 mL, Subcutaneous, qDay nebivolol 10mg tablet 5 mg 0.5 tab(s), Oral, qDay predniSONE 20 mg tablet 60 mg 3 tab(s), Oral, qDay venlafaxine 75 mg ER capsule 150 mg 2 cap(s), Oral, qDayM Continuous: (0) PRN: (6) acetaminophen 325 mg Tablet 650 mg 2 tab(s), Oral, q4h acetaminophen 325 mg Tablet 650 mg 2 tab(s), Oral, q4h albuterol 0.083% Soln UD (2.5mg/3 mL) 2.5 mg 3 mL, Inhalation, q2hRT guaifenesin 100 mg/5 mL 120 mL liquid 200 mg 10 mL, Oral, q4h melatonin 3 mg tablet 3 mg 1 tab(s), Oral, qHS ondansetron 2 mg/ 1 mL 2 mL INJ 4 mg 2 mL, IV Push, q6h Lab Results 06/23 05:31 WBC: 7.0 Hgb: 11.5 L Hct: 33.6 L Platelet: 213 Neutrophil %: 74.2 Glucose Level: 124 H Sodium Level: 141 Potassium Level: 4.4 BUN: 15 Creatinine Lvl (s): 0.70 06/22 07:33 WBC: 8.6 Hgb: 11.9 L Hct: 35.1 L Platelet: 197 Neutrophil %: 83.1 H Glucose Level: 122 H Sodium Level: 132 L Potassium Level: 3.4 L BUN: 8 Creatinine Lvl (s): 0.72 pH: 7.43 (06/21/22 04:29:00) pCO2: 35.7 mm Hg (06/21/22 04:29:00) pO2: 69 mm Hg Low (06/21/22 04:29:00) HCO3: 23.9 mmol/L (06/21/22 04:29:00) CO2 Totl: 25 mmol/L High (06/21/22 04:29:00) Base Excess: 0 mmol/L (06/21/22 04:29:00) O2 Sat: 94 % Low (06/21/22 04:29:00) WBC: 7 10^3/mcL (06/23/22 05:31:32) RBC: 3.66 10^6/mcL Low (06/23/22 05:31:32) Hgb: 11.5 G/dL Low (06/23/22 05:31:32) Hct: 33.6 % Low (06/23/22 05:31:32) MCV: 91.9 fL (06/23/22 05:31:32) MCH: 31.5 pg High (06/23/22 05:31:32) MCHC: 34.3 G/dL (06/23/22 05:31:32) RDW: 12.7 % (06/23/22 05:31:32) Platelet: 213 10^3/mcL (06/23/22 05:31:32) MPV: 7.1 fL Low (06/23/22 05:31:32) Monocyte Distribution Width: 24.8 High (06/20/22 17:42:00) Neutrophil %: 74.2 % (06/23/22 05:31:32) Lymphocyte %: 13.3 % (06/23/22 05:31:32) Monocyte %: 11.8 % (06/23/22 05:31:32) Eosinophil %: 0.5 % (06/23/22 05:31:32) Basophil %: 0.2 % (06/23/22 05:31:32) Neutrophil, Absolute: 5.2 10^3/mcL (06/23/22 05:31:32) Lymphocyte, Absolute: 0.9 10^3/mcL (06/23/22 05:31:32) Monocyte, Absolute: 0.8 10^3/mcL (06/23/22 05:31:32) Eosinophil, Absolute: 0 10^3/mcL (06/23/22 05:31:32) Basophil, Absolute: 0 10^3/mcL (06/23/22 05:31:32) Protime: 15.8 seconds High (06/20/22 17:42:00) PT International Ratio: 1.4 (06/20/22 17:42:00) D-Dimer: 2019 ng/mL D-DU High (06/22/22 07:33:00) UA Specimen Type: Clean Catch (06/20/22 17:42:00) UA Color: Yellow (06/20/22 17:42:00) UA Appear: Clear (06/20/22 17:42:00) UA Spec Grav: >=1.030 Abnormal (06/20/22 17:42:00) UA Glucose: Negative. (06/20/22 17:42:00) UA Bili: Negative. (06/20/22 17:42:00) UA Ketones: Negative. (06/20/22 17:42:00) UA Blood: Large Abnormal (06/20/22 17:42:00) UA pH: 5.5 (06/20/22 17:42:00) UA Protein: 100 Abnormal (06/20/22 17:42:00) UA Urobilinogen: 0.2 (06/20/22 17:42:00) UA Nitrite: Negative. (06/20/22 17:42:00) UA Leuk Est: Negative. (06/20/22 17:42:00) UA RBC: 0-5 Abnormal (06/20/22 17:42:00) UA WBC: 0-5 Abnormal (06/20/22 17:42:00) UA Squam Epithelial: 0-5 Abnormal (06/20/22 17:42:00) UA Mucous: Trace (06/20/22 17:42:00) Glucose Level: 124 mg/dL High (06/23/22 05:31:32) Sodium Level: 141 mmol/L (06/23/22 05:31:32) Potassium Level: 4.4 mmol/L (06/23/22 05:31:32) Chloride: 102 mmol/L (06/23/22 05:31:32) CO2: 31 mmol/L (06/23/22 05:31:32) Electrolyte Balance: 8 mEq/L (06/23/22 05:31:32) BUN: 15 mg/dL (06/23/22 05:31:32) Creatinine Lvl (s): 0.7 mg/dL (06/23/22 05:31:32) BUN/Creatinine Ratio: 21 ratio (06/23/22 05:31:32) Calcium Lvl: 9.2 mg/dL (06/23/22 05:31:32) Magnesium Lvl: 2.4 mg/dL (06/23/22 05:31:32) Total Protein: 6.4 G/dL (06/22/22 07:33:00) Albumin Level: 2.9 G/dL Low (06/22/22 07:33:00) Globulin: 3.5 G/dL (06/22/22 07:33:00) A/G Ratio: 0.8 ratio Low (06/22/22 07:33:00) Bili Total: 0.4 mg/dL (06/22/22 07:33:00) Alk Phos: 56 U/L (06/22/22 07:33:00) AST/SGOT: 27 U/L (06/22/22 07:33:00) ALT/SGPT: 30 U/L (06/22/22 07:33:00) GFR Non-: 82 ml/min/1.73sqm (06/23/22 05:31:32) GFR : 100 ml/min/1.73sqm (06/23/22 05:31:32) Lactic Acid Lvl: 0.8 mmol/L (06/22/22 07:33:00) Troponin I High Sensitivity: 33.1 ng/L (06/22/22 07:33:00) Adenovirus: Not Detected TORCH (06/21/22 02:45:00) Coronavirus HKU1 (Not COVID-19): Not Detected TORCH (06/21/22 02:45:00) Coronavirus NL63 (Not COVID-19): Not Detected TORCH (06/21/22 02:45:00) Coronavirus 229E (Not COVID-19): Not Detected TORCH (06/21/22 02:45:00) Coronavirus OC43 (Not COVID-19): Not Detected TORCH (06/21/22 02:45:00) SARS-CoV-2: Not Detected TORCH (06/21/22 02:45:00) Human Metapneumovirus: Detected TORCH Abnormal (06/21/22 02:45:00) Influenza A: Not Detected TORCH (06/21/22 02:45:00) Influenza B: Not Detected TORCH (06/21/22 02:45:00) Parainfluenza 1: Not Detected TORCH (06/21/22 02:45:00) Parainfluenza 2: Not Detected TORCH (06/21/22 02:45:00) Parainfluenza 3: Not Detected TORCH (06/21/22 02:45:00) Parainfluenza 4: Not Detected TORCH (06/21/22 02:45:00) Rhinovirus/Enterovirus: Not Detected TORCH (06/21/22 02:45:00) Respiratory Syncytial Virus: Not Detected TORCH (06/21/22 02:45:00) Mycoplasma pneumoniae: Not Detected TORCH (06/21/22 02:45:00) Chlamydophila pneumoniae: Not Detected TORCH (06/21/22 02:45:00) Bordetella Pertussis: Not Detected TORCH (06/21/22 02:45:00) Bordetella Parapertussis: Not Detected TORCH (06/21/22 02:45:00) COVID-19 Result: Negative. (06/20/22 17:42:00) COVID-19 Int: COVID-19 Int (06/20/22 17:42:00) Flu A PCR (AO): Negative.1 (06/20/22 17:42:00) Flu B PCR (AO): Negative.1 (06/20/22 17:42:00) RSV PCR (AO): Negative.1 (06/20/22 17:42:00) Culture Urine: See Result (06/20/22 20:15:00) Legionella Urine Ag: See Result (06/22/22 14:27:00) Streptococcus Pneumoniae Urine Antig: See Result (06/22/22 14:27:00) Imaging Results and Diagnostics CT Angiography Chest w/ Contrast Result Date: June 22, 2022 Verified By: KLAUS ADAME MD CLINICAL STATEMENT: IMPRESSION: 1. No evidence for pulmonary embolism.2. Small left pleural effusion.3. Bilateral ill-defined and somewhat nodular infiltrates greatest on the left as described. This is probably multifocal pneumonia.4. Mediastinal and hilar adenopathy. The findings could be reactive or hyperplastic, although neoplasm is difficult to exclude.5. Short-term follow-up CT chest with IV contrast recommended to reassess the above findings for resolution, helping to exclude malignancy. CT Head or Brain w/o Contrast Result Date: 2022 Verified By: SEEMA CORBIN MD CLINICAL STATEMENT: IMPRESSION: Mild small vessel ischemic disease. XR Chest 1 View Result Date: 2022 Verified By: SEEMA CORBIN MD CLINICAL STATEMENT: IMPRESSION: Clear lungs. EKG EKG [[facility]] - Completed -- 06/22/22 7:09:00 EDT, 06/22/22 7:09:00 EDT Assessment/Plan 1. Pneumonia Clinical improvement. Fine crackles in right lower lobe that cleared with cough, bi-basilar slight rhonchi that mostly improved with cough. Started on Rocephin and Azithromycin IV, but since discontinued due to viral culture positive. She is supported with oxygen at 1L due to some hypoxia with ambulation. She remains on budesonide nebulized, Symbicort, and nebulizer treatments for support. She is on prednisone 20mg orally. Continue droplet isolation. 2. Fever Afebrile. Likely related to respiratory virus resulting in inflammatory response.. Antibiotics discontinued. 3. HTN (hypertension) Blood pressure remains elevated. Continue nebivolol. Monitor closely. Due to chest pain and Anterior Q- waves on ECG, stress test will be done outpatient but will obtain echocardiogram today. Time Spent 35 min spent with patient. She remains a full code. DVT prophylaxis- patient is ambulatory. Lovenox ordered.. Digitally Signed by Minerva Martinez Student on 06/23/2022 12:05 PM [facility] 06-23-2022 Respiratory therapy Hospital Progress note RA Trial Pt resting on RA upon entering room, at rest SpO2 90% Pt ambulating around room on room air, lowest SpO2 84% Post ambulation on room air, resting in bed, SpO2 88% Pt placed on 1L NC to bring SpO2 92% Pt will remain on 1L NC at this time Digitally Signed by Minerva Oviedo RT on 06/23/2022 09:08 AM [facility] 06-22-2022 Note Date of Service 06/22/22 Chief Complaint dyspnea, fever Subjective 72-year-old female with past medical history significant for asthma, hypertension, depression. Patient presented to [facility] emergency department on 2022 with a 2 day history of chest heaviness, cough, dyspnea, chills, confusion. She was treated with steroids and doxycycline at the end of April. On 06/19/2022 she was prescribed a Z-Ruperto by her PCP. In the emergency department she was febrile with a T high of 39.7. She was tachycardic and tachypneic. Oxygen saturations 89% on room air. This improved to 94% on 2 L via nasal cannula. White blood cell count 10,000. Sodium level 133. Urinalysis negative for nitrates and leukocyte esterase. Specific gravity greater than 1.030 large amount of blood. COVID/flu/RSV negative. Troponin 8.9. EKG showed sinus tachycardia. Nonspecific T wave abnormalities. X-ray chest unremarkable. CT head shows mild small vessel ischemic disease. Patient was given DuoNebs, azithromycin, ceftriaxone, prednisone. She was given 1 L of normal saline decision was made to admit for further evaluation. On admission she was given a dose of magnesium sulfate IV. Overnight patient continued to remain febrile, tachypneic, tachycardic. Still requiring O2 via nasal cannula at 2 L with oxygen saturations from 90 to 94%. BNP elevated to 2019. Troponin 33.1. On exam, patient reports feeling fatigued, still quite dyspneic. No chest pain or palpitations. Cough with sputum production that is thick and yellow. No N/V/D/C. No dysuria. No paresthesias. Denies pain. Objective Vitals and Measurements T: 36.6 C (Oral) TMIN: 36.6 C (Oral) TMAX: 37.8 C (Oral) HR: 92(Monitored) RR: 20 BP: 147/91 SpO2: 93% Intake and Output 7AM Yesterday to 7AM Today Intake and Output (Last 24 hours) Intake Oral Intake 200.00 Output Urine Count 2.00 Total Summary Total Intake 200.00 Total Output 0.00 Fluid Balance 200.00 Physical Exam GEN: Appears acutely ill THROAT: Oral cavity and pharynx pink and moist. Voice hoarse. CHEST: Normal S1 and S2. Rhythm is regular. Faint exp wheeze, improved from yesterday but still with the same O2 requirements. ABD: Positive bowel sounds x 4 quads. Soft, nondistended, nontender. EXT: No significant deformity or joint abnormality. No edema. Peripheral pulses intact. NEURO: Sensation grossly intact SKIN: Skin color normal PSYCH: The mental examination revealed the patient was alert and oriented x 4 Weight Dosing Weight: 79.4 kg (06/20/22) Medications Medications (14) Active Scheduled: (8) albuterol - ipratropium 2.5 mg-0.5 mg/3 mL Inhal Jasmyn UD 3 mL, Inhalation, q4hRT aspirin 81 mg EC 81 mg 1 tab(s), Oral, Daily budesonide 0.5 mg/2 mL Susp UD 0.5 mg 2 mL, Inhalation, BIDRT cefTRIAXone 1 gram(s), IV Piggyback, qDay enoxaparin 40 mg/ 0.4mL syringe 40 mg 0.4 mL, Subcutaneous, qDay nebivolol 10mg tablet 5 mg 0.5 tab(s), Oral, qDay predniSONE 20 mg tablet 60 mg 3 tab(s), Oral, qDay venlafaxine 75 mg ER capsule 150 mg 2 cap(s), Oral, qDayM Continuous: (0) PRN: (6) acetaminophen 325 mg Tablet 650 mg 2 tab(s), Oral, q4h acetaminophen 325 mg Tablet 650 mg 2 tab(s), Oral, q4h albuterol 0.083% Soln UD (2.5mg/3 mL) 2.5 mg 3 mL, Inhalation, q2hRT guaifenesin 100 mg/5 mL 120 mL liquid 200 mg 10 mL, Oral, q4h melatonin 3 mg tablet 3 mg 1 tab(s), Oral, qHS ondansetron 2 mg/ 1 mL 2 mL INJ 4 mg 2 mL, IV Push, q6h Lab Results 06/22 07:33 WBC: 8.6 Hgb: 11.9 L Hct: 35.1 L Platelet: 197 Neutrophil %: 83.1 H Glucose Level: 122 H Sodium Level: 132 L Potassium Level: 3.4 L BUN: 8 Creatinine Lvl (s): 0.72 06/21 06:19 WBC: 11.8 H Hgb: 13.1 Hct: 38.3 Platelet: 211 Neutrophil %: 87.6 H Glucose Level: 166 H Sodium Level: 133 L Potassium Level: 4.0 BUN: 9 Creatinine Lvl (s): 0.87 Imaging Results and Diagnostics CT Angiography Chest w/ Contrast Result Date: June 22, 2022 Verified By: KLAUS ADAME MD CLINICAL STATEMENT: IMPRESSION: 1. No evidence for pulmonary embolism.2. Small left pleural effusion.3. Bilateral ill-defined and somewhat nodular infiltrates greatest on theleft as described. This is probably multifocal pneumonia.4. Mediastinal and hilar adenopathy. The findings could be reactive orhyperplastic, although neoplasm is difficult to exclude.5. Short-term follow-up CT chest with IV contrast recommended to reassess theabove findings for resolution, helping to exclude malignancy. CT Head or Brain w/o Contrast Result Date: 2022 Verified By: SEEMA CORBIN MD CLINICAL STATEMENT: IMPRESSION: Mild small vessel ischemic disease. XR Chest 1 View Result Date: 2022 Verified By: SEEMA CORBIN MD CLINICAL STATEMENT: IMPRESSION: Clear lungs. EKG Electrocardiogram [AOH] (EKG [AOH]) - InProcess -- 06/22/22 7:09:00 EDT, 06/22/22 7:09:00 EDT Assessment/Plan 1. Pneumonia 2. Fever 3. HTN (hypertension) Pneumonia History of Asthma. Patient uses Wixela and albuterol rescue inhaler at home. Budesonide twice daily and DuoNebs every 4 hours and as needed. Encourage incentive spirometer. Patient demonstrated accurate use of incentive spirometer. Initial chest x-ray was negative. Pt continued to have fever, tachycardia. She has increase in thick, yellow sputum. No improvement in oxygenation. D-Dimer elevated to 2019. CTA chest obtained. No PE. Demonstrated Small left pleural effusion. Bilateral, ill-defined and somewhat nodular infiltrates greatest on the left that is likely multifocal pneumonia. Mediastinal and hilar adenopathy. These findings could be reactive or hyperplastic. Neoplasm difficult to exclude. Radiology recommends short-term follow-up with contrast. This could be related to HMpV however will start Rocephin as patient has not shown any improvement over the past two days. Continue steroids and inhaled bronchodialators. Fever Tylenol as needed. Patient has adequate oral intake. Will discontinue IV fluids. Blood cultures show no growth to date. Urine culture shows no growth to date. HTN- SBP goal 140 or less. Continue home antihypertensives. DVT prophylaxis: Lovenox Labs, diagnostics, and progress notes reviewed as noted in HPI Code Status: Full code Plan of care discussed with patient. All questions answered. Patient verbalizes understanding is agreeable to plan of care. This dictation was performed using voice recognition software and may include grammatical and/or spelling errors. Digitally Signed by SHANTEL BARBOUR on 06/22/2022 04:28 PM [facility] 06-22-2022 Evaluation + Plan note Future Scheduled TestsNM Myocardial Spect Rest/Stress 06/22/22 [facility] 06-22-2022 Note ORIGINAL EXAMINATION: CTA OF THE CHEST 06/22/2022 11:29 am TECHNIQUE: CTA of the chest was performed after the administration of intravenous contrast. Multiplanar reformatted images are provided for review. MIP images are provided for review. Automated exposure control, iterative reconstruction, and/or weight based adjustment of the mA/kV was utilized to reduce the radiation dose to as low as reasonably achievable. COMPARISON: February 22, 2018 HISTORY: ORDERING SYSTEM PROVIDED HISTORY: Reason for Exam: dyspnea, tachycardia, hypoxia, elevated d-dimer FINDINGS: Minor degenerative changes are noted in the spine. No other definite osseous abnormality seen. Scattered areas of pulmonary and pleural scarring are noted bilaterally. A small left pleural effusion is present with some adjacent atelectasis. Areas of consolidation are visible, somewhat ill-defined and nodular. This affects the left upper lobe and the superior segment of the left lower lobe. There is minimal right upper lobe involvement noted as well. Mild right paratracheal adenopathy is noted, 11 mm. Right hilar adenopathy measures 1.4 cm. Right-sided subcarinal adenopathy is 2.8 cm. Left lower hilar adenopathy 1.3 cm. No pulmonary artery defect is identified to indicate thromboembolism. No additional contributory abnormality identified. IMPRESSION: 1. No evidence for pulmonary embolism. 2. Small left pleural effusion. 3. Bilateral ill-defined and somewhat nodular infiltrates greatest on the left as described. This is probably multifocal pneumonia. 4. Mediastinal and hilar adenopathy. The findings could be reactive or hyperplastic, although neoplasm is difficult to exclude. 5. Short-term follow-up CT chest with IV contrast recommended to reassess the above findings for resolution, helping to exclude malignancy. Interpreted by: Klaus Adame MD Preliminary Report By: Klaus Adame MD Electronically signed By Klaus Adame MD Dictated Date: 06/22/2022 11:30:10 AM Prelim Date: 06/22/2022 11:34:38 AM Sign Date: 06/22/2022 11:34:38 AM [facility]ing [facility] 06-22-[facility]22 Note ORIGINAL EXAMINATION: CTA OF THE CHEST 06/22/2022 11:29 am TECHNIQUE: CTA of the chest was performed after the administration of intravenous contrast. Multiplanar reformatted images are provided for review. MIP images are provided for review. Automated exposure control, iterative reconstruction, and/or weight based adjustment of the mA/kV was utilized to reduce the radiation dose to as low as reasonably achievable. COMPARISON: February 22, 2018 HISTORY: ORDERING SYSTEM PROVIDED HISTORY: Reason for Exam: dyspnea, tachycardia, hypoxia, elevated d-dimer FINDINGS: Minor degenerative changes are noted in the spine. No other definite osseous abnormality seen. Scattered areas of pulmonary and pleural scarring are noted bilaterally. A small left pleural effusion is present with some adjacent atelectasis. Areas of consolidation are visible, somewhat ill-defined and nodular. This affects the left upper lobe and the superior segment of the left lower lobe. There is minimal right upper lobe involvement noted as well. Mild right paratracheal adenopathy is noted, 11 mm. Right hilar adenopathy measures 1.4 cm. Right-sided subcarinal adenopathy is 2.8 cm. Left lower hilar adenopathy 1.3 cm. No pulmonary artery defect is identified to indicate thromboembolism. No additional contributory abnormality identified. IMPRESSION: 1. No evidence for pulmonary embolism. 2. Small left pleural effusion. 3. Bilateral ill-defined and somewhat nodular infiltrates greatest on the left as described. This is probably multifocal pneumonia. 4. Mediastinal and hilar adenopathy. The findings could be reactive or hyperplastic, although neoplasm is difficult to exclude. 5. Short-term follow-up CT chest with IV contrast recommended to reassess the above findings for resolution, helping to exclude malignancy. Interpreted by: Klaus Adame MD Preliminary Report By: Klaus Adame MD Electronically signed By Klaus Adame MD Dictated Date: 06/22/2022 11:30:10 AM Prelim Date: 06/22/2022 11:34:38 AM Sign Date: 06/22/2022 11:34:38 AM Ordering Provider: SHANTEL BARBOUR [facility] 06-21-2022 Nurse Progress note pt acting confused. repeats the tv., but orientation questions are correct. pt flushed and hands and arms are shaky. temp indicates fever as charted. pt frequently setting bed alarm off trying to get up . reoriented to using call light. heart rate 110. pt complains of being hot and asks if shes going to survive this. pt is labored with minimal exertion with movement . In bed patients respirations are improved in comparison to last night. pt frequently getting out of bed but states she doesn't know why. assisted to bedside commode and offerred to get in the chair but she declines. Digitally Signed by CONNIE Epperson on 06/21/2022 09:13 PM [facility] 06-21-2022 Respiratory therapy Hospital Progress note Pt took self off HS aerosol treatment for phone call c/o sore throat Explained importance of breathing treatments and why they apply to her stay Will pass on to nightshift therapist Digitally Signed by Minerva Oviedo on 06/21/2022 07:07 PM [facility] 06-21-2022 Evaluation + Plan note Extrac leticia from: Title:History and Physical Author:SHANTEL BARBOUR APRN-DATA ANALYSIS ASSISTANT Date:06/21/22 1. Asthma exacerbation 2. Fever 3. HTN (hypertension) Asthma exacerbation patient uses Wixela and albuterol rescue inhaler at home. Add budesonide twice daily and DuoNebs every 4 hours and as needed. Encourage incentive spirometer. Patient demonstrated accurate use of incentive spirometer. Prednisone 60 mg daily. Respiratory panel collected and pending results. This is sent out to [facility]. Chest x-ray was negative. COVID/flu/RSV negative. Patient had no leukocytosis. This is likely viral. Will discontinue ceftriaxone. Fever Tylenol as needed. Continue normal saline at 70 mL/h. Encourage oral intake. Awaiting respiratory culture. Blood cultures and urine cultures collected and are due for send out to [facility]. HTN- SBP goal 140 or less. Continue home antihypertensives. DVT prophylaxis: Lovenox Labs, diagnostics, and progress notes reviewed as noted in HPI Code Status: Full code Plan of care discussed with patient. All questions answered. Patient verbalizes understanding is agreeable to plan of care. This dictation was performed using voice recognition software and may include grammatical and/or spelling errors. Future Scheduled Tests Radiology* BD Bone Density DEXA Axial Skeleton 07/04/21 * NM Myocardial Spect Rest/Stress 06/22/22 [facility] 04-02-2023 Note Date of Service 06/21/2022 Chief Complaint Family states patient has been sick since yesterday. On antibiotic for URI symptoms since ysterday. C/O chest heaviness, cough, shortness of breath, chills, confusion. History of Present Illness 72-year-old female with past medical history significant for asthma, hypertension, depression. Patient presented to [facility] emergency department on 2022 with a 2 day history of chest heaviness, cough, dyspnea, chills, confusion. She was treated with steroids and doxycycline at theend of April. On 06/19/2022 she was prescribed a Z-Ruperto by her PCP. In the emergency department she was febrile with a T high of 39.7. She was tachycardic and tachypneic. Oxygen saturations 89% on room air. This improved to 94% on 2 L via nasal cannula. White blood cell count 10,000. Sodium level 133. Urinalysis negative for nitrates and leukocyte esterase. Specific gravity greater than 1.030 large amount of blood. COVID/flu/RSV negative. Troponin 8.9. EKG showed sinus tachycardia. Nonspecific T wave abnormalities. X-ray chest unremarkable. CT head shows mild small vessel ischemic disease. Patient was given DuoNebs, azithromycin, ceftriaxone, prednisone. She was given 1 L of normal salinedecision was made to admit for further evaluation. On admission she was given a dose of magnesium sulfate IV. Overnight patient has had a low-grade temperature of 37.7. She has remained tachycardic and tachypneic. Continues to require O2 via nasal cannula at 2 L. Oxygen saturation is 92% on 2 L. On exam patient admits headache. Denies dizziness. Admits occasional fevers. No chills. Admits cough with yellowsputum. Admits dyspnea and wheezing. No chest pain or palpitations. Admits chest tightness. Denies any nausea or vomiting. No dysuria or frequency. Denies any paresthesias. Review of Systems See HPI for specific ROS. All other systems reviewed and negative. Physical Exam Vitals and Measurements T: 38.5 C (Oral) TMIN: 37.2 C (Oral) TMAX: 39.7 C (Rectal) HR: 88 RR: 22 BP: 162/87 SpO2: 92% HT: 167.7 cm WT: 79.4 kg BMI: 28.23 Weight Dosing Weight: 79.4 kg (06/20/22) GEN: Appears acutely ill EYES: No conjunctival erythema, drainage. EOMI EARS: Hearing grossly intact. NOSE: No nasal discharge. THROAT: Oral cavity and pharynx pink and moist. CHEST: Normal S1 and S2. Rhythm is regular. Scattered rhonchi that clears with cough, expiratory wheezing throughout ABD: Positive bowel sounds x 4 quads. Soft, nondistended, nontender. EXT: No significant deformity or joint abnormality. No edema. Peripheral pulses intact. NEURO: Sensation grossly intact SKIN: Skin color normal PSYCH: The mental examination revealed the patient was alert and oriented x 4 Lab Results 06/21 06:19 WBC: 11.8 H Hgb: 13.1 Hct: 38.3 Platelet: 211 Neutrophil %: 87.6 H Glucose Level: 166 H Sodium Level: 133 L Potassium Level: 4.0 BUN: 9 Creatinine Lvl (s): 0.87 06/20 17:42 WBC: 10.9 H Hgb: 14.2 Hct: 40.2 Platelet: 252 Neutrophil %: 83.2 H Protime: 15.8 H PT International Ratio: 1.4 Glucose Level: 151 H Sodium Level: 133 L Potassium Level: 3.8 BUN: 16 Creatinine Lvl (s): 0.94 Imaging Results and Diagnostics CT Head or Brain w/o Contrast Result Date: 2022 Verified By: SEEMA CORBIN MD CLINICAL STATEMENT: IMPRESSION: Mild small vessel ischemic disease. XR Chest 1 View Result Date: 2022 Verified By: SEEMA CORBIN MD CLINICAL STATEMENT: IMPRESSION: Clear lungs. Assessment/Plan 1. Asthma exacerbation 2. Fever 3. HTN (hypertension) Asthma exacerbation patient uses Wixela and albuterol rescue inhaler at home. Add budesonide twice daily and DuoNebs every 4 hours and as needed. Encourage incentive spirometer. Patient demonstrated accurate use of incentive spirometer. Prednisone 60 mg daily. Respiratory panel collected and pending results. This is sent out to [facility]. Chest x-ray was negative. COVID/flu/RSV negative. Patient had no leukocytosis. This is likely viral. Will discontinue ceftriaxone. Fever Tylenol as needed. Continue normal saline at 70 mL/h. Encourage oral intake. Awaiting respiratory culture. Blood cultures and urine cultures collected and are due for send out to [facility]. HTN- SBP goal 140 or less. Continue home antihypertensives. DVT prophylaxis: Lovenox Labs, diagnostics, and progress notes reviewed as noted in HPI Code Status: Full code Plan of care discussed with patient. All questions answered. Patient verbalizes understanding is agreeable to plan of care. This dictation was performed using voice recognition software and may include grammatical and/or spelling errors. Problem List/Past Medical History Ongoing No qualifying data Historical No qualifying data Procedure/Surgical History No qualifying data available. Medications Home Medications (8) Active Advair Diskus 100 mcg-50 mcg inhalation powder 1 puff(s), Inhalation, BID Albuterol (Eqv-ProAir HFA) 90 mcg/inh inhalation aerosol aspirin 81 mg oral delayed release tablet 81 mg = 1 tab(s), Oral, Daily azithromycin 250 mg oral tablet Bystolic 5 mg oral tablet 5 mg = 1 tab(s), Oral, qDay Mucinex 600 mg oral tablet, extended release 600 mg = 1 tab(s), Oral, q12h venlafaxine 150 mg oral capsule, extended release 150 mg = 1 cap(s), Oral, qDayM Wixela Inhub 100 mcg-50 mcg inhalation powder 1 puff(s), Inhalation, BID Allergies NKA Social History Alcohol Use: Current. Frequency: 1-2 times per week., 2022 Family History Unknown Immunizations No qualifying data available. Code Status Code Status - Ordered -- 06/20/22 21:07:00 EDT, Full Code, Constant Order Digitally Signed by SHANTEL BARBOUR on 06/21/2022 12:20 PM [facility]04-02-2023 HCoV 229E RNA GRACE+non-probe Ql (Nph) Not Detected *NA* (06/21/22 2:45 AM)AH Auto Viro/Sero [id number] Note ORIGINAL HISTORY: Altered mental status COMPARISON: No TECHNIQUE: Routine non-contrast head CT with sagittal and coronal reconstructions This exam was performed according to our departmental dose optimization program, and includes the following measures where applicable: automated exposure control, adjustment of the mAs and/or kVp according to patient size and/or exam, and an iterative reconstruction algorithm. FINDINGS: The study is mildly limited by motion. The ventricles and sulci are normal in size and configuration. There are no abnormal intra or extra-axial fluid collections. There is mild irregular decreased attenuation in the cerebral white matter; holt-white matter differentiation is maintained. The calvaria and the bones of the base of the skull are intact. IMPRESSION: Mild small vessel ischemic disease. Interpreted by: Seema Corbin MD Preliminary Report By: Seema Corbin MD Electronically signed By Seema Corbin MD Dictated Date: 2022 9:11:30 PM Prelim Date: 2022 9:12:33 PM Sign Date: 2022 9:12:33 PM Ordering Provider: DIANNE PATINO [facility]04-01-2023 Note ORIGINAL HISTORY: Altered mental status COMPARISON: No TECHNIQUE: Routine non-contrast head CT with sagittal and coronal reconstructions This exam was performed according to our departmental dose optimization program, and includes the following measures where applicable: automated exposure control, adjustment of the mAs and/or kVp according to patient size and/or exam, and an iterative reconstruction algorithm. FINDINGS: The study is mildly limited by motion. The ventricles and sulci are normal in size and configuration. There are no abnormal intra or extra-axial fluid collections. There is mild irregular decreased attenuation in the cerebral white matter; holt-white matter differentiation is maintained. The calvaria and the bones of the base of the skull are intact. IMPRESSION: Mild small vessel ischemic disease. Interpreted by: Seema Corbin MD Preliminary Report By: Seema Corbin MD Electronically signed By Seema Corbin MD Dictated Date: 2022 9:11:30 PM Prelim Date: 2022 9:12:33 PM Sign Date: 2022 9:12:33 PM Ordering Provider: [place] [address]-01-2023 Note ORIGINAL HISTORY: Pain, fever COMPARISON: 20 May 2022 FINDINGS: The film is mildly rotated. The lungs are clear. The pulmonary vasculature is unremarkable in appearance. IMPRESSION: Clear lungs. Interpreted by: Seema Corbin MD Preliminary Report By: Seema Corbin MD Electronically signed By Seema Corbin MD Dictated Date: 2022 6:22:50 PM Prelim Date: 2022 6:23:11 PM Sign Date: 2022 6:23:11 PM Ordering Provider: [facility]04-01-2023 Note ORIGINAL HISTORY: Pain, fever COMPARISON: 20 May 2022 FINDINGS: The film is mildly rotated. The lungs are clear. The pulmonary vasculature is unremarkable in appearance. IMPRESSION: Clear lungs. Interpreted by: Seema Corbin MD Preliminary Report By: Seema Corbin MD Electronically signed By Seema Corbin MD Dictated Date: 2022 6:22:50 PM Prelim Date: 2022 6:23:11 PM Sign Date: 2022 6:23:11 PM Ordering Provider: [address]01-2023 SARS-CoV-2 (COVID-19) RNA GRACE+probe Ql (Nph)Negative *NA* (06/20/22 5:42 PM)AO Auto Urine [id number] Note ORIGINAL EXAMINATION: BONE DENSITOMETRY 06/01/2022 2:26 pm TECHNIQUE: A bone density dual x-ray absorptiometry (DEXA) scan was performed of the lumbar spine and left hip on a Hologic system. COMPARISON: None. HISTORY: ORDERING SYSTEM PROVIDED HISTORY: Reason for Exam: SCREENING, SYMPTOMATIC MENOPAUSAL STATE FINDINGS: LEFT HIP: The bone mineral density in the total hip is measured at 0.978 g/cm2 corresponding to a T-score of 0.3. This is within the normal range by WHO criteria. The bone mineral density of the femoral neck is measured at 0.678 g/cm2 corresponding to a T-score of -1.5. This is within the osteopenic range by WHO criteria. Lumbar Spine: The bone mineral density of the lumbar spine, L1 through L4 is measured at 1.062 g/cm2 corresponding to a T-score of 0.1. This is within the normal range by WHO criteria. 10 year fracture risk: Major osteoporotic fracture, 16%. Hip fracture, 4.8%. IMPRESSION: Osteopenia by WHO criteria. Interpreted by: Merissa Mei Preliminary Report By: Merissa Mei Electronically signed By Merissa Mei Dictated Date: 06/01/2022 2:31:44 PM Prelim Date: 06/01/2022 2:33:31 PM Sign Date: 06/01/2022 2:33:31 PM Ordering Provider: CHRISTY [facility]03-13-2023 Note ORIGINAL EXAMINATION: BONE DENSITOMETRY 06/01/2022 2:26 pm TECHNIQUE: A bone density dual x-ray absorptiometry (DEXA) scan was performed of the lumbar spine and left hip on a Hologic system. COMPARISON: None. HISTORY: ORDERING SYSTEM PROVIDED HISTORY: Reason for Exam: SCREENING, SYMPTOMATIC MENOPAUSAL STATE FINDINGS: LEFT HIP: The bone mineral density in the total hip is measured at 0.978 g/cm2 corresponding to a T-score of 0.3. This is within the normal range by WHO criteria. The bone mineral density of the femoral neck is measured at 0.678 g/cm2 corresponding to a T-score of -1.5. This is within the osteopenic range by WHO criteria. Lumbar Spine: The bone mineral density of the lumbar spine, L1 through L4 is measured at 1.062 g/cm2 corresponding to a T-score of 0.1. This is within the normal range by WHO criteria. 10 year fracture risk: Major osteoporotic fracture, 16%. Hip fracture, 4.8%. IMPRESSION: Osteopenia by WHO criteria. Interpreted by: Merissa Mei Preliminary Report By: Merissa Mei Electronically signed By Merissa Mei Dictated Date: 06/01/2022 2:31:44 PM Prelim Date: 06/01/2022 2:33:31 PM Sign Date: 06/01/2022 2:33:31 PM Ordering Provider: [facility]03-01-2023 Note ORIGINAL EXAMINATION: TWO XRAY VIEWS OF THE CHEST05/20/2022 12:14 pm XR Chest, two views COMPARISON: 02/14/2018 and 03/10/2019 HISTORY: ORDERING SYSTEM PROVIDED HISTORY: Reason for Exam: chest pressure, , history of smoking and chest pain, congestion FINDINGS: The lungs show no infiltrate, consolidation or mass. Heart size and mediastinal contours are stable accounting for differences in projection and patient position. No pneumothorax, pleural fluid, or vascular congestion is seen. The bones show no acute process. There is biapical pleuroparenchymal scarring as previously. Lateral view shows some increased retrosternal clear space. Dorsal spondylosis. IMPRESSION: No acute cardio pulmonary process. Question background of COPD. Interpreted by: Baltazar Cee MD Preliminary Report By: Baltazar Cee MD Electronically signed By Baltazar Cee MD Dictated Date: 05/20/2022 10:51:44 PM Prelim Date: 05/20/2022 10:53:01 PM Sign Date: 05/20/2022 10:53:01 PM Ordering Provider: [facility]03-01-2023 Note ORIGINAL EXAMINATION: TWO XRAY VIEWS OF THE CHEST05/20/2022 12:14 pm XR Chest, two views COMPARISON: 02/14/2018 and 03/10/2019 HISTORY: ORDERING SYSTEM PROVIDED HISTORY: Reason for Exam: chest pressure, , history of smoking and chest pain, congestion FINDINGS: The lungs show no infiltrate, consolidation or mass. Heart size and mediastinal contours are stable accounting for differences in projection and patient position. No pneumothorax, pleural fluid, or vascular congestion is seen. The bones show no acute process. There is biapical pleuroparenchymal scarring as previously. Lateral view shows some increased retrosternal clear space. Dorsal spondylosis. IMPRESSION: No acute cardio pulmonary process. Question background of COPD. Interpreted by: Baltazar Cee MD Preliminary Report By: Baltazar Cee MD Electronically signed By Baltazar Cee MD Dictated Date: 05/20/2022 10:51:44 PM Prelim Date: 05/20/2022 10:53:01 PM Sign Date: 05/20/2022 10:53:01 PM Ordering Provider: CHRISTY [facility]04-15-2022 Evaluation + Plan note Future Scheduled Tests Radiology* BD Bone Density DEXA Axial Skeleton 07/04/21 [facility] [place] [facility] Future Appointments Appointment Date:06/22/2022 08:45:00 AM Scheduled Provider: Location:[facility] Appointment Type:NM Myocardial Spect Rest/Stress Appointment Date:06/22/2022 09:00:00 AM Scheduled Provider: Location:[facility] Appointment Type:CV Procedure - AOH Echo Future Scheduled Tests Radiology* BD Bone Density DEXA Axial Skeleton 07/04/21 * NM Myocardial Spect Rest/Stress 06/22/22 [facility] Evaluation note* Diagnosis Asymptomatic menopausal state- Primary Encounter for screening mammogram for malignant neoplasm of breast [facility] availableWK[facility] Work Phone: Hospital course Narrative No data available for this section [facility] Hospital Discharge instructions No data available for this section [facility] Progress note No data available for this section [facility] Reason for referral (narrative)No reason for referral information availableWKettering Health Work Phone: Discharge Instructions * Instructions* Madhavi Ribera RN - 12/26/2019 Colonoscopy: What to expect at home ACTIVITY: DO NOT DRIVE, OPERATE MACHINERY, OR DRINK ANY ALCOHOL TODAY. Avoid making critical decisions, signing legal documents, or performing any activity that requires alertness for the rest of the day. You may be bloated or have gas pains since air was introduced into the colon for the procedure. Youmay need to pass the gas throughout the day. You may experience a small amount of rectal bleeding; this can be normal after your colonoscopy. Notify your physician if the bleeding is enough to saturate your clothes. Rest the remainder of the day. You may resume normal activity tomorrow. You may return to work tomorrow. DIET: You may resume a normal diet unless notified or recommended by your physician. You may be eager to eat a large meal after fasting, but it is a good idea to start with light mealsand ease into solid foods the first day. (*) If your stomach is upset, try clear liquids and bland, low-fat foods like plain toast or rice. Drink plenty of fluids for the first 24 hours (unless your physician states otherwise). MEDICATION: Resume your normal home medications unless notified or recommended by your physician. If you take blood thinners (such as Coumadin, Eliquis, Plavix, Aspirin, etc.) or anti-inflammatory medications (Advil, Motrin, Aleve, etc.), ask your physician when you may resume these medications. FOLLOW-UP APPOINTMENT: Follow up with or call your physician as needed. When to call for help: Call your doctor IMMEDIATELY or seek medical care if you experience: ? Severe pain or vomiting ? A large amount (filling the toilet) of maroon, bloody stools or tar-like stools ? Your belly is swollen and firm with severe pain ? A fever greater than 101 degrees ? Redness or swelling of arm from the IV site for more than 48 hours ? Sudden onset of chest pain or shortness of breath ? If you become extremely dizzy or pass out (lose consciousness) IF YOU ARE UNABLE TO REACH YOUR PHYSICIAN GO TO NEAREST EMERGENCY DEPARTMENT Colon Polyps You must carefully read the Consumer Information Use and Disclaimer below in order to understand and correctly use this information The Basics Written by the doctors and editors at [facility] What are colon polyps? Colon polyps are tiny growths that form on the inside of the large intestine(also known as the colon) (figure 1). Polyps are very common. Roughly one-third to one-half of all adults have them. They do not usually cause symptoms. But some polyps can be or become cancer, so doctors sometimes remove them. What are the symptoms of colon polyps? Colon polyps do not usually cause symptoms. How do doctors find colon polyps? Doctors usually find colon polyps when they are doing screening tests to check for colon or rectal cancer. Cancer screening tests are tests that are done to try and find cancer early, before a person has symptoms. The screening tests for colon and rectal cancer include: ?Colonoscopy Before having a colonoscopy, you will get medicine to help you relax. Then a doctor will put a thin tube into your anus and advance it into your colon (figure 2). The tube has a camera attached to it, so the doctor can look inside your colon. The tube also has tools on the end, so the doctor can remove pieces of tissue, including polyps. After polyps are removed, they usually go to [facility] to be tested for cancer and other problems. ?Sigmoidoscopy A sigmoidoscopy is very similar to a colonoscopy. The only difference is that this test looks only at the first part of the colon, and a colonoscopy looks at the whole colon. ?CT colonography (also known as virtual colonoscopy) For a virtual colonoscopy, you have a special kind of X-ray taken, called a CT scan. This test creates pictures of the colon. ?Barium enema During a barium enema, a doctor or nurse squirts a fluid that shows up on X-rays intoyour rectum. Then he or she takes X-rays to create pictures of the colon. ?Stool test Stool is another word for bowel movements. Stool tests check for blood or abnormal genes in samples of stool. If a stool test indicates that something might be wrong with the colon, doctors usually follow up with a colonoscopy. Then doctors find polyps, if they are there. How are colon polyps treated? Doctors remove polyps using the same tools they use for a colonoscopy. They can remove polyps either by snipping them off with a special cutting tool, or by catching thepolyps in a noose (figure 3). Most polyps can be removed during a colonoscopy. But sometimes, largepolyps need to be removed at a later time. What happens after I have polyps removed? You might need to have a colonoscopy every few years to check for more polyps. In some people polyps come back. And if you had the kind of polyps that could become cancer, your doctor will want to remove them as they appear. Also, if the polyps you had removed were the kind that could become cancer, people in your family might need to be checked for polyps and colon cancer, too. Can colon polyps be prevented? To reduce your chances of getting (more) polyps or colon cancer: ?Eat a diet that is low in fat and high in fruits, vegetables, and fiber ?Lose weight, if you are overweight ?Do not smoke ?Limit the amount of alcohol you drink All topics are updated as new evidence becomes available and our peer review process is complete. Topic 60841 Version 5.0 Release: 25.3 - C25.127 2017 [employer]. All rights reserved. 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 Hammerer Expl anation ACP-Advance Directive ACP-Power of Machine Maintenance Repairer Latest Code Status on File Code Status Date Activated Date Inactivated Comments Full Code 10/17/2018 7:06 AM 10/17/2018 11:39 AM Full Code 08/29/2018 7:03 AM 08/29/2018 11:25 AM Documents on File Type Date Recorded Patient Seam Hammerer Expl anation Advance Directives and Living Will Power of Machine Maintenance Repairer Summary Purpose Family History No Family History Records FoundNo Family History Records FoundNo Family History Records Found No data available for this section No data available for this section No data available for this section No Family History Records Found No data available for this section No data available for this section No Family History Records FoundNo Family History Records FoundNo Family History Records Found Chief Complaint and Reason for Visit Chief Complaint Admit Date LEFT KNEE CHIP PROTOCAL November 06 12:37pm Additional Source Comments INFORMATION SOURCE (unrecogn ized section and content) DATE CREATED AUTHOR 01/31/2020 [employer] DATE CREATED AUTHOR AUTHOR'S ORGANIZ ATION 04/30/2021 [facility] Susie Sabillon DATE CREATED AUTHOR AUTHOR'S ORGANIZ ATION [facility]/2021 [facility] DATE CREATED AUTHOR AUTHOR'S ORGANIZ ATION 09/18/2023 [facility] ([place] DATE CREATED AUTHOR AUTHOR'S ORGANIZ ATION 11/23/2024 [facility] DATE CREATED AUTHOR AUTHOR'S ORGANIZ ATION 11/24/2024 [facility] DATE CREATED AUTHOR AUTHOR'S ORGANIZ ATION 11/26/2024 [facility] Teams (unrecognized sec tion and content) Astrophysics Professor Relationship Specialty Start Date End Date Michael Christy Anel PCP - General 12/31/17 Astrophysics Professor Relationship Specialty Start Date End Date Rosalva Rodrigueze Anel PCP - General 12/31/17 Team Status: Active Member Role/Relationship Status Dates Dr. Christy Rodriguez DO Primary Care Provider Active Team Status: Inactive Member Role/Relationship Status Dates Dr. Christy Rodriguez DO Primary Care Provider Active Start: November 06, 2024 End: November 06, 2024 Dr. Toni Ceballos DO Attending Provider Active Start: November 06, 2024 End: November 06, 2024 Dr. Toni Ceballos DO Referring Provider Active Start: November 06, 2024 End: November 06, 2024 Care Team (unrecognized sect ion and content) Care Team Personnel Name: CHRISTY RODRIGUEZ DO Position: Physician Member Role: Primary Care Physician Address: Address: [address] [place] [address] Care Team Related Persons Name: HARSHIL SRIVASTAVA Name: HAYDEE LUCIA Address: [address] Care Team Personnel Name: CHRISTY RODRIGUEZ DO Position: Physician Member Role: Primary Care Physician Address: Address: [address] [place] [address] Care Team Related Persons Name: HARSHIL SRIVASTAVA Name: HAYDEE LUCIA Address: [address] Goals (unrecognized section and content) Goals may be documented in a n alternate section FOR RECORDS PERTAINING TO PATIENTS WHO ARE OR HAVE BEEN ENROLLED IN A CHEMICAL DEPENDENCY/SUBSTANCEABUSE PROGRAM, SOME INFORMATION MAY BE OMITTED. This clinical summary was aggregated from multiple sources. Caution should be exercised in using it in the provision of clinical care. This summary normalizes information from multiple sources, and as a consequence, information in this document may materially change the coding, format and clinical context of patient data. In addition, data may be omitted in some cases. CLINICAL DECISIONS SHOULD BE BASED ON THE PRIMARY CLINICAL RECORDS. [facility] [employer] [facility]. provides no warranty or guarantee of the accuracy or completeness of information in this document.
[2024-11-27] MEDS: LR 1,000 ML - BOLUS PREOP 999 ML IV (07:52)
[2024-11-27] MEDS: Magnesium 1 GM over 15 mins IV (07:52)
--- NOTE | 2024-11-27 08:01 | PCM.PRE.AN2 ---
ASA Classification* ASA Classification ASA Classification: 2 Assessment & Plan Anesthesia* Anesthesia Assessment Anesthesia Assessment: Discussed sedation and/or anesthesia options, risks, benefits, and alternatives with patient/parents/legal guardian/POA. Questions invited. The patient/parents/legal guardian/POA seems to understand and agrees to proceed with anesthesia plan. Reviewed the physical assessment, medical history, allergy history and patient home medications list prior to surgery/procedure/anesthetic and documented any changes. Performed airway and anesthesia risk assessments. Anesthesia Type Anesthesia Type: General, MAC, Spinal and Block History Source History Obtained from:: Patient and Chart Anesthesia Focused Assessment* Temperature: 98.4 F Pulse Rate: 70 Blood Pressure: 149/83 Respiratory Rate: 18 Pulse Ox: 97 Oxygen Delivery Method: Room Air Airway Assessment Mouth opens: >3 cm Mallampati Score: II Teeth Condition: Caps/Crowns Neck Range of motion (ROM): Full ROM Labs Anesthesia Preop lab: CBC WBC 7.5 K/mm3 (4.4-11.0) 11/06/24 12:45 11/06/24 RBC 4.18 M/mm3 (4.2-5.4) L 11/06/24 12:45 11/06/24 Hgb 13.2 g/dL (12.0-15.0) 11/06/24 12:45 11/06/24 Hct 39.1 % (37-47) 11/06/24 12:45 11/06/24 Plt Count 241 K/mm3 (150-450) 11/06/24 12:45 11/06/24 CHEMISTRY Potassium 4.1 mmol/L (3.3-5.1) 11/06/24 12:45 11/06/24 Sodium 140 mmol/L (133-145) 11/06/24 12:45 11/06/24 Magnesium 2.1 mg/dL (1.5-2.2) 11/06/24 12:45 11/06/24 BUN 14 mg/dL (4-19) 11/06/24 12:45 11/06/24 Creatinine 0.76 mg/dL (0.70-1.20) 11/06/24 12:45 11/06/24 Glucose 98 mg/dL (70-99) 11/06/24 12:45 11/06/24 COAG PT 13.5 SECONDS (11.7-14.9) 11/06/24 12:45 11/06/24 Pre-Assessment Diagnosis/Proposed Procedure Planned Operative Procedure(s): LEFT TOTAL KNEE ARTHROPLASTY Anesthesia History Anesthesia History - investigation clerk: Anesthesia History - investigation clerk Hx Hospitalization No 11/01/24 14:50 Any Problems With Anesthesia No 11/01/24 14:50 Cholinesterase deficiency No 11/01/24 14:50 You/Your Family Experience No 11/01/24 14:50 fever (hyperthermia) with Relationship Recent Exposure to Contagious No 11/27/24 07:31 Disease Does patient have nerve No 11/01/24 14:50 stimulator Patient instructed to have device shut off --Does patient have Pacemaker No 11/27/24 07:31 or ICD? When Was Last Pacemaker Check QUESTION #4 FULL TEXT: You/Your Family Experience fever (hyperthermia) with Anesthesia Last Oral Intake Last Oral intake: Last Oral Intake NPO since 03:45 11/27/24 07:31 Meds taken in AM with sips of Yes 11/27/24 07:31 water? Meds patient instructed to bupropion, lisinopril, 11/27/24 07:31 take am of surgery advair, nasal spray PONV PONV - investigation clerk: PONV - investigation clerk Female Yes 11/01/24 14:50 HX of Motion Sickness No 11/01/24 14:50 HX of N/V After Surgery No 11/01/24 14:50 Non-Smoker Yes 11/01/24 14:50 Duration of Surgery greater Yes 11/01/24 14:50 than 60 minutes Number of Risk Factors 3 11/01/24 14:50 PONV Score Moderate Risk 11/01/24 14:50 Height & Weight Height & Weight: Anesthesia: Height & Weight Height 5 ft 6 in 11/27/24 07:31 Weight: 80 kg 11/27/24 07:31 Body Mass Index (BMI) 28.4 11/27/24 07:31 Respiratory Assessment Respiratory Assessment - investigation clerk: Respiratory Tract Infection Hx - investigation clerk Hx Respiratory Tract Infection No 11/01/24 14:50 STOP Sleep Apnea STOP Sleep Apnea - investigation clerk: STOP Sleep Apnea - investigation clerk Hx Hypertension Yes: CONTROLLED WITH MED 11/01/24 14:50 Hx Sleep Apnea No 11/01/24 14:50 CPAP BIPAP Do you snore loudly (louder No 11/01/24 14:50 than talking or can be heard Do you often feel tired/ Yes 11/01/24 14:50 fatigued/ sleepy during daytime? Has anyone observed you stop No 11/01/24 14:50 breathing during sleep? STOP Results Positive 11/01/24 14:50 QUESTION #5 FULL TEXT : Do you snore loudly (louder than talking or can be heard through closed doors)? Tobacco Use History Tobacco Use History - investigation clerk: Tobacco Use History - investigation clerk Tobacco Use Smoking Status Former smoker 11/01/24 14:50 Hx Tobacco Use Yes 11/01/24 14:50 Years Smoking Packs Smoked per Day Smoking Cessation Date was No - quit smoking greater 11/01/24 14:50 within the last 15 years than 15 years ago Hx Smoking Cessation Date Hx Smoking Cessation Counseling Hematologic Medial History Hematologic Hx - investigation clerk: Hematologic Medical Hx - chief executive or managing director Hx of Blood Transfusion No 11/01/24 14:50 Hx of Transfusion in last 3 No 11/01/24 14:50 Months Date of Last Transfusion (if within last 3 months) Ever experience any problems No 11/01/24 14:50 with transfusion(s)? Specify any problems Hx of Preganancy in last 3 No 11/01/24 14:50 Months Nurse Filling Out Transfusion DSCHRIBER 11/01/24 14:50 & Questions: Date: 11/01/24 11/01/24 14:50 Time: 14:55 11/01/24 14:50 Patient unable to answer at this time (ie. confused, unrespo /Reproduction History /Reproductive History - investigation clerk: /Reproductive Hx- investigation clerk Hx Now No 11/01/24 14:50 Gestational Age (in weeks): EDC: Hx Hx Para Hx Section SAB No 11/01/24 14:50 Active Medications Active Medications: Current Medications Generic Name Dose Route Start Last Admin Trade Name Freq PRN Reason Stop Dose Admin Acetaminophen 1,000 mg 11/27/24 09:15 11/27/24 07:53 Acetaminophen 500 Mg Tablet PO 11/27/24 09:16 1,000 mg PREOP ONE Administration Celecoxib 400 mg 11/27/24 09:15 11/27/24 07:53 Celecoxib 200 Mg Capsule PO 11/27/24 09:16 400 mg PREOP ONE Administration Sodium Chloride 77.9 ml/ 0 ml 11/27/24 09:15 Ropivacaine 200 mg/ OPERA.SITE 11/27/24 09:16 Epinephrine HCl 0.6 mg/ INTRAOP ONE Ketorolac Tromethamine 30 mg/ Morphine Sulfate 5 mg Dexamethasone Sodium Phosphate 10 mg 11/27/24 09:15 Dexamethasone 10 Mg/Ml Vial IV 11/27/24 09:16 INTRAOP ONE Gabapentin 600 mg 11/27/24 09:15 11/27/24 07:53 Gabapentin 600 Mg Tablet PO 11/27/24 09:16 600 mg PREOP ONE Administration Lactated Ringer's 1,000 mls @ 999 mls/hr 11/27/24 09:15 11/27/24 07:52 IV 11/27/24 10:15 999 mls/hr .Q1H1M AUGUSTO Administration Cefazolin Sodium 2 gm/ Sodium 110 mls @ 150 mls/hr 11/27/24 09:15 Chloride IV 11/27/24 09:58 INTRAOP ONE Tranexamic Acid 1,000 mg/ 110 mls @ 660 mls/hr 11/27/24 09:15 Sodium Chloride IV 11/27/24 09:24 INTRAOP ONE Tranexamic Acid 1,000 mg/ 110 mls @ 660 mls/hr 11/27/24 09:15 Sodium Chloride IV 11/27/24 09:24 INTRAOP ONE Lactated Ringer's 1,000 mls @ 999 mls/hr 11/27/24 09:15 IV 11/27/24 10:15 .Q1H1M AUGUSTO Lactated Ringer's 1,000 mls @ 125 mls/hr 11/27/24 09:15 IV 11/27/24 17:14 .Q8H AUGUSTO Magnesium Sulfate 1 gm/ 102 mls @ 408 mls/hr 11/27/24 09:15 11/27/24 07:52 Dextrose IV 11/27/24 09:29 408 mls/hr PREOP ONE Administration Insulin Human Lispro 1 - 6 unit 11/27/24 09:15 Insulin Lispro 100 Unit/Ml Insuln.Pen SC 11/27/24 18:00 Q4H PRN PRN BG>/= 180, SEE PROTOCOL Protocol PFSH Medical History Wears glasses Cancer Depression Anxiety Alcohol use Arthritis Fatty liver Easy bruising Injury of back Back pain History of diverticulitis Former smoker Asthma History of pain when walking History of edema History of echocardiogram History of stress test Hypertension Home Medications ?Medication ?Instructions ?Recorded ?Last Taken ?Type albuterol sulfate 90 mcg/actuation 1 inh inhalation Q6H PRN shortness 11/01/24 Unknown History breath activated powder inhaler of breath or wheezing ascorbic acid (vitamin C) 500 mg 500 mg PO QDAY 11/01/24 11/26/24 History chewable tablet (C-500) bupropion HCl 150 mg 24 hr tablet, 150 mg PO DAILY 11/01/24 11/27/24 History extended release fluticasone 100 mcg-salmeterol 50 1 inh inhalation BID 11/01/24 11/27/24 History mcg/dose blistr powdr for inhalation (Advair Diskus) fluticasone propionate 50 2 spray intranasal DAILY 11/01/24 11/27/24 History mcg/actuation nasal spray,suspension folic acid 1 mg tablet 1 mg PO DAILY 11/01/24 11/19/24 History ipratropium 0.5 mg-albuterol 3 mg 3 ml inhalation 4X/DAY PRN 11/01/24 Unknown History (2.5 mg base)/3 mL nebulization shortness of breath or wheezing soln lisinopril 10 mg tablet 10 mg PO DAILY 11/01/24 11/27/24 History mecobalamin (vitamin B12) 1,000 1,000 mcg PO DAILY 11/01/24 11/19/24 History mcg chewable tablet multivitamin (One-A-Day Essential 1 tab PO DAILY 11/01/24 11/26/24 History tablet) pyridoxine (vitamin B6) 100 mg 100 mg PO DAILY 11/01/24 11/19/24 History tablet Allergy/AdvReac Type Severity Reaction Status Date / Time No Known Allergies Allergy Verified 11/27/24 07:28 Surgical History History of esophagogastroduodenoscopy (EGD) Hx of colonoscopy Hx of right knee surgery Hx of umbilical hernia repair Hx of right cataract extraction Hx of left cataract extraction History of partial colectomy Hx of hysterectomy Hx of cholecystectomy Hx of appendectomy Social History Smoking Status: Former smoker Review of Systems (Anesthesia) ROS Narrative System reviewed and no additional complaints, except as documented.
[2024-11-27] MEDS: Midazolam 2 MG/2 ML Syringe IV (08:47)
[2024-11-27] MEDS: Cefazolin 1 GM/5 ML Vial 2 GM IV (09:04)
[2024-11-27] MEDS: TRANEXAMIC ACID 1,000 MG/10 ML ML 2000 MG IV (10:06)
[2024-11-27] MEDS: JPS (Morphine 10mg/ml) OPERA.SITE (10:29)
--- NOTE | 2024-11-27 10:49 | PCM.POST.ANE ---
Anesthesia: Postop Eval I Current Vital Signs Temperature: 97.7 F Pulse Rate: 85 Blood Pressure: 105/65 Respiratory Rate: 18 Pulse Ox: 94 Assessment Airway patent: Yes Spontaneous unlabored respirations: Yes nausea: No Vomiting: No Anesthesia Complication: No Fluid Hydration Crystalloid volume administer (ml): 1,700 Total IV fluid infused: 1,700 Progress Note Anesthesia document: Postop Eval 1 completed: Yes
--- NOTE | 2024-11-27 10:57 | RAD_ITS ---
PROCEDURE: KNEE 1 OR 2 VIEWS 11/27/2024 REASON FOR EXAM: POST OP TECHNIQUE: Procedure Code: RADK Modality: DX Procedure: KNEE 1 OR 2 VIEWS Laterality: Left COMPARISON: CT left lower extremity dated 11/07/2024 FINDINGS: Bones: No acute fractures or dislocations are seen. Postsurgical changes involving the distal femur and proximal tibia are noted. There has been interval surgery since the prior CT examination of the lower extremity. Joints: The left knee prosthetic hardware involving the distal femur and proximal tibia appears to be in satisfactory position without evidence of fracture or loosening. Effusion: There is a suprapatellar bursa effusion. Subcutaneous emphysematous air is seen. Soft tissues: Soft tissue swelling of the knee is noted. Other: Surgical daljit overlie the left knee. RAD/Knee 1 or 2 Views IMPRESSION: The left prosthetic knee device appears to be in satisfactory position without evidence of fracture or loosening. Postsurgica L changes are noted. Reading Location: [id number]
--- NOTE | 2024-11-27 11:00 | OP.PCM_ITS ---
Operative Report (Standard) Operative Information Date of Procedure: 11/27/24 Pre-Operative Diagnosis: 1. Left knee osteoarthritis 2. Right knee osteoarthritis Post-Operative Diagnosis: 1. Left knee osteoarthritis 2. Right knee osteoarthritis Surgery/Procedure Performed: 1. Left total knee arthroplasty with robotic arm assistance 2. Right knee corticosteroid injection speed operator: Yes Train Operator: Sandra Mcclendon Tasks completed by first mate: Opening & closing, Implanting device, Hemostasis: Electrocautery and Retracting Additional assistant associate full professor?: No Type of Anesthesia: Spinal/Supplemental RN Documented Start/Stop Times: Operation Date: 11/27/24 09:15 Case Time Into Pre-Op 11/27/24 07:09 Out of Pre-Op 11/27/24 08:31 Anesthesia Start 11/27/24 09:04 Into Room 11/27/24 09:04 Procedure Start 11/27/24 09:25 Procedure End 11/27/24 10:37 Anesthesia End 11/27/24 10:46 Out of Room 11/27/24 10:46 Into Recovery 11/27/24 10:50 Procedure Start Time: : Procedure Stop Time: 10:37 Select all DRAINS/GRAFTS/IMPLANTS that apply: Implanted device Implanted device details: [place] press-fit triathlon CR femur size #4, press-fit tibial component size #3, CS 10 mm polyethylene insert Estimated Blood Loss: 50 cc Specimen collected: No Description of surgery: Patient was identified in the preoperative holding area by name, medical record number, and date of . Informed consent was confirmed with the patient. The operative knee was marked with a surgical marker. Anesthesia then administered a spinal anesthetic in the PACU. She was then brought to the operative suite and positioned supine with all bony prominences well-padded. MAC anesthesia was induced and achieved. We performed a timeout with all parties in attendance in agreement with the side, site, operation be performed. Via a superior medial injection site, a 22-gauge needle was used to inject the previously drawn up solution of 4 cc quarter percent bupivacaine plain and 1 cc 40 mg Kenalog into the right knee after prepping the skin with rubbing alcohol. Injection site was dressed with a Band-Aid. We then placed a well-padded pneumatic tourniquet on the left upper thigh. The left upper extremity was brought across patient's chest throughout the procedure. We then prepped and draped the left lower extremity in a normal, bernadette rile orthopedic fashion. We performed a timeout with all parties in attendance in agreement with the side, site, operation be performed. No concerns were voiced and would like to proceed with surgery. 2 g Ancef was administered prior to the incision by anesthesia staff as well as 1 g IV TXA. First exsanguinated the left lower extremity with a Esmarch bandage. Tourniquet was inflated to 250 mmHg for approximately 45 minutes. Esmarch was removed. I planned a standard midline approach to the left knee approximately 15 cm in length. Skin was sharply incised with a 10 blade scalpel developing full- thickness layers down to the retinaculum. Layers were developed identifying the VMO. I then planned a standard medial parapatellar arthrotomy performed in flexion. The anterior horn of the medial meniscus was released. Hoffa's fat pad was then released. I then everted the patella in extension and brought the knee into 90 degrees of flexion. The anterior horn of the lateral meniscus was then released. The ACL was split in its mid substance with a 10 blade. We then brought the knee back into extension. Patella was examined. Patella demonstrated grade II-III chondromalacia. No unstable flaps were noted. Elected to proceed without resurfacing of the patella. I then placed pins in the metaphyseal distal femur medial to lateral for the Gerson arrays. In similar fashion, I made a 2 cm incision approximately a handsbreadth distal to the tibial tubercle along the medial aspect of the tibia, drilling 2 bicortical pins for the tibial array. The knee was brought into flexion. The patella was subluxed laterally but not everted. Medial lateral retractors were placed. We then utilized the DocOnYou software to confirm our planned surgical procedure and oriented with the patient's osseous anatomy. All checks with the DocOnYou system were confirmed. Patient had a significant flexible varus deformity after performing stress examination utilizing the Gerson software. We elected to place the tibial baseplate in approximately 1 degree of varus to allow for appropriate balancing. Sawblade was then brought in. I first started with the tibial cut, ensuring protection of the MCL and patellar tendon. A tibial wafer was then excised. I then proceeded to make the posterior femoral, anterior, anterior chamfer cuts with the same blade. Ligaments were protected with [employer] retractors. Sawblade was then exchanged to perform the distal femoral and posterior chamfer cuts. The robot was then removed from the surgical field. Remaining loose bone and meniscus was excised carefully. Posterior osteophytes were removed from the distal femur with a curved osteotome and rongeur. Trial components were then placed. Balance was excellent in both extension and 90 degrees flexion with a 10 mm polyethylene insert. No mid flexion instability was apparent. Patellar tracking was excellent. We then marked for tibial baseplate. Distal femoral pegs were drilled. Tibial keel was punched. Trials were removed. Periarticular block was administered. The wound was copiously irrigated with normal saline solution. Tourniquet was deflated. Hemostasis was excellent. An additional 1 g TXA was administered IV. Press-fit tibial and femoral components were impacted in standard fashion with excellent pullout strength. I selected a size 10 mm polyethylene which was placed and impacted per scuba instructor recommendations. Final components appeared very well balanced with excellent range of motion and excellent tracking. 3-minute diluted sterile Betadine soak was performed. The wound was copiously irrigated with normal saline solution. Capsule was closed watertight with #1 strata fix barbed suture with the knee in flexion. Deeper report muscle layer was reapproximated with 0 Vicryl suture. Dermis was reapproximated buried interrupted 2-0 Vicryl suture. Skin was finally reapproximated daljit. Patient tolerated the procedure well without apparent complication. She was safely awakened in the operative suite, transferred to his hospital bed and subsequently to PACU in stable condition. Need for skilled assistant associate full professor: Sandra Mcclendon PA-C was critical to the outcome of the case. During the course of the procedure the physician assistant associate full professor played a vital role. Her intimate knowledge of my steps in the procedure aided in safe and expedient completion of the procedure. The PA played a vital role in positioning particularly in obtaining the appropriate positioning. The PA was also vital in the retraction of soft tissues during the exposure and projecting vital structures. The PA was also vital and protecting soft tissues during times of bony cuts. She also played a vital role in closure with my direct supervision. The PA was also important during reduction and dislocation of the joint and trials intraoperatively. Post Operative Plan: Plan for same-day discharge once same-day surgery criteria are met. Physical therapy see the patient in the preoperative holding area after spinal resolves. Weightbearing: Range of motion and weightbearing as tolerated left lower extremity. Antibiotics: Ancef 1 g prior to discharge DVT Prophylaxis: Multimodal with SCDs, LEATHA hose and early mobilization, aspirin 81 mg twice daily beginning postoperative day #1 Cota: None Dressing: Maintain silver dressing x5 days X-Rays: 2-week x-rays in the office. Follow-up: 2 weeks for staple removal Surgical Findings: Severe left knee osteoarthritis with correctable varus deformity. Good patellar tracking. Complications Complications: No Admit VTE Documentation VTE Present on Admission: No VTE Mechan Device Prophylaxis: SCD's and Thigh High LEATHA Hose VTE Pharm Prophylaxis ordered?: Yes
[2024-11-27] MEDS: LR 1,000 ML - BOLUS POSTOP 999 ML IV (11:02)
[2024-11-27] MEDS: Cefazolin 1 GM/50 ML BAG IV (12:35)
--- NOTE | 2024-11-27 12:51 | POSTOPAN2_ITS ---
Anesthesia Postop Eval I Sum Postop Eval Completion status Anesthesia document: Postop Eval 1 completed: Yes Anesthesia Postop Eval I Summary Anesthesia Postop Eval I Summary: Anesthesia Postop Eval I: Assessment Summary Airway patent Yes 11/27/24 10:49 MASS SPECTROMETRY SPECIALIST.CSIR Spontaneous unlabored Yes 11/27/24 10:49 MASS SPECTROMETRY SPECIALIST.CSIR respirations Mental status nausea No 11/27/24 10:49 MASS SPECTROMETRY SPECIALIST.CSIR Vomiting No 11/27/24 10:49 MASS SPECTROMETRY SPECIALIST.CSIR Anesthesia Postop Eval I: Fluid Summary Crystalloid volume administer 1,700 11/27/24 10:49 MASS SPECTROMETRY SPECIALIST.CSIR (ml) Colloids volume administered ( ml) Blood Product volume administered (ml) Total IV fluid infused 1,700 11/27/24 10:49 MASS SPECTROMETRY SPECIALIST.CSIR Anesthesia Postop Eval I: Summary Notes Anesthesia Complication No 11/27/24 10:49 MASS SPECTROMETRY SPECIALIST.CSIR Anesthesia Complication Comment: Post-operative progress note Anesthesia: Postop Eval II Evaluation Mental status: Awake and Calm Pain Level: 1 nausea: No Vomiting: No Complications Anesthesia Complication: No
--- NOTE | 2024-11-27 12:51 | PCM.POSTANE2 ---
Anesthesia Postop Eval I Sum Postop Eval Completion status Anesthesia document: Postop Eval 1 completed: Yes Anesthesia Postop Eval I Summary Anesthesia Postop Eval I Summary: Anesthesia Postop Eval I: Assessment Summary Airway patent Yes 11/27/24 10:49 DOCTOR OF NURSE ANESTHESIA.CSIR Spontaneous unlabored Yes 11/27/24 10:49 DOCTOR OF NURSE ANESTHESIA.CSIR respirations Mental status nausea No 11/27/24 10:49 DOCTOR OF NURSE ANESTHESIA.CSIR Vomiting No 11/27/24 10:49 DOCTOR OF NURSE ANESTHESIA.CSIR Anesthesia Postop Eval I: Fluid Summary Crystalloid volume administer 1,700 11/27/24 10:49 DOCTOR OF NURSE ANESTHESIA.CSIR (ml) Colloids volume administered ( ml) Blood Product volume administered (ml) Total IV fluid infused 1,700 11/27/24 10:49 DOCTOR OF NURSE ANESTHESIA.CSIR Anesthesia Postop Eval I: Summary Notes Anesthesia Complication No 11/27/24 10:49 DOCTOR OF NURSE ANESTHESIA.CSIR Anesthesia Complication Comment: Post-operative progress note Anesthesia: Postop Eval II Evaluation Mental status: Awake and Calm Pain Level: 1 nausea: No Vomiting: No Complications Anesthesia Complication: No
== END 2024-11-27 14:20 | disposition home or self-care (01) ==
LOC: SDC 07:09 → AC 07:13
PROVIDERS: PCP Internal Medicine; Referring Provider Student in an Organized Health Care Education/Training Program; Visit Provider Student in an Organized Health Care Education/Training Program
PROC: 0SRD0JZ Replacement of Left Knee Joint with Synthetic Substitute, Open Approach (ICD-10-PCS; CPT 27447; principal; 2024-11-27 08:45)
DX: M17.0 Bilateral primary osteoarthritis of knee (principal); J45.909 Unspecified asthma, uncomplicated; Z79.899 Other long term (current) drug therapy; M22.42 Chondromalacia patellae, left knee; M21.162 Varus deformity, not elsewhere classified, left knee; Z87.891 Personal history of nicotine dependence; I10 Essential (primary) hypertension; E78.5 Hyperlipidemia, unspecified; E66.9 Obesity, unspecified; Z68.30 Body mass index [BMI] 30.0-30.9, adult
CPT/HCPCS: 27447; 64447; 20610; S2900; 01402; 73560; 82962; 97161; C1776; J2405; J3475